=== PATIENT | female | born 1945 | race Caucasian/White ===

== ENCOUNTER → 2016-12-23 | Outpatient (CLI) | payer OTHER ==
[~2016-12-23] MED LIST: ATOR-54 PO; CEPH-571 PO; PRED10TA PO; VALA1TAB PO; WARF5TAB90 PO; WARF7.5T PO
[2016-12-23 12:52] LABS: BASO % 0.6 %; BASO ABS # 0.05 K/uL (0-0.2); COMPLETE YES; EOS % 1.2 %; HEMATOCRIT 42.6 % (37-47); IG% 0.7 %; LYMPH % 29.3 %; LYMPH ABS # 2.44 K/uL (1.2-3.4); MEAN CELL VOLUME 90.6 fL (80-100); MEAN CORPUSCULAR HEMOGLOBIN 30.6 pg (25-34); MEAN CORPUSCULAR HGB CONC 33.8 g/dl (32-36); MEAN PLATELET VOLUME 9.3 fL (7.4-10.4); MONO % 7.8 %; NEUT % 60.4 %; PLATELET COUNT 235 K/uL (130-400); WHITE BLOOD COUNT 8.34 K/uL (4.8-10.8)
[2016-12-23 13:05] LABS: ALT/SGPT 42 U/L (12-78); BLOOD UREA NITROGEN 10 mg/dl (7-18); BUN/CREATININE RATIO 15.5 (10-20); CALCIUM 8.9 mg/dl (8.5-10.1); CARBON DIOXIDE 27 mmol/L (21-32); CHLORIDE 106 mmol/L (98-107); CHOLESTEROL 234 mg/dl (0-200); CREATININE 0.64 mg/dl (0.60-1.20); GLUCOSE 100 mg/dl (70-99); SODIUM 141 mmol/L (136-145); TRIGLYCERIDES 214 mg/dl (0-150); VERY LOW DENSITY LIPOPROT CALC 43 mg/dl
[2016-12-23 13:10] LABS: ALB/GLOB RATIO 0.9 (0.9-2); ALKALINE PHOSPHATASE 114 U/L (45-117); AST/SGOT 25 U/L (15-37); CHOLESTEROL/HDL RATIO 3.3; HDL CHOLESTEROL 71 mg/dl; LDL CHOLESTEROL CALCULATED 120 mg/dl
== END | disposition home or self-care (01) ==
LOC: C.LABPVFM 13:00
PROVIDERS: ATTEND Family Medicine
DX: D86.9 Sarcoidosis, unspecified (principal); E78.00 Pure hypercholesterolemia, unspecified; M81.0 Age-related osteoporosis without current pathological fracture

== ENCOUNTER 2017-01-05 10:51 | Emergency (ER) | payer OTHER ==
[~2017-01-05] VITALS: Ht 152.4 cm; Wt 78.1 kg
[2017-01-05 10:55] VITALS: TEMP 36.9; Ht 152.4 cm; Wt 78.1 kg
[2017-01-05 11:19] VITALS: O2SAT 96
[2017-01-05] MEDS ORDERED: ALBUT/IPRATROP 3MG/0.5MG NEB 3 ML VIAL INH STA (11:36)
[2017-01-05] MEDS ORDERED: LEVAQUIN 750MG / 150ML D5W IV STA (11:36)
[2017-01-05] MEDS ORDERED: METHYLPREDNISOLONE 125 MG VIAL ONE (11:43)
[2017-01-05] MEDS ORDERED: METHYLPREDNISOLONE IV 125 MG in SYRINGE 0 ML IV ONE (11:45)
[2017-01-05 11:57] LABS: BASO % 0.5 %; BASO ABS # 0.04 K/uL (0-0.2); COMPLETE YES; EOS % 0.1 %; HEMATOCRIT 41.8 % (37-47); IG% 0.6 %; LYMPH % 11.3 %; LYMPH ABS # 0.87 K/uL (1.2-3.4); MEAN CELL VOLUME 88.4 fL (80-100); MEAN CORPUSCULAR HEMOGLOBIN 30.4 pg (25-34); MEAN CORPUSCULAR HGB CONC 34.4 g/dl (32-36); MEAN PLATELET VOLUME 8.7 fL (7.4-10.4); MONO % 2.1 %; NEUT % 85.4 %; PLATELET COUNT 208 K/uL (130-400); RED BLOOD COUNT 4.73 M/uL (4.2-5.4); WHITE BLOOD COUNT 7.71 K/uL (4.8-10.8)
[2017-01-05 12:05] LABS: BLOOD UREA NITROGEN 11 mg/dl (7-18); BUN/CREATININE RATIO 14.5 (10-20); CALCIUM 9.1 mg/dl (8.5-10.1); CARBON DIOXIDE 26 mmol/L (21-32); CHLORIDE 100 mmol/L (98-107); CREATININE 0.77 mg/dl (0.60-1.20); GLUCOSE 212 mg/dl (70-99); POTASSIUM 3.9 mmol/L (3.5-5.1); SODIUM 135 mmol/L (136-145)
[2017-01-05 12:21] LABS: PARTIAL THROMBOPLASTIN RATIO 1.9; PROTHROMBIN TIME (PATIENT) 41.1 SECONDS (9.0-12.0)
[2017-01-05 12:51] LABS: INR 3.6 (0.9-1.1)
--- NOTE | 2017-01-05 15:44 | EMERGENCY ROOM VISIT NOTE ---
History Report prepared by Deedee: Molly Cary Under the Supervision of: Dr. Kris Torres D.O. First contact with patient: 11:27 Chief Complaint: RESPIRATORY PROBLEMS Stated Complaint: ACUTE BRONCHITIS, COUGH, SOB Nursing Triage Summary: Short of breath, cough for approx one week, seen in [facility] office, oxygen sats 88-89%, told to come to the ER. See orange call-in note. History of Present Illness The patient is a 71 year old female who presents to the Emergency Room with complaints of a persistent cough for the past five days. The patient states that her cough has been productive and notes that she has been bringing up white sputum. The patient notes a history of Sarcoidosis, but denies any history of congestive heart failure. She denies wearing oxygen at home, but states that she sleeps with a c-pap machine. The patient denies using nebulizers at home. She states that for the last 48 hours she has been on an antibiotic and steroids. She states that she has a history of a TIA at the age of 36. The patient states that she has a history of PE after her hysterectomy. She states that she is on Warfarin for her previous PE and TIA. The patient notes a history of Factor V. She associates shortness of breath with her symptoms today. The patient states that she had seen her PCP a few days ago, noting that she got a pneumonia shot. Source of History: patient Onset: five days Quality: other (global) Timing: other (persistent) Modifying Factors (Worsening): other (cough) Associated Symptoms: + SOB Review of Systems See HPI for pertinent positives & negatives. A total of 10 systems reviewed and were otherwise negative. Past Medical & Surgical Medical Problems: (1) Factor V Leiden mutation (2) H/O: hysterectomy (3) History of sarcoidosis (4) Pulmonary embolism (5) TIA (transient ischemic attack) Family History Diabetes mellitus Social History Smoking Status: Never Smoker Alcohol Use: none Drug Use: none Marital Status: Housing Status: lives with family Current/Historical Medications Scheduled Atorvastatin (Lipitor), 20 MG PO DAILY Cephalexin (Keflex), 500 MG PO QID Prednisone Tab (Prednisone), 10 MG PO DAILY Warfarin Sodium (Coumadin), 5 MG PO DAILY Allergies Coded Allergies: Chocolate (Verified Allergy, Unknown, 12/18/09) Physical Exam Vital Signs Date Time Temp Pulse Resp B/P Pulse Ox O2 Delivery O2 Flow Rate FiO2 01/05/17 13:57 86 20 154/78 96 Nasal Cannula 2.0 01/05/17 12:46 86 18 167/84 01/05/17 11:23 89 01/05/17 11:19 92 Room Air 01/05/17 11:19 96 Nasal Cannula 2.0 01/05/17 10:58 92 Room Air 01/05/17 10:55 36.9 82 24 171/87 92 Room Air Physical Exam CONSTITUTIONAL/VITAL SIGNS: Reviewed / noted above. GENERAL: Non-toxic in appearance. INTEGUMENTARY: Warm, dry, and [place]. HEAD: Normocephalic. EYES: without scleral icterus or trauma. ENT/OROPHARYNX: clear and moist. LYMPHADENOPATHY/NECK: Is supple without lymphadenopathy or meningismus. RESPIRATORY: Bilateral expiratory wheezing, diminished breath sounds. Mild increased work of breathing. CARDIOVASCULAR: Regular rate and rhythm. GI/ABDOMEN: Soft and nontender. No organomegaly or pulsatile mass. No rebound or guarding. Normal bowel sounds. EXTREMITIES: Warm and well perfused. BACK: No CVA tenderness. NEUROLOGICAL: Intact without focal deficits. PSYCHIATRIC: normal affect. MUSCULOSKELETAL: Normally developed with good muscle tone. Medical Decision & Procedures ER Provider Diagnostic Interpretation: X ray results and stated below per my interpretation and radiology interpretation. CHEST 2 VIEWS ROUTINE CLINICAL HISTORY: SOB dyspnea COMPARISON STUDY: 10/28/2015 FINDINGS: Diffuse mid and upper lobe fibrotic change. Chronic pleural reactive change left lung base. No evidence for an acute or superimposed process. IMPRESSION: Diffuse pulmonary fibrotic change unaltered from the prior study. No acute process. Electronically signed by: Cy Desai M.D. 01/05/2017 9:44 AM Dictated Date/Time: 01/05/2017 9:43 AM The status of this report is Signed. Draft = Not yet reviewed or approved by Radiologist. Signed = Reviewed and approved by Radiologist. Laboratory Results 01/05/17 11:20 Red Blood Count 4.73, Mean Corpuscular Volume 88.4, Mean Corpuscular Hemoglobin 30.4, Mean Corpuscular Hemoglobin Concent 34.4, Mean Platelet Volume 8.7, Neutrophils (%) (Auto) 85.4, Lymphocytes (%) (Auto) 11.3, Monocytes (%) (Auto) 2.1, Eosinophils (%) (Auto) 0.1, Basophils (%) (Auto) 0.5, Neutrophils # (Auto) 6.58, Lymphocytes # (Auto) 0.87, Monocytes # (Auto) 0.16, Eosinophils # (Auto) 0.01, Basophils # (Auto) 0.04 01/05/17 11:20 Test 01/05/17 11:20 01/05/17 11:50 White Blood Count 7.71 K/uL (4.8-10.8) Red Blood Count 4.73 M/uL (4.2-5.4) Hemoglobin 14.4 g/dL (12.0-16.0) Hematocrit 41.8 % (37-47) Mean Corpuscular Volume 88.4 fL (80-100) Mean Corpuscular Hemoglobin 30.4 pg (25-34) Mean Corpuscular Hemoglobin Concent 34.4 g/dl (32-36) Platelet Count 208 K/uL (130-400) Mean Platelet Volume 8.7 fL (7.4-10.4) Neutrophils (%) (Auto) 85.4 % Lymphocytes (%) (Auto) 11.3 % Monocytes (%) (Auto) 2.1 % Eosinophils (%) (Auto) 0.1 % Basophils (%) (Auto) 0.5 % Neutrophils # (Auto) 6.58 K/uL (1.4-6.5) Lymphocytes # (Auto) 0.87 K/uL (1.2-3.4) Monocytes # (Auto) 0.16 K/uL (0.11-0.59) Eosinophils # (Auto) 0.01 K/uL (0-0.5) Basophils # (Auto) 0.04 K/uL (0-0.2) RDW Standard Deviation 45.5 fL (36.4-46.3) RDW Coefficient of Variation 13.9 % (11.5-14.5) Immature Granulocyte % (Auto) 0.6 % Immature Granulocyte # (Auto) 0.05 K/uL (0.00-0.02) Prothrombin Time 41.1 SECONDS (9.0-12.0) Prothromb Time International Ratio 3.6 (0.9-1.1) Activated Partial Thromboplast Time 50.4 SECONDS (21.0-31.0) Partial Thromboplastin Ratio 1.9 Anion Gap 9.0 mmol/L (3-11) Est Creatinine Clear Calc Drug Dose 60.1 ml/min Estimated GFR () 88.8 Estimated GFR (Non- 76.6 BUN/Creatinine Ratio 14.5 (10-20) Calcium Level 9.1 mg/dl (8.5-10.1) Troponin I < 0.015 ng/ml (0-0.045) Influenza Type A Antigen Neg for Influ A (NEG) Influenza Type B Antigen Neg for Influ B (NEG) Laboratory results as stated above per my review. Medications Administered Medications (Trade) Dose Ordered Sig/Tejal Route Start Time Stop Time Status Last Admin Dose Admin Albuterol/ Ipratropium (Duoneb) 3 ml NOW STAT INH 01/05/17 11:36 01/05/17 11:39 DC 01/05/17 11:50 3 ML Levofloxacin (Levaquin / D5W) 750 mg NOW STAT IV 01/05/17 11:36 01/05/17 11:39 DC 01/05/17 12:10 750 MG Methylprednisolone Sodium Succinate (Solu-Medrol IV) 125 mg STK-MED ONCE .ROUTE 01/05/17 11:43 01/05/17 11:46 DC 01/05/17 11:50 125 MG ECG Indication: SOB/dyspnea Rate (beats per minute): 91 Rhythm: normal sinus Findings: no acute ischemic change, no ectopy ED Course 1133: Previous medical records were reviewed. The patient was evaluated in room C8. A complete history and physical examination was performed. 1136: Ordered Levofloxacin 750 mg IV, DuoNeb 3 ml INH. 1143: Ordered Solu-Medrol IV 125 mg .route. 1145: Ordered Methylprednisolone Sodium Succinate 125 mg/Syringe 2 ml @ 1.5 mls/ min IV. 1539: I reevaluated the patient and she is resting comfortably. I discussed the exam findings with her and I discussed the treatment plan. She verbalized complete understanding and agreement. She is ready to go home. Medical Decision The differential was considered includes acute myocardial infarction, acute coronary syndrome, myocarditis, pericarditis, pericardial effusions /tamponad, esophageal perforation, pulmonary embolism, pneumonia, pneumothorax, cardiomyopathy, congestive heart, anemia , COPD/asthma exacerbation. This is a 71-year-old female who presents to the ED with a chief complaint of shortness of breath and cough for the past 5 days. She reports a small amount of white phlegm. She's been on antibiotics for the past 48 hours and prednisone as well. She will be on that for 5 days. The patient does have a history of PE and is on Coumadin. Her vital signs are stable. Her exam reveals expiratory wheezing throughout. Chest x-ray reveals diffuse chronic fibrotic changes but nothing acute. EKG shows a normal sinus rhythm. INR 3.6. CBC is normal. PRP is unremarkable. Glucose was 222 white related to steroids. Troponin is negative. Flu swab was negative. The patient was told results of the tests. She was treated with DuoNeb treatment here and IV Solu- Medrol as well as IV Levaquin. The patient was told results the test. She is stable for discharge. Impression Primary Impression: Bronchitis Scribe Attestation The scribe's documentation has been prepared under my direction and personally reviewed by me in its entirety. I confirm that the note above accurately reflects all work, treatment, procedures, and medical decision making performed by me. Departure Information Dispostion Home / Self-Care Referrals Remi Reagan M.D. (PCP) Patient Instructions Bronchitis Acute, My [facility] Additional Instructions Follow-up with your doctor for further care and evaluation in 1-2 days. Return to the emergency department for worsening or new symptoms or any concerns. You have been examined and treated today on an emergency basis only. This is not a substitute for, or an effort to provide, complete comprehensive medical care. It is impossible to recognize and treat all injuries or illnesses in a single emergency department visit. It is therefore important that you follow up closely with your doctor. Call as soon as possible for an appointment. Continue your current home therapy.
[2017-01-05 16:02] VITALS: BP 154/78; PULSE 96; O2SAT 91
== END 2017-01-05 16:09 | disposition home or self-care (01) ==
LOC: C.EDB 10:54 → C.EDC 16:09
DX: J40 Bronchitis, not specified as acute or chronic (principal); Z86.73 Personal history of transient ischemic attack (TIA), and cerebral infarction without residual deficits; Z90.710 Acquired absence of both cervix and uterus; Z86.711 Personal history of pulmonary embolism; Z79.01 Long term (current) use of anticoagulants; D68.51 Activated protein C resistance; Z83.3 Family history of diabetes mellitus; Z79.899 Other long term (current) drug therapy; J84.10 Pulmonary fibrosis, unspecified

== ENCOUNTER → 2017-01-05 | Outpatient (CLI) | payer OTHER ==
--- NOTE | 2017-01-05 09:46 | DIAGNOSTIC IMAGING REPORT ---
CHEST 2 VIEWS ROUTINE CLINICAL HISTORY: SOB dyspnea COMPARISON STUDY: 10/28/2015 FINDINGS: Diffuse mid and upper lobe fibrotic change. Chronic pleural reactive change left lung base. No evidence for an acute or superimposed process. IMPRESSION: Diffuse pulmonary fibrotic change unaltered from the prior study. No acute process. Electronically signed by: Cy Desai M.D. 01/05/2017 9:44 AM Dictated Date/Time: 01/05/2017 9:43 AM
== END | disposition home or self-care (01) ==
LOC: C.RADPV 09:31
PROVIDERS: ATTEND Nurse Practitioner
DX: R06.02 Shortness of breath (principal); J84.10 Pulmonary fibrosis, unspecified

== ENCOUNTER → 2017-02-16 | Outpatient (CLI) | payer OTHER ==
[~2017-02-16] MED LIST changes: -VALA1TAB PO; -WARF7.5T PO
[2017-02-16 18:52] LABS: LYME DISEASE AB IGG NEG (NEG); LYME DISEASE AB IGM NEG (NEG)
== END | disposition home or self-care (01) ==
LOC: C.LABPVFM 11:55
PROVIDERS: ATTEND Family Medicine
DX: T14.8 Other injury of unspecified body region (principal); W57.XXXA Bitten or stung by nonvenomous insect and other nonvenomous arthropods, initial encounter

== ENCOUNTER → 2017-04-17 | Outpatient (CLI) | payer OTHER ==
[2017-04-17 12:18] LABS: BASO % 1.3 %; BASO ABS # 0.08 K/uL (0-0.2); COMPLETE YES; EOS % 1.9 %; HEMATOCRIT 42.9 % (37-47); IG% 0.5 %; LYMPH % 35.5 %; LYMPH ABS # 2.25 K/uL (1.2-3.4); MEAN CELL VOLUME 92.3 fL (80-100); MEAN CORPUSCULAR HEMOGLOBIN 30.8 pg (25-34); MEAN CORPUSCULAR HGB CONC 33.3 g/dl (32-36); MEAN PLATELET VOLUME 9.4 fL (7.4-10.4); MONO % 8.7 %; NEUT % 52.1 %; PLATELET COUNT 225 K/uL (130-400); RED BLOOD COUNT 4.65 M/uL (4.2-5.4); WHITE BLOOD COUNT 6.33 K/uL (4.8-10.8)
[2017-04-17 12:37] LABS: ALT/SGPT 26 U/L (12-78); AST/SGOT 16 U/L (15-37); BLOOD UREA NITROGEN 9 mg/dl (7-18); CALCIUM 8.7 mg/dl (8.5-10.1); CARBON DIOXIDE 26 mmol/L (21-32); CHLORIDE 108 mmol/L (98-107); CREATININE 0.62 mg/dl (0.60-1.20); GLUCOSE 98 mg/dl (70-99); POTASSIUM 4.2 mmol/L (3.5-5.1); SODIUM 143 mmol/L (136-145)
[2017-04-17 12:40] LABS: ALB/GLOB RATIO 0.9 (0.9-2); ALKALINE PHOSPHATASE 124 U/L (45-117); CHOLESTEROL 194 mg/dl (0-200); CHOLESTEROL/HDL RATIO 3.1; HDL CHOLESTEROL 63 mg/dl; LDL CHOLESTEROL CALCULATED 87 mg/dl; TRIGLYCERIDES 218 mg/dl (0-150); VERY LOW DENSITY LIPOPROT CALC 44 mg/dl
== END | disposition home or self-care (01) ==
LOC: C.LABPVFM 14:05
PROVIDERS: ATTEND Family Medicine
DX: D86.9 Sarcoidosis, unspecified (principal); E78.00 Pure hypercholesterolemia, unspecified; I26.99 Other pulmonary embolism without acute cor pulmonale

== ENCOUNTER → 2017-05-02 | Outpatient (CLI) | payer OTHER ==
[2017-05-02 15:13] LABS: LYME DISEASE AB IGG NEG (NEG)
[2017-05-02 15:18] LABS: LYME DISEASE AB IGM NEG (NEG)
== END | disposition home or self-care (01) ==
LOC: C.LABPVFM 11:50
PROVIDERS: ATTEND Family Medicine
DX: T14.8 Other injury of unspecified body region (principal); W57.XXXA Bitten or stung by nonvenomous insect and other nonvenomous arthropods, initial encounter

== ENCOUNTER → 2017-09-26 | Outpatient (CLI) | payer OTHER ==
[2017-09-26 12:33] LABS: BASO % 1.1 %; BASO ABS # 0.07 K/uL (0-0.2); COMPLETE YES; EOS % 3.3 %; HEMATOCRIT 43.9 % (37-47); IG% 0.6 %; LYMPH % 31.5 %; LYMPH ABS # 2.03 K/uL (1.2-3.4); MEAN CELL VOLUME 91.6 fL (80-100); MEAN CORPUSCULAR HEMOGLOBIN 30.5 pg (25-34); MEAN CORPUSCULAR HGB CONC 33.3 g/dl (32-36); MEAN PLATELET VOLUME 9.6 fL (7.4-10.4); MONO % 8.1 %; NEUT % 55.4 %; PLATELET COUNT 231 K/uL (130-400); RED BLOOD COUNT 4.79 M/uL (4.2-5.4); WHITE BLOOD COUNT 6.45 K/uL (4.8-10.8)
[2017-09-26 13:03] LABS: ALT/SGPT 30 U/L (12-78); BLOOD UREA NITROGEN 9 mg/dl (7-18); BUN/CREATININE RATIO 12.7 (10-20); CALCIUM 9.2 mg/dl (8.5-10.1); CARBON DIOXIDE 27 mmol/L (21-32); CHLORIDE 105 mmol/L (98-107); CHOLESTEROL 188 mg/dl (0-200); CREATININE 0.69 mg/dl (0.60-1.20); GLUCOSE 106 mg/dl (70-99); POTASSIUM 4.1 mmol/L (3.5-5.1); SODIUM 142 mmol/L (136-145)
[2017-09-26 13:06] LABS: ALB/GLOB RATIO 0.9 (0.9-2); ALKALINE PHOSPHATASE 132 U/L (45-117); AST/SGOT 20 U/L (15-37); CHOLESTEROL/HDL RATIO 3.2; HDL CHOLESTEROL 59 mg/dl; LDL CHOLESTEROL CALCULATED 79 mg/dl; TRIGLYCERIDES 252 mg/dl (0-150); VERY LOW DENSITY LIPOPROT CALC 50 mg/dl
== END | disposition home or self-care (01) ==
LOC: C.LABPVFM 13:11
PROVIDERS: ATTEND Family Medicine
DX: D86.9 Sarcoidosis, unspecified (principal); E78.00 Pure hypercholesterolemia, unspecified; Z79.01 Long term (current) use of anticoagulants; R03.0 Elevated blood-pressure reading, without diagnosis of hypertension

== ENCOUNTER → 2017-10-17 | Outpatient (CLI) | payer OTHER | END | disposition home or self-care (01) | LOC: C.LABPVFM 12:29 | PROVIDERS: ATTEND Family Medicine | DX: D86.9 Sarcoidosis, unspecified (principal) ==

== ENCOUNTER → 2017-12-01 | Outpatient (CLI) | payer OTHER | END | disposition home or self-care (01) | LOC: C.LABPVFM 16:29 | PROVIDERS: ATTEND Nurse Practitioner | DX: D86.9 Sarcoidosis, unspecified (principal) ==

== ENCOUNTER → 2018-02-02 | Outpatient (CLI) | payer OTHER ==
[2018-02-02 13:12] LABS: BLOOD UREA NITROGEN 11 mg/dl (7-18); CARBON DIOXIDE 25 mmol/L (21-32); CREATININE 0.71 mg/dl (0.60-1.20); GLUCOSE 326 mg/dl (70-99); POTASSIUM 3.9 mmol/L (3.5-5.1); SODIUM 134 mmol/L (136-145)
[2018-02-03 07:38] LABS: HEMOGLOBIN A1C 12.5 % (4.5-5.6)
== END | disposition home or self-care (01) ==
LOC: C.LABPVFM 14:07
PROVIDERS: ATTEND Nurse Practitioner
DX: R73.9 Hyperglycemia, unspecified (principal); D68.51 Activated protein C resistance; E78.00 Pure hypercholesterolemia, unspecified

== ENCOUNTER → 2018-03-14 | Outpatient (CLI) | payer OTHER ==
[2018-03-14 13:35] LABS: ALBUMIN 3.7 gm/dl (3.4-5.0); ALT/SGPT 34 U/L (12-78); AST/SGOT 19 U/L (15-37); BLOOD UREA NITROGEN 14 mg/dl (7-18); CALCIUM 9.1 mg/dl (8.5-10.1); CARBON DIOXIDE 27 mmol/L (21-32); CREATININE 0.63 mg/dl (0.60-1.20); GLUCOSE 126 mg/dl (70-99); POTASSIUM 4.1 mmol/L (3.5-5.1); SODIUM 138 mmol/L (136-145)
[2018-03-14 13:38] LABS: ALKALINE PHOSPHATASE 98 U/L (45-117); TOTAL PROTEIN 6.9 gm/dl (6.4-8.2)
[2018-03-14 13:40] LABS: HEMOGLOBIN A1C 10.4 % (4.5-5.6)
== END | disposition home or self-care (01) ==
LOC: C.LABPVFM 08:16
PROVIDERS: ATTEND Family Medicine
DX: E11.9 Type 2 diabetes mellitus without complications (principal)

== ENCOUNTER 2018-11-25 13:31 | Observation (INO) ==
[2018-11-25 14:19] LABS: Basophils # (auto) 0.05 K/uL (0-0.2); Basophils % (auto) 0.6 %; Eosinophils % (auto) 1.3 %; Hematocrit (blood only) 44.3 % (37-47); Hemoglobin 15.2 g/dL (12.0-16.0); Immature Granulocytes # (auto) 0.02 K/uL (0.00-0.02); Immature Granulocytes % (auto) 0.3 %; Lymphocytes # (auto) 1.61 K/uL (1.2-3.4); Lymphocytes % (auto) 20.5 %; Mean Corpuscular Hgb Conc 34.3 g/dL (32-36); Mean Corpuscular Volume 92.7 fL (80-100); Mean Platelet Volume 8.9 fL (7.4-10.4); Monocytes # (auto) 0.74 K/uL (0.11-0.59); Monocytes % (auto) 9.4 %; Neutrophils # (auto) 5.35 K/uL (1.4-6.5); Neutrophils % (auto) 67.9 %; Platelet Count 212 K/uL (130-400); RDW Coefficient of Variation 12.8 % (11.5-14.5); RDW Standard Deviation 43.5 fL (36.4-46.3); Red Blood Count 4.78 M/uL (4.2-5.4); White Blood Count 7.87 K/uL (4.8-10.8)
[2018-11-25 14:33] LABS: INR 2.3 (0.9-1.1); Partial Thromboplastin Ratio 1.4; Partial Thromboplastin Time 35.4 Seconds (21.0-31.0); Prothrombin Time 22.2 Seconds (9.0-12.0)
[2018-11-25 14:37] LABS: Alanine Aminotransferase 24 U/L (12-78); Albumin Level 3.6 gm/dl (3.4-5.0); Aspartate Aminotransferase 16 U/L (15-37); BUN Creatinine Ratio 14.1 (10-20); Blood Urea Nitrogen 12 mg/dl (7-18); Calcium 8.9 mg/dl (8.5-10.1); Carbon Dioxide 26 mmol/L (21-32); Chloride 101 mmol/L (98-107); Creatinine Clr Calc Pharmacy 47.6 ml/min; Est GFR (African American) 78.8; Glucose 86 mg/dl (70-99); Magnesium 1.9 mg/dl (1.8-2.4); Potassium 3.7 mmol/L (3.5-5.1); Sodium 138 mmol/L (136-145)
[2018-11-25 14:37] LABS: Appearance Urine Clear (Clear); Bacteria Urine Automated Negative (Negative); Bilirubin Urine Negative (Negative); Color Urine Dark Yellow; Epithelial Cell Urine Auto 20-30 /lpf (0-5); Glucose Urine UA Negative (Negative); Ketones Urine Trace (Negative); Leukocyte Esterase Urine 2+ (Negative); Nitrite Urine Negative (Negative); Protein Urine Negative (Negative); Specific Gravity Urine 1.021 (1.000-1.030); Urobilinogen Urine Negative (Negative); pH Urine 5.5 (4.5-7.5)
[2018-11-25 14:42] LABS: Albumin Globulin Ratio 1.1 (0.9-2); Alkaline Phosphatase 76 U/L (45-117); Bilirubin,Total 1.4 mg/dl (0.2-1); Globulin 3.4 gm/dl (2.5-4.0); Troponin I < 0.015 ng/ml (0-0.045)
[2018-11-25] MEDS ORDERED: IOVERSOL 100ml IV PRN (15:13)
--- NOTE | 2018-11-25 15:24 | CT Scan Report ---
HEAD CT NONCONTRAST CT DOSE: HISTORY: Stroke evaluation TECHNIQUE: Multiaxial CT images of the head were performed without the use of intravenous contrast. A utomated exposure control was utilized for this study. A dose lowering technique was utilized adheri ng to the principles of ALARA. Comparison: None. Findings: The paranasal sinuses and mastoid air cells are clear. The calvarium and skull base are int act. The ventricles and sulci are within normal limits. There is no mass, hematoma, midline shift, or acute infarct. Impression: No acute intracranial abnormality. Electronically signed by: Werner Umaña M.D. 11/25/2018 3:22 PM
--- NOTE | 2018-11-25 15:29 | CT Scan Report ---
HEAD & NECK CTA HISTORY: expressive aphasia, resolved TECHNIQUE: Multiaxial CT images of the head were performed following the intravenous administration o f contrast to evaluate the major cerebral vessels. Multiaxial CT images of the neck were also perform ed following the intravenous administration of contrast to evaluate the major cervical vessels. Maxim um intensity projection images were also obtained. A dose lowering technique was utilized adhering to the principles of ALARA. COMPARISON: None. FINDINGS: There is no mass, hematoma, midline shift, or acute infarct. Visualized intracranial internal carotid arteries, distal vertebral arteries, and basilar artery are widely patent. There is no significant s tenosis, occlusion, or aneurysm seen within the bilateral ACAs, MCAs, or gas producer. Hypoplastic distal rig ht vertebral artery. The aortic arch and proximal great vessels are widely patent. There is no significant stenosis, occ lusion, or dissection identified within the bilateral common carotid, internal carotid, or vertebral arteries. Bilateral irregular airspace opacities within the visualized lungs persist. This favors sca rring. No pneumothorax. There is a 2.6 cm substernal thyroid nodule. Slightly hypoplastic right verte bral artery. IMPRESSION: 1. No significant stenosis, occlusion, or aneurysm within the [place]. 2. No significant stenosis, occlusion, or dissection identified within the carotid or vertebral arter ies. 3. A 2.6 cm substernal thyroid nodule. Electronically signed by: Werner Umaña M.D. 11/25/2018 3:28 PM
--- NOTE | 2018-11-25 15:29 | CT Scan Report ---
HEAD & NECK CTA HISTORY: expressive aphasia, resolved TECHNIQUE: Multiaxial CT images of the head were performed following the intravenous administration o f contrast to evaluate the major cerebral vessels. Multiaxial CT images of the neck were also perform ed following the intravenous administration of contrast to evaluate the major cervical vessels. Maxim um intensity projection images were also obtained. A dose lowering technique was utilized adhering to the principles of ALARA. COMPARISON: None. FINDINGS: There is no mass, hematoma, midline shift, or acute infarct. Visualized intracranial internal carotid arteries, distal vertebral arteries, and basilar artery are widely patent. There is no significant s tenosis, occlusion, or aneurysm seen within the bilateral ACAs, MCAs, or box printer. Hypoplastic distal rig ht vertebral artery. The aortic arch and proximal great vessels are widely patent. There is no significant stenosis, occ lusion, or dissection identified within the bilateral common carotid, internal carotid, or vertebral arteries. Bilateral irregular airspace opacities within the visualized lungs persist. This favors sca rring. No pneumothorax. There is a 2.6 cm substernal thyroid nodule. Slightly hypoplastic right verte bral artery. IMPRESSION: 1. No significant stenosis, occlusion, or aneurysm within the [place]. 2. No significant stenosis, occlusion, or dissection identified within the carotid or vertebral arter ies. 3. A 2.6 cm substernal thyroid nodule. Electronically signed by: Werner Umaña M.D. 11/25/2018 3:28 PM
[2018-11-25] MEDS ORDERED: ASPIRIN 81 MG CHEW PO STA (16:10)
--- NOTE | 2018-11-25 16:23 | History & Physical Report ---
Date of Service November 25, 2018 Assessment & Plan (1) History of TIA (transient ischemic attack): Patient 50-minute transient episode of word searching or word finding issues. Initial imaging study in the ER is unremarkable will order an MRI of her brain, Doppler. And an echocardiogram due to her new found heart murmur. She is given an aspirin continued on her home medications at this point time (2) Diabetes: Because of the dye use for her CT angiogram her metformin will be held insulin sliding scale will be used with a carbohydrate friendly diet (3) Factor V Leiden mutation: Patient is therapeutic with her INR Coumadin will be continued (4) Adrenal suppression: Patient is on chronic prednisone use for history of sarcoidosis she is not exhibiting any signs and symptoms of adrenal insufficiency we will continue to monitor her for clinical signs (5) DVT prophylaxis: DVT prevention is Coumadin History of Present Illness Primary Care Provider: RASHI Stanford Patient is a 73-year-old relatively healthy female with a history of factor V Leiden and sarcoidosis which is been in remission who had a 15-minute episode of inability to speak word searching at home. She is in the presence of her family when she was sort of leaning to the side with a positive look on her face and can communicate with them for about 15 minutes. The patient typically only takes metformin for her diabetes and her diabetes is of recent onset after she had influenza. Her blood sugar this morning was in the 90s and it currently was 86 on presentation. Complete resolution of her symptoms here in the ER she had a negative head CT CTA of head and neck which was unremarkable the exception of a thyroid nodule commented on, her EKG shows sinus rhythm with right bundle branch block To be brought in for observation as she had an ABC D2 score suggestive that she should be observed Allergies Allergy/AdvReac Type Severity Reaction Status Date / Time chocolate flavor Allergy Unknown Verified 11/25/18 14:49 Home Medications Home Medications Medication Instructions Recorded Confirmed Type ascorbic acid (vitamin C) 500 mg PO HS 11/25/18 11/25/18 History atorvastatin [Lipitor] 20 mg PO HS 11/25/18 11/25/18 History calcium carbonate [Calcium 500] 500 mg PO HS 11/25/18 11/25/18 History cholecalciferol (vitamin D3) 1,000 units PO HS 11/25/18 11/25/18 History [Vitamin D3] latanoprost [Xalatan] 1 drp OPB HS 11/25/18 11/25/18 History metformin [Glucophage] 1,000 mg PO BID 11/25/18 11/25/18 History prednisone 10 mg PO HS 11/25/18 11/25/18 History vitamin B complex 1 tab PO HS 11/25/18 11/25/18 History vitamin E 400 unit PO HS 11/25/18 11/25/18 History warfarin [Coumadin] 5 mg PO HS 11/25/18 11/25/18 History zinc 50 mg PO 3XWK 11/25/18 11/25/18 History Past Med/Surg History Medical History History of sarcoidosis (Chronic) Factor V Leiden mutation (Chronic) Diabetes (Chronic) History of TIA (transient ischemic attack) (Resolved) HTN (hypertension) Family History Mother Diabetes Stroke Social History Feels Safe at Home: Yes Smoking Status: Never smoker Review of Systems ROS: well nourished well developed. Patient an episode of word searching lasting approximately 15 minutes the remainder of the review of systems are unremarkable No double vision blurry vision No problems with speech or swallowing No palpitations, chest pain or pressure No Wheezing or breathing issues No abdominal pain nausea vomiting diarrhea changes in appetite or weight No burning urine urine frequency or changes in color No focal joint pain or muscle pain No skin rashes or oral lesions No unusual bruising or bleeding No focused back pain or numbness or loss of strength No changes in memory or confusion Physical Exam 2 Vital Signs (Past 24 Hours): Last Vital Signs Temp 36.9 C 11/25/18 13:33 Pulse 80 11/25/18 16:15 Resp 18 11/25/18 16:15 BP 151/82 H 11/25/18 16:15 Pulse Ox 95 11/25/18 16:15 The patient appeared well nourished and normally developed. Vital signs as documented. Head exam is unremarkable. No scleral icterus or corneal arcus noted Neck is without jugular venous distension, thyromegaly, or lymphademopathy Lungs are clear to auscultation and percussion. Cardiac exam reveals Rhythm is regular. First and second heart sounds normal. She did have a heart murmur which she was not sure that she had been told before Abdominal exam reveals normal bowel sounds, no masses, no organomegaly Extremities are nonedematous and both pedal pulses are normal. Neurologic exam is A&Ox3, no focal deficits, strength is equal bilateral Skin is warm Dry without bruises or lesions Results & Data Diagnostic Findings cta head and neck IMPRESSION: 1. No significant stenosis, occlusion, or aneurysm within the [place]. 2. No significant stenosis, occlusion, or dissection identified within the carotid or vertebral arteries. 3. A 2.6 cm substernal thyroid nodule.
--- NOTE | 2018-11-25 16:48 | Emergency Department Note ---
Entered by Bari Ocampo acting as a scribe for Salomón Mccallum MD History of Present Illness General Chief complaint: Confusion Stated complaint: CONFUSED DOESNT SEEM RIGHT Time Seen by Provider: 11/25/18 13:44 Source: patient and family History of Present Illness Onset (ago): hour(s) 1 Location: mouth (speech) Pain Consistency: + now resolved Quality: + other (speech difficulties for 15 minutes) Associated symptoms: no chest pain, no loss of appetite, no nausea/vomiting and no shortness of breath The patient is a 73 year old white female with a history of diabetes, TIA, PE and Factor V Leiden who presents to the Emergency Room with complaints of currently resolved speech difficulties occurring one hour ago. Family reports that for a period of 15 minutes, the patients words were scrambled and coming out backwards, noting difficulty with pronunciation. The patient states that she was aware she was not speaking properly and knew what she wanted to say. She states that she temporarily had a headache but nothing that youd take a pill for. She denies chest pain, shortness of breath, fall, head trauma , visual or hearing changes, loss of appetite, nausea, or vomiting. She denies a history of similar symptoms, migraines, or seizures. She does not she had a TIA in her 40s and regularly takes Coumadin, and her last INR was 1.8. She states that she does not drink alcohol or use tobacco. She reports that she regularly takes metformin for diabetes. The patient is not a tPA candidate as she takes Coumadin and is currently asymptomatic. Home Medications Home Medications Medication Instructions Recorded Confirmed Type ascorbic acid (vitamin C) 500 mg PO HS 11/25/18 11/25/18 History atorvastatin [Lipitor] 20 mg PO 11/25/18 11/25/18 History calcium carbonate [Calcium 500] 500 mg PO 11/25/18 11/25/18 History cholecalciferol (vitamin D3) 1,000 units PO 11/25/18 11/25/18 History [Vitamin D3] latanoprost [Xalatan] 1 drp OPB 11/25/18 11/25/18 History metformin [Glucophage] 1,000 mg PO BID 11/25/18 11/25/18 History prednisone 10 mg PO 11/25/18 11/25/18 History vitamin B complex 1 tab PO HS 11/25/18 11/25/18 History vitamin E 400 unit PO HS 11/25/18 11/25/18 History warfarin [Coumadin] 5 mg PO HS 11/25/18 11/25/18 History zinc 50 mg PO 3XWK 11/25/18 11/25/18 History Allergies Allergy/AdvReac Type Severity Reaction Status Date / Time chocolate flavor Allergy Unknown Verified 11/25/18 14:49 Past Med/Surg History Medical History History of sarcoidosis (Chronic) Factor V Leiden mutation (Chronic) Diabetes (Chronic) History of TIA (transient ischemic attack) (Resolved) HTN (hypertension) Family History Mother Diabetes Stroke Social History Feels Safe at Home: Yes Smoking Status: Never smoker Review of Systems See HPI for pertinent positives & negatives. and A total of 10 systems reviewed and were otherwise negative Physical Exam Vital Signs Vital Signs - 24 hr 11/25/18 13:33 11/25/18 14:27 11/25/18 16:15 Temperature 36.9 C Temperature Source Oral Sepsis Recent Fever Within 48 Hours No Sepsis New/Unexplained Change in Mental Status No Sepsis Action Taken by Nursing No Action Required Pulse Rate 81 Pulse Rate [Right Finger] 75 80 Respiratory Rate 18 18 18 Respiratory Effort / Characteristics Non-Labored Spontaneous Respiratory Depth Normal Normal Respiratory Pattern Regular Blood Pressure 165/78 H Blood Pressure [Right Arm] 150/80 H 151/82 H Blood Pressure Mean 107 Blood Pressure Mean [Right Arm] 103 105 Pulse Oximetry 99 98 95 Oxygen Delivery Method Room Air Room Air Room Air GENERAL: Well appearing, well nourished, NAD, non-toxic. EYE EXAM: Normal conjunctiva. PERRL, no anisocoria and EOM's grossly intact w/o pain. OROPHARYNX: No exudate, posterior pharynx is clear, no tonsillar/uvular deviation or swelling. NECK: Supple, no nuchal rigidity, no adenopathy, non-tender. No signs of meningismus. LUNGS: Clear to auscultation bilaterally. Normal chest wall mechanics. HEART: NSR, systolic ejection murmur. ABDOMEN: Abdomen soft, non-tender, normo-active bowel sounds, no masses, no rebound or guarding. BACK: No CVA TTP. SKIN: No rashes and no bruising. UPPER EXTREMITIES: Upper extremities are grossly normal. LOWER EXTREMITIES: No pitting edema. No calf pain NEURO EXAM: Cranial nerves II-XII grossly intact, normal speech, 5/5 strength in b/l upper and lower extremities, moves all 4 extremities without issue on command Course 1350: Past medical records reviewed. The patient was evaluated in room B10, and a complete history and physical examination were performed. 1410: I updated the patient and family on current results. 1606: I consulted Dr. Lainez [facility]. He will reevaluate the patient for hospitalization. Consultations Consultation #1: I consulted Dr. Lainez [facility] Hospitalist. He will reevaluate the patient for hospitalization. Time: 16:06 Administered Medications Ioversol (Optiray 320 100ml) 93 ml IV ONCE PRN PRN Reason: Interaction Checking Stop: 11/29/18 15:12 Last Admin: 11/25/18 15:14 Dose: 93 ml Discontinued Medications Aspirin (Aspirin Chew) 81 mg PO NOW STA Stop: 11/25/18 16:11 Last Admin: 11/25/18 16:14 Dose: 81 mg Medical Decision Making Medical Records Attestation: I reviewed the patient's medical records. Home Medications Current Medication List: was personally reviewed by me Laboratory Data Attestation: I reviewed the patient's lab results. Result diagrams: 11/25/18 14:10 11/25/18 14:10 Lab Results 11/25/18 11/25/18 11/25/18 Range/Units 14:10 14:10 14:10 WBC 7.87 (4.8-10.8) K/uL RBC 4.78 (4.2-5.4) M/uL Hgb 15.2 (12.0-16.0) g/dL Hct 44.3 (37-47) % MCV 92.7 (80-100) fL MCH 31.8 (25-34) pg MCHC 34.3 (32-36) g/dL RDW Std Deviation 43.5 (36.4-46.3) fL RDW Coeff of [place] 12.8 (11.5-14.5) % Plt Count 212 (130-400) K/uL MPV 8.9 (7.4-10.4) fL Immature Gran % (Auto) 0.3 % Neut % (Auto) 67.9 % Lymph % (Auto) 20.5 % [place] % (Auto) 9.4 % Eos % (Auto) 1.3 % Baso % (Auto) 0.6 % Immature Gran # (Auto) 0.02 (0.00-0.02) K/uL Neut # (Auto) 5.35 (1.4-6.5) K/uL Lymph # (Auto) 1.61 (1.2-3.4) K/uL [place] # (Auto) 0.74 H (0.11-0.59) K/uL Eos # (Auto) 0.10 (0-0.5) K/uL Baso # (Auto) 0.05 (0-0.2) K/uL PT 22.2 H (9.0-12.0) Seconds INR 2.3 H (0.9-1.1) APTT 35.4 H (21.0-31.0) Seconds PTT Ratio 1.4 Sodium 138 (136-145) mmol/L Potassium 3.7 (3.5-5.1) mmol/L Chloride 101 (98-107) mmol/L Carbon Dioxide 26 (21-32) mmol/L Anion Gap 11.0 (3-11) BUN 12 (7-18) mg/dl Creatinine 0.84 (0.6-1.2) mg/dl Est Cr Clr Drug Dosing 47.6 ml/min Est GFR ( Amer) 78.8 Est GFR (Non-Af Amer) 68.0 BUN/Creatinine Ratio 14.1 (10-20) Glucose 86 (70-99) mg/dl POC Glucose (70-99) Calcium 8.9 (8.5-10.1) mg/dl Magnesium 1.9 (1.8-2.4) mg/dl Total Bilirubin 1.4 H (0.2-1) mg/dl AST 16 (15-37) U/L ALT 24 (12-78) U/L Alkaline Phosphatase 76 (45-117) U/L Troponin I < 0.015 (0-0.045) ng/ml Total Protein 7.0 (6.4-8.2) gm/dl Albumin 3.6 (3.4-5.0) gm/dl Globulin 3.4 (2.5-4.0) gm/dl Albumin/Globulin Ratio 1.1 (0.9-2) Urine Color Urine Appearance (Clear) Urine pH (4.5-7.5) Ur Specific Roland (1.000-1.030) Urine Protein (Negative) Urine Glucose (UA) (Negative) Urine Ketones (Negative) Urine Blood (Negative) Urine Nitrite (Negative) Urine Bilirubin (Negative) Urine Urobilinogen (Negative) Ur Leukocyte Esterase (Negative) Urine WBC (Auto) (0-5) /hpf Urine RBC (Auto) (0-4) /hpf U Hyaline Cast (Auto) (0-5) /lpf U Epithel Cells (Auto) (0-5) /lpf Urine Bacteria (Auto) (Negative) 11/25/18 11/25/18 Range/Units 14:25 14:27 WBC (4.8-10.8) K/uL RBC (4.2-5.4) M/uL Hgb (12.0-16.0) g/dL Hct (37-47) % MCV (80-100) fL MCH (25-34) pg MCHC (32-36) g/dL RDW Std Deviation (36.4-46.3) fL RDW Coeff of Manjula (11.5-14.5) % Plt Count (130-400) K/uL MPV (7.4-10.4) fL Immature Gran % (Auto) % Neut % (Auto) % Lymph % (Auto) % [place] % (Auto) % Eos % (Auto) % Baso % (Auto) % Immature Gran # (Auto) (0.00-0.02) K/uL Neut # (Auto) (1.4-6.5) K/uL Lymph # (Auto) (1.2-3.4) K/uL [place] # (Auto) (0.11-0.59) K/uL Eos # (Auto) (0-0.5) K/uL Baso # (Auto) (0-0.2) K/uL PT (9.0-12.0) Seconds INR (0.9-1.1) APTT (21.0-31.0) Seconds PTT Ratio Sodium (136-145) mmol/L Potassium (3.5-5.1) mmol/L Chloride (98-107) mmol/L Carbon Dioxide (21-32) mmol/L Anion Gap (3-11) BUN (7-18) mg/dl Creatinine (0.6-1.2) mg/dl Est Cr Clr Drug Dosing ml/min Est GFR ( Amer) Est GFR (Non-Af Amer) BUN/Creatinine Ratio (10-20) Glucose (70-99) mg/dl POC Glucose 91 (70-99) Calcium (8.5-10.1) mg/dl Magnesium (1.8-2.4) mg/dl Total Bilirubin (0.2-1) mg/dl AST (15-37) U/L ALT (12-78) U/L Alkaline Phosphatase (45-117) U/L Troponin I (0-0.045) ng/ml Total Protein (6.4-8.2) gm/dl Albumin (3.4-5.0) gm/dl Globulin (2.5-4.0) gm/dl Albumin/Globulin Ratio (0.9-2) Urine Color Dark Yellow Urine Appearance Clear (Clear) Urine pH 5.5 (4.5-7.5) Ur Specific Roland 1.021 (1.000-1.030) Urine Protein Negative (Negative) Urine Glucose (UA) Negative (Negative) Urine Ketones Trace H (Negative) Urine Blood Negative (Negative) Urine Nitrite Negative (Negative) Urine Bilirubin Negative (Negative) Urine Urobilinogen Negative (Negative) Ur Leukocyte Esterase 2+ H (Negative) Urine WBC (Auto) 10-30 H (0-5) /hpf Urine RBC (Auto) 5-10 H (0-4) /hpf U Hyaline Cast (Auto) 1-5 (0-5) /lpf U Epithel Cells (Auto) 20-30 H (0-5) /lpf Urine Bacteria (Auto) Negative (Negative) Imaging Data Radiologist's Impression: Radiology results as stated below per my review and the radiologist's interpretation: HEAD CT NONCONTRAST CT DOSE: HISTORY: Stroke evaluation TECHNIQUE: Multiaxial CT images of the head were performed without the use of intravenous contrast. Automated exposure control was utilized for this study. A dose lowering technique was utilized adhering to the principles of ALARA. Comparison: None. Findings: The paranasal sinuses and mastoid air cells are clear. The calvarium and skull base are intact. The ventricles and sulci are within normal limits. There is no mass, hematoma, midline shift, or acute infarct. Impression: No acute intracranial abnormality. Electronically signed by: Werner Umaña M.D. 11/25/2018 3:22 PM HEAD & NECK CTA HISTORY: expressive aphasia, resolved TECHNIQUE: Multiaxial CT images of the head were performed following the intravenous administration of contrast to evaluate the major cerebral vessels. Multiaxial CT images of the neck were also performed following the intravenous administration of contrast to evaluate the major cervical vessels. Maximum intensity projection images were also obtained. A dose lowering technique was utilized adhering to the principles of ALARA. COMPARISON: None. FINDINGS: There is no mass, hematoma, midline shift, or acute infarct. Visualized intracranial internal carotid arteries, distal vertebral arteries, and basilar artery are widely patent. There is no significant stenosis, occlusion, or aneurysm seen within the bilateral ACAs, MCAs, or wafer slicer. Hypoplastic distal right vertebral artery. The aortic arch and proximal great vessels are widely patent. There is no significant stenosis, occlusion, or dissection identified within the bilateral common carotid, internal carotid, or vertebral arteries. Bilateral irregular airspace opacities within the visualized lungs persist. This favors scarring. No pneumothorax. There is a 2.6 cm substernal thyroid nodule. Slightly hypoplastic right vertebral artery. IMPRESSION: 1. No significant stenosis, occlusion, or aneurysm within the [place]. 2. No significant stenosis, occlusion, or dissection identified within the carotid or vertebral arteries. 3. A 2.6 cm substernal thyroid nodule. Electronically signed by: Werner Umaña M.D. 11/25/2018 3:28 PM HEAD & NECK CTA HISTORY: expressive aphasia, resolved TECHNIQUE: Multiaxial CT images of the head were performed following the intravenous administration of contrast to evaluate the major cerebral vessels. Multiaxial CT images of the neck were also performed following the intravenous administration of contrast to evaluate the major cervical vessels. Maximum intensity projection images were also obtained. A dose lowering technique was utilized adhering to the principles of ALARA. COMPARISON: None. FINDINGS: There is no mass, hematoma, midline shift, or acute infarct. Visualized intracranial internal carotid arteries, distal vertebral arteries, and basilar artery are widely patent. There is no significant stenosis, occlusion, or aneurysm seen within the bilateral ACAs, MCAs, or wafer slicer. Hypoplastic distal right vertebral artery. The aortic arch and proximal great vessels are widely patent. There is no significant stenosis, occlusion, or dissection identified within the bilateral common carotid, internal carotid, or vertebral arteries. Bilateral irregular airspace opacities within the visualized lungs persist. This favors scarring. No pneumothorax. There is a 2.6 cm substernal thyroid nodule. Slightly hypoplastic right vertebral artery. IMPRESSION: 1. No significant stenosis, occlusion, or aneurysm within the [place]. 2. No significant stenosis, occlusion, or dissection identified within the carotid or vertebral arteries. 3. A 2.6 cm substernal thyroid nodule. Electronically signed by: Werner Umaña M.D. 11/25/2018 3:28 PM ECG Data Attestation: I personally reviewed and interpreted this ECG as follows: Indication: other (speech difficulties) Rate (beats per minute): 72 Rhythm: normal sinus Findings: + other (normal intervals, normal axis) and + T-wave inversion (lead III) Comparison ECG Date: from (01/05/17) Change: the following changes noted (T-wave inversion is new, otherwise unchanged) Blood Pressure Blood Pressure Findings: Elevated blood pressure Blood Pressure Disposition: further management by hospitalist [facility] Narrative Prior records/ancillary studies reviewed. Triage nursing notes reviewed. The patient is a 73 year old white female with a history of diabetes, TIA, PE and Factor V Leiden who presents to the Emergency Room with complaints of currently resolved speech difficulties occurring one hour ago. Differential diagnosis: Etiologies such as metabolic, infection, hypo/hyperglycemia, electrolyte abnormalities, cardiac sources, intracerebral event, toxicologic, neurologic, as well as others were entertained. Patient was seen and evaluated the bedside. The patient did have some issues with an expressive type aphasia approximate 1 hour prior to arrival. Symptoms have resolved. Patient has a nonfocal neurologic exam and no sensory deficits and good finger to nose. Patient did a blood work completed and EKG along with CT of the head and CTAs of the head neck. Patient's blood work is unremarkable. Patient CT of the head is negative. CT of the head and neck does not show any evidence of aneurysm, stenosis, or dissection. The patient's INR is 2.3. It is therapeutic. Patient's urinalysis does not appear to be infected. Patient's ABCD 2 score for TIA is 5. This puts her at moderate risk. I did discuss case with hospitalist. She was given a baby aspirin and admitted to the medicine service. Impression & Plan TIA (transient ischemic attack), Expressive aphasia Discharge Plan Visit Data Chief Complaint: Confusion Stated Complaint: CONFUSED DOESNT SEEM RIGHT ED Provider: Salomón Mccallum Discharge Problem: TIA (transient ischemic attack), Expressive aphasia Patient Disposition: Being Evaluated by Hospitalist Forms Stand Alone Forms: My [facility] Prescriptions Prescriptions: No Action latanoprost [Xalatan] 0.005 % drops 1 drp OPB HS RF: 0 prednisone 10 mg tablet 10 mg PO HS RF: 0 atorvastatin [Lipitor] 20 mg tablet 20 mg PO HS RF: 0 calcium carbonate [Calcium 500] 500 mg calcium (1,250 mg) Tablet 500 mg PO HS RF: 0 ascorbic acid (vitamin C) 500 mg Tablet 500 mg PO HS RF: 0 metformin [Glucophage] 1,000 mg tablet 1,000 mg PO BID RF: 0 warfarin [Coumadin] 5 mg tablet 5 mg PO HS RF: 0 vitamin B complex Tablet 1 tab PO HS RF: 0 zinc 50 mg Tablet 50 mg PO 3XWK RF: 0 vitamin E 400 unit Capsule 400 unit PO HS RF: 0 cholecalciferol (vitamin D3) [Vitamin D3] 1,000 unit Capsule 1,000 units PO HS RF: 0 Referrals Referrals: Jessenia Dennis CRNP [Primary Care Provider] - The scribe's documentation has been prepared under my direction and personally reviewed by me in its entirety. I confirm that the note above accurately reflects all work, treatment, procedures, and medical decision making performed by me.
[2018-11-25] MEDS ORDERED: ACETAMINOPHEN 325 MG TAB PO PRN (17:26)
[2018-11-25] MEDS ORDERED: PHARMACIST DISCHARGE MED REC CONSULT PRN (17:26)
[2018-11-25] MEDS ORDERED: NON-FORMULARY MEDICATION (Zinc [Zinc] 50 MG) PO SCH (17:26)
[2018-11-25] MEDS ORDERED: DEXTROSE 50% 50 ML SYRINGE IV PRN (17:26)
[2018-11-25] MEDS ORDERED: CARBOHYDRATES FOR HYPOGLYCEMIA PO PRN (17:26)
[2018-11-25] MEDS ORDERED: GLUCAGON FOR INJ 1 MG VIAL SQ PRN (17:26)
[2018-11-25] MEDS ORDERED: GLUCOSE 10 TABS/TUBE PO PRN (17:26)
[2018-11-25] MEDS ORDERED: ONDANSETRON INJ 2 MG/ML 2 ML VIAL IV PRN (17:26)
[2018-11-25] MEDS ORDERED: GLUCOSE 40% GEL 15 GM TUBE PO PRN (17:26)
[2018-11-25] MEDS: INSULIN ASPART 100 UNITS/ML 3 ML PEN SC SCH ×2 (17:54→20:28)
[2018-11-25] MEDS ORDERED: METFORMIN HCL 500 MG TAB PO SCH ×2 (21:00)
[2018-11-25] MEDS ORDERED: CALCIUM CARBONATE 1250MG TAB PO SCH (21:00)
[2018-11-25] MEDS ORDERED: WARFARIN SOD 5 MG TAB PO SCH (21:00)
[2018-11-25] MEDS ORDERED: VITAMIN B COMPLEX TAB PO SCH (21:00)
[2018-11-25] MEDS ORDERED: LATANOPROST 0.005% OP SOLN 2.5 ML BTL OPB SCH (21:00)
[2018-11-25] MEDS ORDERED: CHOLECALCIFEROL 1,000 UNITS TAB PO SCH (21:00)
[2018-11-25] MEDS ORDERED: ASCORBIC ACID 500 MG TAB PO SCH (21:00)
[2018-11-25] MEDS ORDERED: predniSONE 10 MG TABLET PO SCH (21:00)
[2018-11-25] MEDS ORDERED: TOCOPHERYL, DL-ALPHA 400 UNITS CAP PO SCH (21:00)
[2018-11-26 05:45] LABS: Basophils # (auto) 0.06 K/uL (0-0.2); Basophils % (auto) 0.8 %; Eosinophils # (auto) 0.03 K/uL (0-0.5); Eosinophils % (auto) 0.4 %; Hematocrit (blood only) 43.7 % (37-47); Hemoglobin 15.2 g/dL (12.0-16.0); Immature Granulocytes # (auto) 0.03 K/uL (0.00-0.02); Immature Granulocytes % (auto) 0.4 %; Lymphocytes # (auto) 1.91 K/uL (1.2-3.4); Lymphocytes % (auto) 25.3 %; Mean Corpuscular Hgb Conc 34.8 g/dL (32-36); Mean Corpuscular Volume 92.4 fL (80-100); Monocytes # (auto) 0.36 K/uL (0.11-0.59); Monocytes % (auto) 4.8 %; Neutrophils # (auto) 5.17 K/uL (1.4-6.5); Neutrophils % (auto) 68.3 %; Platelet Count 216 K/uL (130-400); RDW Coefficient of Variation 12.8 % (11.5-14.5); RDW Standard Deviation 43.3 fL (36.4-46.3); Red Blood Count 4.73 M/uL (4.2-5.4); White Blood Count 7.56 K/uL (4.8-10.8)
[2018-11-26 05:56] LABS: Prothrombin Time 19.7 Seconds (9.0-12.0)
[2018-11-26 06:15] LABS: BUN Creatinine Ratio 20.3 (10-20); Calcium 8.6 mg/dl (8.5-10.1); Creatinine Clr Calc Pharmacy 78.5 ml/min; Est GFR (Non-African American) 94.1; Potassium 4.1 mmol/L (3.5-5.1)
--- NOTE | 2018-11-26 06:36 | Ultrasound Report ---
ULTRASOUND OF THE CAROTID ARTERIES CLINICAL HISTORY: transient confusion EXPRESSIVE APHASIA. COMPARISON STUDY: None. TECHNIQUE: Real-time, grayscale, and color Doppler sonography of the carotid arteries was performed. Imaging reviewed in the transverse and longitudinal planes. NASCET criteria was utilized for stenosis calcification. FINDINGS: There is minimal atherosclerotic plaque present . The peak systolic velocity within the right internal carotid artery is 55 cm/sec. The systolic velocity ratio of right internal to common carotid artery is 0.9. The peak systolic velocity within the left internal carotid artery is 67 cm/sec. The systolic velocity ratio left internal to common carotid artery is 1.0. Antegrade flow is seen in the vertebral arteries. The external carotid arteries are patent. Blood pressure in the right arm measured 136 mm/Hg. Blood pressure in the left arm measured 129 mm/H g. IMPRESSION: No evidence of hemodynamically significant carotid stenosis. Electronically signed by: Ayush Bain M.D. 11/26/2018 6:35 AM
[2018-11-26 06:58] LABS: Estimated Average Glucose 128 mg/dl
[2018-11-26] MEDS: INSULIN ASPART 100 UNITS/ML 3 ML PEN SC SCH ×2 (07:42→12:06)
--- NOTE | 2018-11-26 07:48 | Magnetic Resonance Report ---
MR brain wo con CLINICAL HISTORY: 73 years-old Female presenting with transient confusion, unable to speak for 5 or 1 0 minutes. TECHNIQUE: Multisequence, multiplanar MR imaging of the brain was performed without the use of intrav enous contrast. IV contrast: None. COMPARISON: Noncontrast CT head from 11/25/2018. FINDINGS: Localizer images: Unremarkable. 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 Ventricl es and sulci otherwise normal in size. Few foci of T2/FLAIR hyperintensity in the periventricular and subcortical white matter likely age-related change. Brain parenchyma otherwise normal in appearance with preserved encinas-white differentiation. Postcontrast imaging was not performed. No mass effect or midline shift. No restricted diffusion to suggest acute ischemia. No hemorrhage. No extra-axial fluid collection. T2 skull base flow voids preserved. Bone marrow signal intensity within the calvarium within normal l imits. IMPRESSION: 1. No acute intracranial abnormality. Electronically signed by: Remi Goldberg M.D. 11/26/2018 7:47 AM
[2018-11-26] MEDS ORDERED: ASPIRIN 81 MG ECTAB PO SCH (09:00)
[2018-11-26] MEDS ORDERED: ATORVASTATIN 40 MG TAB PO SCH (09:00)
--- NOTE | 2018-11-26 10:53 | Neurology Consultation ---
Date of Consultation November 26, 2018 Assessment & Plan (1) TIA (transient ischemic attack): This is a 73-year-old female who presents with a 5-10-minute episode of expressive aphasia with no other focal neurological deficits. Differential diagnosis includes TIA versus focal seizure. Stroke risk factors include diabetes, dyslipidemia, obstructive sleep apnea not on CPAP, hypertension, and factor V Leiden. No residual neurological deficits. Recommendations: At this time we will treat the patient is though she was a possible TIA. I am suspicious that this could have been a focal seizure, but only time will tell if this turns out to be the case, as typically focal seizures will recur and be stereotypical. I ordered an EEG for this morning to evaluate for possible seizure etiology. EEG was normal with the exception of some mild intermittent left frontotemporal slowing (which unfortunately is nonspecific and can be seen both in focal seizures and ischemic events, but is more concerning for focal seizure). Follow-up echocardiogram results to rule out cardioembolic sources for TIA or stroke Highly recommended to the patient that she follows up with outpatient sleep study evaluation to see if she still has obstructive sleep apnea after weight loss as her primary care has recommended previously. Discussed that if she still has obstructive sleep apnea and is not treated, this is a minor cardiac and stroke risk factor. Continue anticoagulation for factor V Leiden. Discussed with patient and family that I did not feel strongly about adding on a baby aspirin, since I am not completely sure this was a TIA and could increase her bleeding risk. If desired, at most, I would recommend aspirin 81 mg 3 times a week. Cautioned about increased bleeding and bruising. Went over stroke risk factors with the patient and family, and her other vascular risk factors appear to be under good control at this time. Discussed that if she has any new strokelike symptoms such as weakness on one side of the body, numbness on one side of the body, inability to walk or see, these would all be reasons to call 911 for stroke evaluation. If she has stereotypical events of speech loss that resolve within 15 minutes with no other neurological symptoms, could reasonably call the neurology clinic and at that time we may consider starting antiepileptic medications. Stroke risk factor modifications and recommendations: Blood pressure recommendations for the first month post hospital discharge 150/ 90-130/80, and after that blood pressure recommendations 130/80-110/70 Total cholesterol goal 100- 200 and LDL goal less than 70 (at goal) Hemoglobin A1c goal less than 7 (at goal) Encourage cardiovascular exercise at least 3 times a week for 30 minutes. Follow-up in neurology clinic in 1 month for hospital follow-up. If there is any questions or concerns, feel free to call/page me. History of Present Illness Reason for Consultation: Consultation for strokelike episode Attending Physician: Nalini Sharma History of Present Illness This is a 73-year-old female who presents with strokelike episode. History is taken from patient, daughter, and . Reportedly had 5-10 minutes of what is described as expressive aphasia. Reports that she can get her words out. Reports that she knew what she wanted to say but could not say it. Denies any confusion. Daughter confirms that she did not really seem to be confused other than not being able to get her words out. Afterwards did not seem to have any significant confusion. Denies any focal numbness or weakness. No loss of vision. No abnormal headaches. No trouble swallowing. No facial symptoms or facial droop. Has never had anything like this previously. Nothing concerning for seizures in the past. Patient does report an episode when she was in her 30s of losing vision. Describes it as a pack man orb of light in her vision. She did have a history of migraine headaches at that time and likely had a migraine aura. Otherwise no history of strokelike symptoms. Does report having PE after surgery. Also has factor V Leiden and is on chronic anticoagulation with Coumadin. Reports that her INR is typically fairly stable and only occasionally goes to 1.8 or 1.9. Total cholesterol 157, LDL 67, HDL 68, triglycerides 111, hemoglobin A1c 6.1 CTA of the head and neck was unremarkable MRI of her brain appears normal. There is no signs of recent or past ischemic damage. Past medical history: Diabetes, dyslipidemia, factor V Leiden on Coumadin, history of PE, sarcoidosis, hypertension, obstructive sleep apnea currently not wearing CPAP due to 40 pound weight loss, Family history: Mother with diabetes and stroke. Cancer and CAD within the family Social history: Normally independent her activities of daily living. No tobacco use. Allergies Allergy/AdvReac Type Severity Reaction Status Date / Time chocolate flavor Allergy Unknown Verified 11/25/18 14:49 Home Medications Home Medications Medication Instructions Recorded Confirmed Type ascorbic acid (vitamin C) 500 mg PO HS 11/25/18 11/25/18 History atorvastatin [Lipitor] 20 mg PO HS 11/25/18 11/25/18 History calcium carbonate [Calcium 500] 500 mg PO HS 11/25/18 11/25/18 History cholecalciferol (vitamin D3) 1,000 units PO HS 11/25/18 11/25/18 History [Vitamin D3] latanoprost [Xalatan] 1 drp OPB HS 11/25/18 11/25/18 History metformin [Glucophage] 1,000 mg PO BID 11/25/18 11/25/18 History prednisone 10 mg PO HS 11/25/18 11/25/18 History vitamin B complex 1 tab PO HS 11/25/18 11/25/18 History vitamin E 400 unit PO HS 11/25/18 11/25/18 History warfarin [Coumadin] 5 mg PO HS 11/25/18 11/25/18 History zinc 50 mg PO 3XWK 11/25/18 11/25/18 History Patient History Medical History History of sarcoidosis (Chronic) Factor V Leiden mutation (Chronic) Diabetes (Chronic) History of TIA (transient ischemic attack) (Resolved) HTN (hypertension) Family History Mother Diabetes Stroke Social History Current Living Situation: Family Other Information That Helps Us Care for You: No Feels Safe at Home: Yes Smoking Status: Never smoker Hx Alcohol Use: No Hx Substance Use: No Beliefs That Will Affect Care: None Preferred Language: Romanian Communication Ability: Effective [employer] Supervisor Required: No Review of Systems Complete review of systems otherwise negative except for the above-noted in HPI Physical Exam 2 Vital Signs (Past 24 Hours): Last Vital Signs Temp 36.9 C 11/26/18 06:34 Pulse 70 11/26/18 08:00 Resp 18 11/26/18 06:34 BP 141/78 H 11/26/18 06:34 Pulse Ox 97 11/26/18 06:34 Physical Exam: Gen.: Patient is alert and oriented in no acute distress lying in bed Heart: Regular rate and rhythm Extremities: No gross deformities or rashes noted Neurological examination: Mental status: Patient is alert and oriented to person place and time. Able to give his own history. Attention concentration normal for the situation. Remote and recent memory intact Speech is fluent without any dysarthria or aphasia noted Cranial nerves: Visual feilds intact. Funduscopic examination was difficult to visualize. Pupils equally round and reactive to light. Extraocular muscles intact without nystagmus. No facial asymmetry noted. Facial sensation intact. Tongue midline. Good palatal elevation. Good shoulder shrug bilaterally. Hearing grossly intact voice. Strength: 5/5 both proximal and distal in all extremities .Tone is normal. Sensation: Grossly intact to light touch in all extremities Deep tendon reflexes: +1 in bilateral biceps and patellar. Toes are equivocal to plantar stimulation bilaterally Coordination: Patient has good finger to nose without dysmetria. Station within the bed is normal.
--- NOTE | 2018-11-26 10:59 | Procedure Note ---
EEG Procedure Note Date of Service November 26, 2018 Start / End Times Start Time: 9:05 AM End Time: 9:25 AM Referring Physician Daphne Teixeira History This is a 73-year-old female who presents with 5-10 minutes of expressive aphasia. EEG for further evaluation of possible seizure etiology. Home Medication List Home Medications Medication Instructions Recorded Confirmed Type ascorbic acid (vitamin C) 500 mg PO 11/25/18 11/25/18 History atorvastatin [Lipitor] 20 mg PO 11/25/18 11/25/18 History calcium carbonate [Calcium 500] 500 mg PO 11/25/18 11/25/18 History cholecalciferol (vitamin D3) 1,000 units PO HS 11/25/18 11/25/18 History [Vitamin D3] latanoprost [Xalatan] 1 drp OPB 11/25/18 11/25/18 History metformin [Glucophage] 1,000 mg PO BID 11/25/18 11/25/18 History prednisone 10 mg PO 11/25/18 11/25/18 History vitamin B complex 1 tab PO 11/25/18 11/25/18 History vitamin E 400 unit PO 11/25/18 11/25/18 History warfarin [Coumadin] 5 mg PO HS 11/25/18 11/25/18 History zinc 50 mg PO 3XWK 11/25/18 11/25/18 History Inpatient Medication List Ascorbic Acid (Vitamin C) 500 mg PO [facility] Stop: 12/25/18 20:59 Last Admin: 11/25/18 20:27 Dose: Not Given Aspirin (Ecotrin Ectab) 81 mg PO [facility] Stop: 12/26/18 08:59 Last Admin: 11/26/18 07:43 Dose: 81 mg Atorvastatin [facility]) [facility] Stop: 12/26/18 08:59 Last Admin: 11/25/18 20:54 Dose: 40 mg Calcium Carbonate (Os-Tristen 500) 1,250 mg PO [facility] Stop: 12/25/18 20:59 Last Admin: 11/25/18 20:26 Dose: Not Given Insulin Aspart (Novolog Flexpen) 0 units SC [facility] Stop: 12/25/18 17:25 Last Admin: 11/26/18 07:42 Dose: Not Given Admin: 11/25/18 20:28 Dose: Not Given Admin: 11/25/18 17:54 Dose: Not Given Ioversol (Optiray 320 100ml) 93 ml IV ONCE PRN PRN Reason: Interaction Checking Stop: 11/29/18 15:12 Last Admin: 11/25/18 15:14 Dose: 93 ml Latanoprost (Xalatan Oph) 1 drops OPB HS [facility] Stop: 12/25/18 20:59 Last Admin: 11/25/18 20:38 Dose: 1 drops Prednisone (Prednisone) 10 mg PO HS [facility] Stop: 12/25/18 20:59 Last Admin: 11/25/18 20:39 Dose: 10 mg Vitamin B Complex (Vitamin B Complex) 1 tab PO HS [facility] Stop: 12/25/18 20:59 Last Admin: 11/25/18 20:27 Dose: Not Given Vitamin D (Vitamin D3) 1,000 units PO HS [facility] Stop: 12/25/18 20:59 Last Admin: 11/25/18 20:27 Dose: Not Given Vitamin E (Vitamin E) 400 units PO HS [facility] Stop: 12/25/18 20:59 Last Admin: 11/25/18 20:27 Dose: Not Given Warfarin Sodium (Coumadin) 5 mg PO HS [facility]UL Stop: 12/25/18 20:59 Last Admin: 11/25/18 20:39 Dose: 5 mg Discontinued Medications Aspirin (Aspirin Chew) 81 mg PO NOW STA Stop: 11/25/18 16:11 Last Admin: 11/25/18 16:14 Dose: 81 mg Description This is a 21 electrode EEG with a single channel dedicated to limited EKG. The electrodes were placed in accordance with the International 10-20 system. At the start of the recording the patient was in an awake state. Background was well organized and composed of symmetric mixed alpha and beta frequencies. There was a symmetric well-formed moderate amplitude 9-10 Hz posterior dominant rhythm that was reactive to eye opening and closure. Hyperventilation was not done. Intermittent photic stimulation at various frequencies produced no abnormalities. There was no state changes or sleep transients There was intermittent mild focal theta slowing over the left frontotemporal area. Interpretation This is an abnormal routine EEG secondary to intermittent mild focal slowing over the left frontotemporal area. There was no electrographic seizures or epileptiform discharges. Clinical Correlation This EEG indicates functional or structural cerebral dysfunction in the left frontotemporal area. Intermittent focal slowing is nonspecific, but is more likely to be seen with focal seizures, as opposed to ischemia or structural lesions.
--- NOTE | 2018-11-26 13:21 | Discharge Summary ---
Date of Service November 26, 2018 Admission HPI Per Admitting Provider Patient is a 73-year-old relatively healthy female with a history of factor V Leiden and sarcoidosis which is been in remission who had a 15-minute episode of inability to speak word searching at home. She is in the presence of her family when she was sort of leaning to the side with a puzzled look on her face and can communicate with them for about 15 minutes. The patient typically only takes metformin for her diabetes and her diabetes is of recent onset after she had influenza. Her blood sugar this morning was in the 90s and it currently was 86 on presentation. Complete resolution of her symptoms here in the ER she had a negative head CT CTA of head and neck which was unremarkable the exception of a thyroid nodule commented on, her EKG shows sinus rhythm with right bundle branch block To be brought in for observation as she had an ABC D2 score suggestive that she should be observed Principal Diagnosis Transient confusion, possible TIA Discharge Exam Constitutional WD/WN, vitals as above + well hydrated, average body habitus, healthy appearing and cooperative Eyes PERRL, conjunctivae normal, anicteric sclerae ENMT external ear and nose normal, oropharynx normal Neck trachea midline, no thyromegaly normal visual inspection Respiratory normal respiratory effort, lungs clear to auscultation Cardiovascular Rate/Rhythm: regular rate and regular rhythm Heart Sounds: + murmur (holosystolic) Vessels: dorsalis pedis pulses present Extremities: no pedal edema Gastrointestinal (Abdomen) normal bowel sounds, soft, nontender, no hepatosplenomegaly Musculoskeletal no cyanosis or clubbing, extremities motor strength 5/5 Skin no rashes, warm and dry Neurologic PERRL, EOMI, accommodation nl, no face palsy, no dysarthria CN's II-XI intact bilaterally; no focal motor deficits Cranial Nerves: sense of smell intact Psychiatric A+Ox3, euthymic affect Thought Process: clear/coherent thought process Discharge Data Allergies Allergy/AdvReac Type Severity Reaction Status Date / Time chocolate flavor Allergy Unknown Verified 11/25/18 14:49 Consultations 11/25/18 16:10 ED Decision to Admit Stat 11/25/18 17:26 Consult Case Management - Discharge Planning Routine Consult Neurology Routine Ordered Studies 11/25/18 13:57 CT angio head w con Stat CT angio neck with con Stat HEAD & NECK CTA HISTORY: expressive aphasia, resolved TECHNIQUE: Multiaxial CT images of the head were performed following the intravenous administration of contrast to evaluate the major cerebral vessels. Multiaxial CT images of the neck were also performed following the intravenous administration of contrast to evaluate the major cervical vessels. Maximum intensity projection images were also obtained. A dose lowering technique was utilized adhering to the principles of ALARA. COMPARISON: None. FINDINGS: There is no mass, hematoma, midline shift, or acute infarct. Visualized intracranial internal carotid arteries, distal vertebral arteries, and basilar artery are widely patent. There is no significant stenosis, occlusion, or aneurysm seen within the bilateral ACAs, MCAs, or spooler rubber strand. Hypoplastic distal right vertebral artery. The aortic arch and proximal great vessels are widely patent. There is no significant stenosis, occlusion, or dissection identified within the bilateral common carotid, internal carotid, or vertebral arteries. Bilateral irregular airspace opacities within the visualized lungs persist. This favors scarring. No pneumothorax. There is a 2.6 cm substernal thyroid nodule. Slightly hypoplastic right vertebral artery. IMPRESSION: 1. No significant stenosis, occlusion, or aneurysm within the [place] of [place]. 2. No significant stenosis, occlusion, or dissection identified within the carotid or vertebral arteries. 3. A 2.6 [address] sub[address]ernal thyroid nodule. CT head/brain wo con Stat HEAD CT NONCONTRAST CT DOSE: HISTORY: Stroke evaluation TECHNIQUE: Multiaxial CT images of the head were performed without the use of intravenous contrast. Automated exposure control was utilized for this study. A dose lowering technique was utilized adhering to the principles of ALARA. Comparison: None. Findings: The paranasal sinuses and mastoid air cells are clear. The calvarium and skull base are intact. The ventricles and sulci are within normal limits. There is no mass, hematoma, midline shift, or acute infarct. Impression: No acute intracranial abnormality. 11/25/18 17:26 MR brain wo con Routine MR brain wo con CLINICAL HISTORY: 73 years-old Female presenting with transient confusion, unable to speak for 5 or 10 minutes. TECHNIQUE: Multisequence, multiplanar MR imaging of the brain was performed without the use of intravenous contrast. IV contrast: None. COMPARISON: Noncontrast CT head from 11/25/2018. FINDINGS: Localizer images: Unremarkable. 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 Ventricles and sulci otherwise normal in size. Few foci of T2/ FLAIR hyperintensity in the periventricular and subcortical white matter likely age-related change. Brain parenchyma otherwise normal in appearance with preserved encinas-white differentiation. Postcontrast imaging was not performed. No mass effect or midline shift. No restricted diffusion to suggest acute ischemia. No hemorrhage. No extra-axial fluid collection. T2 skull base flow voids preserved. Bone marrow signal intensity within the calvarium within normal limits. IMPRESSION: 1. No acute intracranial abnormality. US carotid doppler BI Routine ULTRASOUND OF THE CAROTID ARTERIES CLINICAL HISTORY: transient confusion EXPRESSIVE APHASIA. COMPARISON STUDY: None. TECHNIQUE: Real-time, grayscale, and color Doppler sonography of the carotid arteries was performed. Imaging reviewed in the transverse and longitudinal planes. NASCET criteria was utilized for stenosis calcification. FINDINGS: There is minimal atherosclerotic plaque present . The peak systolic velocity within the right internal carotid artery is 55 cm/ sec. The systolic velocity ratio of right internal to common carotid artery is 0.9. The peak systolic velocity within the left internal carotid artery is 67 cm/sec. The systolic velocity ratio left internal to common carotid artery is 1.0. Antegrade flow is seen in the vertebral arteries. The external carotid arteries are patent. Blood pressure in the right arm measured 136 mm/Hg. Blood pressure in the left arm measured 129 mm/Hg. IMPRESSION: No evidence of hemodynamically significant carotid stenosis. Hospital Course (1) TIA (transient ischemic attack): 73-year-old female presented with a 15-minute episode of expressive aphasia with no other focal neurological deficits. Differential diagnosis includes TIA versus focal seizure. Stroke risk factors include diabetes, dyslipidemia, obstructive sleep apnea not on CPAP, hypertension, and factor V Leiden. No residual neurological deficits. (1) Episode of word finding - Possible TIA/seizure Patient 50-minute transient episode of word searching or word finding issues. All imaging is unremarkable. Echo unremarkable EF 60-65%, mild , Grade I Diastolic Dysfunction. Neurology consulted: some suspicious for possible focal seizure, but only time will tell if this turns out to be the case, as typically focal seizures will recur and be stereotypical. EEG normal with exception of some mild intermittent left frontotemporal slowing (which is nonspecific and can be seen both in focal seizures and ischemic events, but is more concerning for focal seizure). If she has stereotypical events of speech loss that resolve within 15 minutes with no other neurological symptoms, could reasonably call the neurology clinic and at that time we may consider starting antiepileptic medications. Recommended the patient f/u with OP sleep study evaluation to see if she still has CHALO after weight loss as PCP has recommended previously. Discussed that if she still has obstructive sleep apnea and is not treated, this is a minor cardiac and stroke risk factor. Recommendations: Stroke risk factor modifications and recommendations: Blood pressure recommendations for the first month post hospital discharge 150/ 90-130/80, and after that blood pressure recommendations 130/80-110/70 Total cholesterol goal 100- 200 and LDL goal less than 70 (at goal) Hemoglobin A1c goal less than 7 (at goal) Encourage cardiovascular exercise at least 3 times a week for 30 minutes. Added aspirin 81mgs to take 3 times a wk. Follow-up in neurology clinic in 1 month for hospital follow-up. Follow up with PCP within 1 week (2) Diabetes: Continue home meds (3) Factor V Leiden mutation: Patient is therapeutic with her INR Coumadin will be continued. Discussed that team did not feel strongly about adding baby aspirin, since we are not completely sure this was a TIA and could increase her bleeding risk. If desired, at most, would recommend aspirin 81 mg 3 times a week. Cautioned about increased bleeding and bruising. (4) Adrenal suppression: Patient is on chronic prednisone use for history of sarcoidosis she is not exhibiting any signs and symptoms of adrenal insufficiency. Total Time Total Time Spent Total Time Spent (In Minutes): >30 Discharge Plan Discharge Items Patient Disposition: Home - Self-Care Reason For Visit: TRANSIENT CONFUSION POSSIBLE TIA Discharge Diagnosis: Possible TIA Discharge Goals: Improve disease control Activity: Resume your previous activity Non-emergency contact: Primary Care Provider Call non-emergency contact if: you have any medication questions Follow-up/Referrals: Jessenia Dennis CRNP [Primary Care Provider] - 11/30/18 10:30 am (Please, follow up at [facility] with Jessenia MARKHAM on MondayNovember 30 at 10:30 am. *If you need to change this appointment, call the office at [phone]. ) Daphne Teixeira DO [Physician] - 12/26/18 11:20 am (Please, follow up at [facility] Neurology Office with Dr. Daphne Teixeira on MondayDecember 26 at 11:40 am (arrive 11:20 am). *This office is located at [facility] in [place]. If you need to change this appointment, call the office at [phone].) Diet: Carb Consistent or DM2 and Heart Healthy Addtl Provider Instructions: On discharge, we recommend the following: - Take aspirin 3 days per week (Mon, Wed, Fri) - Take increased dose of atorvastatin to 40mg daily - Follow up with family physician in a week >> Follow up on echo report >> Strong recommendations for referral for outpatient sleep study to determine if obstructive sleep apnea is ongoing given weight loss and to determine need for CPAP - Follow up with neurology in 1 month - Please call her office to arrange appointment Seek medical care urgently ([phone]) if any new stroke-like symptoms appear, such as weakness on one side of the body, numbness on one side of the body, inability to walk or see, for stroke evaluation. For stereotypical events of speech loss that resolve within 15 minutes with no other new/concerning symptoms, call the neurology clinic. Continue all other medications as before. Prescriptions: New atorvastatin 40 mg Tablet 40 mg PO QAM Qty: 30 RF: 0 aspirin [Ecotrin Low Strength] 81 mg Tablet,Delayed Release (Dr/Ec) 81 mg PO DIRECTED Qty: 1 RF: 0 Continue latanoprost [Xalatan] 0.005 % drops 1 drp OPB HS RF: 0 prednisone 10 mg tablet 10 mg PO HS RF: 0 calcium carbonate [Calcium 500] 500 mg calcium (1,250 mg) Tablet 500 mg PO HS RF: 0 ascorbic acid (vitamin C) 500 mg Tablet 500 mg PO HS RF: 0 metformin [Glucophage] 1,000 mg tablet 1,000 mg PO BID RF: 0 warfarin [Coumadin] 5 mg tablet 5 mg PO HS RF: 0 vitamin B complex Tablet 1 tab PO HS RF: 0 zinc 50 mg Tablet 50 mg PO 3XWK RF: 0 vitamin E 400 unit Capsule 400 unit PO HS RF: 0 cholecalciferol (vitamin D3) [Vitamin D3] 1,000 unit Capsule 1,000 units PO HS RF: 0 Discontinued atorvastatin [Lipitor] 20 mg tablet 20 mg PO HS RF: 0 Stand-Alone Forms: Medications to Prevent Stroke, [facility] Discharge Orders: Discharge Order (Routine); Ordered 11/26/18 Ordered By: Beverly Rivera Admission Data Admit Date/Time: 11/25/18 16:18 Attending Provider: Nalini Sharma Admit Provider: Yrn Lainez Primary Care Provider: Jessenia Dennis Other Providers: Yrn Lainez ; Adarsh Howell III Service: Telemetry Other Interventions: Discharge Summary Assessment (RN) Last Done: 11/26/18 12:42 Pending Studies at Discharge: Yes Studies:: Echo DC Date/Time DO NOT enter until pt leaves facility: 11/26/18 13:40 Supervising Physician Co-Signing Physician Notes Resident Physician Supervision Note: I independently interviewed and examined the patient and verified the padilla history and physical, reviewed labs and image studies, discussed the case with the resident Dr. Campos and agree with the findings and care plan. Time spent in discharge 40min Resident Activity Tracking Resident Involvement: Resident Care Provided Care Provided: Adult Hospital Medicine
[2018-11-26] MEDS ORDERED: STROKE PATIENT DISCHARGE STA (13:29)
--- NOTE | 2018-11-26 13:48 | Pharmacy Report ---
Pharmacist Stroke Counseling - Date of Service November 26, 2018 - Scope: Pharmacy has been consulted to provide medication discharge counseling for this patient admitted with transient ischemic attack as per the Pharmacist Discharge Counseling for Stroke Patients Protocol. - Medications on Discharge: Home Medications Medication Instructions Recorded Confirmed ascorbic acid (vitamin C) 500 mg PO HS 11/25/18 11/25/18 calcium carbonate [Calcium 500] 500 mg PO HS 11/25/18 11/25/18 cholecalciferol (vitamin D3) 1,000 units PO HS 11/25/18 11/25/18 [Vitamin D3] latanoprost [Xalatan] 1 drp OPB HS 11/25/18 11/25/18 metformin [Glucophage] 1,000 mg PO BID 11/25/18 11/25/18 prednisone 10 mg PO HS 11/25/18 11/25/18 vitamin B complex 1 tab PO HS 11/25/18 11/25/18 vitamin E 400 unit PO HS 11/25/18 11/25/18 warfarin [Coumadin] 5 mg PO HS 11/25/18 11/25/18 zinc 50 mg PO 3XWK 11/25/18 11/25/18 New Rx's Medication Instructions Recorded aspirin [Ecotrin Low Strength] 81 mg PO DIRECTED #1 tab 11/26/18 atorvastatin 40 mg PO QAM #30 tab 11/26/18 - Action: The above medications, specifically ones for stroke treatment/prophylaxis, have been reviewed in detail with the patient and/or patient sales representative malt liquors(s) prior to discharge. This includes indication, common adverse reactions, drug interactions, and medication administration. Medication counseling has been employed using the teach-back method to ensure understanding. - Outcome: The patient and/or patient sales representative malt liquors(s) have demonstrated understanding of the medications. Please note, they are aware that the pharmacist will call them within 72 hours post-discharge to confirm that the appropriate medications are being taken and answer any further medication related questions the patient might have at that time. Contact information Individual to be contacted: Katherine Navarro Relationship to patient (if applicable): N/A Phone number: [phone] Thank you for allowing pharmacy to be involved in the care of this patient. Please call [phone] or [phone] with any additional questions - Discharge Information: Pharmacists Notes:: Patient with dose increase for atorvastatin, already knowledgeable about the medication, side effects, ect. Patient placed on aspirin three times a week. This is in addition to ongoing warfarin therapy.
--- NOTE | 2018-11-29 14:56 | Pharmacy Report ---
Pharmacist Post D/C Phone Note - Phone Note: Date of phone call: November 29, 2018. Individual with whom pharmacist spoke to: GARRY BLEVINS The following questions were reviewed during the phone call with responses listed below each: Can you tell me the medications that you are currently taking as well as when and how you take each medication? -See Table Below - Patient able to tell me her new medications. Refused to review her older medications. States she knows what she is doing and does not need help. When have you missed any doses of your medications? - denies any missed doses at this time What side effects are you having from your medications, specifically, the new medications you were started on? -states she is feeling well and does not report any symptoms What questions do you have about your medications? - Asked about what time of day she should be taking her atorvastatin - told her that she can take it either in the morning or at night time. What problems are you having obtaining your medications? - none When is your next appointment with your primary care doctor? - tomorrow - told her to bring a list of her updated medication list. She told me she is not going to because her doctor will know the changes. Stressed to her that a lot of computer systems do not talk with one another and that it is best to bring list with her. Additional comments: - Patient a little confused as to why I was bothering her. Some resistance to answering questions regarding medications. Told me that she knew what she was doing and did not need me to review her medications with her. Also states that she is not going for her neurologist visit because she is feeling better. Advised her against doing this and reinforced the need to keep her appt. She will be following up with her PCP tomorrow. No other questions from the patient. As per the Pharmacist Discharge Counseling for Stroke Patients Protocol, this phone call has been completed within 72 hours of discharge. Thank you for allowing us to be involved in the care of this patient. - Home Medications: Home Medications Medication Instructions Recorded Confirmed ascorbic acid (vitamin C) 500 mg PO HS 11/25/18 11/25/18 calcium carbonate [Calcium 500] 500 mg PO HS 11/25/18 11/25/18 cholecalciferol (vitamin D3) 1,000 units PO HS 11/25/18 11/25/18 [Vitamin D3] latanoprost [Xalatan] 1 drp OPB HS 11/25/18 11/25/18 metformin [Glucophage] 1,000 mg PO BID 11/25/18 11/25/18 prednisone 10 mg PO HS 11/25/18 11/25/18 vitamin B complex 1 tab PO HS 11/25/18 11/25/18 vitamin E 400 unit PO HS 11/25/18 11/25/18 warfarin [Coumadin] 5 mg PO HS 11/25/18 11/25/18 zinc 50 mg PO 3XWK 11/25/18 11/25/18 New Rx's Medication Instructions Recorded aspirin [Ecotrin Low Strength] 81 mg PO DIRECTED #1 tab 11/26/18 atorvastatin 40 mg PO QAM #30 tab 11/26/18
--- NOTE | 2018-12-14 13:40 | Coding Query ---
CODING CLARIFICATION: To promote full compliance with coding requirements relating to patient care, physician participation is requested in all cases of wine fermenter uncertainty. Please assist us with providing a diagnosis/symptom for the test(s) below: Please provide clarification below regarding the presence of the TIA during this admission: Please remember that we are unable to code a diagnosis of rule out, probable, possible, questionable, or suspected. (x ) TIA was present during this admission ( ) TIA was ruled out during this admission ( ) Other, please clarify: Thank you for your assistance, Pari Castillo - Test Engineer NEIL
== END 2018-11-26 13:40 | disposition home or self-care (01) ==
LOC: 2E 13:31 → ED 13:31 → SUATTDRO 16:18 → 2E 16:58

== ENCOUNTER 2021-12-06 01:48 | Observation (INO) ==
[2021-12-06 03:08] LABS: Hematocrit (blood only) 20.2 % (37-47); Hemoglobin 6.5 g/dL (12.0-16.0); Mean Corpuscular Hemoglobin 27.8 pg (25-34); Mean Corpuscular Hgb Conc 32.2 g/dL (32-36); Mean Corpuscular Volume 86.3 fL (80-100); Mean Platelet Volume 8.8 fL (7.4-10.4); Platelet Count 198 K/uL (130-400); RDW Coefficient of Variation 15.2 % (11.5-14.5); RDW Standard Deviation 47.1 fL (36.4-46.3); Red Blood Count 2.34 M/uL (4.2-5.4); White Blood Count 10.12 K/uL (4.8-10.8)
[2021-12-06] MEDS ORDERED: SODIUM CHLORIDE 0.9% 250 ML IV PRN (03:09)
[2021-12-06 03:17] LABS: Troponin I 0.03 ng/ml (0-0.04)
[2021-12-06 03:22] LABS: Alanine Aminotransferase 18 U/L (7-52); Albumin Level 3.6 gm/dl (3.4-5.0); Alkaline Phosphatase 38 U/L (34-104); Anion Gap 8 (3-11); Aspartate Aminotransferase 23 U/L (13-39); Bilirubin,Total 0.8 mg/dl (0.2-1.0); Blood Urea Nitrogen 26 mg/dl (6-23); Calcium 8.3 mg/dl (8.5-10.1); Carbon Dioxide 23 mmol/L (21-32); Chloride 100 mmol/L (98-107); Est GFR (African American) 107.4 ml/min; Est GFR (Non-African American) 92.7 ml/min; Globulin 1.8 gm/dl (2.5-4.0); Glucose 88 mg/dl (70-99(Fasting)); Potassium 4.2 mmol/L (3.5-5.1); Sodium 131 mmol/L (136-145); Total Protein 5.4 gm/dl (6.0-8.3)
[2021-12-06 03:23] LABS: Partial Thromboplastin Ratio 1.7; Prothrombin Time 61.3 Seconds (9.0-12.0)
[2021-12-06 03:24] LABS: Eosinophils # (auto) 0.04 K/uL (0-0.5); Eosinophils % (auto) 0.4 %; Immature Granulocytes # (auto) 0.05 K/uL (0.00-0.02); Immature Granulocytes % (auto) 0.5 %; Lymphocytes # (auto) 1.31 K/uL (1.2-3.4); Lymphocytes % (auto) 12.9 %; Monocytes # (auto) 0.84 K/uL (0.11-0.59); Monocytes % (auto) 8.3 %; Neutrophils # (auto) 7.78 K/uL (1.4-6.5); Neutrophils % (auto) 76.9 %; Polychromasia 1+
--- NOTE | 2021-12-06 03:41 | Emergency Department Note ---
Impression & Plan GI (gastrointestinal bleed), Anemia, Supratherapeutic INR Admit to the [facility] ED Provider Note NAME: GARRY BLEVINS AGE: 76 SEX: F ARRIVES VIA: Walk-In INFORMANT: Patient ED PROVIDER(S): Rosario Petit DO CHIEF COMPLAINT: Weakness PLAN: Disposition: Admit to the [facility] Condition: Good MEDICAL DECISION MAKING: This is a 76-year-old female patient who presents to the emergency department with increasing weakness over the past 3 days. The patient had a diarrheal bowel movement tonight that she noticed was black and tarry. Patient is noted to have significant anemia with a hemoglobin of 6.8 and an elevated INR at 7.1. The patient describes feeling extremely short of breath with any type of exertion. Triage Nursing notes reviewed and agree with them. Additional history obtained from family members at the bedside Prior medical records reviewed Vital Signs: reviewed and unremarkable Differential diagnosis: Anemia, CHF, electrolyte abnormality ER treatment provided: Packed red blood cell transfusion Diagnostics interpreted by me: ECG: Normal sinus rhythm at a rate of 89 with an incomplete right bundle branch block. There is no ST segment elevation or signs of ischemia. There is no ectopy. Cardiac Monitoring: Sinus rhythm at 85 Laboratory studies: See below Imaging studies: As per my interpretation Portable chest x-ray: Stable reticulonodular opacities in the upper lung fernandez HPI: 76/F arrives for evaluation of generalized weakness and black stools. The patient describes increasing weakness over the past 3 days. She noticed that her blood pressure has been going up and down as has her blood sugars. Tonight, the patient had a diarrheal bowel movement that she describes as black and tarry. She describes feeling drained and having increasing shortness of breath while walking. Patient thought that her electrolytes may be abnormal so she has been drinking Gatorade and water. ROS: See above HPI for pertinent positives & negatives. A total of 10 systems reviewed and were otherwise negative. PAST MEDICAL HISTORY:Factor V Leiden deficiency; PE; diabetes PAST SURGICAL HISTORY:See Below FAMILY HISTORY:See Below SOCIAL HISTORY:Patient lives with her family. HOME MEDICATIONS:See list ALLERGIES:See list VITALS:See Below PHYSICAL EXAMINATION: HEENT: Head - normocephalic and atraumatic Pupils are equal, round, and reactive to light. Extraocular eye muscles are intact, and sclera are anicteric. Nose - moist nasal mucosa without discharge. Mouth - moist buccal mucosa. Oropharynx is nonerythematous and there is no tonsillar exudate or edema noted. Neck: Supple; no JVD or cervical lymphadenopathy. There is no thyromegaly. Heart: Regular rate and rhythm. There is a normal S1 and S2 with no murmurs, clicks, or gallops appreciated. Lungs: Clear to auscultation bilaterally with no wheezes, rales, or rhonchi. Abdomen: Soft, completely nontender, nondistended, with good bowel sounds. There are no palpable pulsatile masses or hepatosplenomegaly. There is no guarding, rigidity, or rebound noted. Extremities: No evidence of cyanosis, clubbing, or edema. There are easily palpable peripheral pulses. Skin: Extremely pale warm and dry with good turgor and no rashes. ED COURSE: Times/Reassessments: 0200: The patient was evaluated in room C8. A complete history and physical was performed. An order was placed for continuous cardiac monitoring. Patient is in a normal sinus rhythm at a rate of 85. A twelve-lead EKG was obtained. An IV lock was initiated and labs were drawn as above. The patient brought a stool specimen from home. This was Hemoccult tested and was positive. It was black and tarry in color. She was typed and crossed for red blood cells. The patient's hemoglobin was found to be 6.8. She will be transfused with 2 units of blood. The patient was consented for the blood transfusion. The patient's INR was elevated at 7.1. The patient remained hemodynamically stable. I discussed the case with the [facility] hospitalist. I have personally spent greater than 50 minutes of critical care time in the direct management of this patient. This includes bedside care, interpretation of diagnostic studies, and testing, discussion with consultants, patient, and family members, and other required patient management activities. This 50 minutes is in excess of all separately billable procedures. 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 Diabetes Factor V Leiden mutation History of TIA (transient ischemic attack) HTN (hypertension) Pulmonary embolism TIA (transient ischemic attack) Surgical History H/O: hysterectomy Family History (Updated 12/06/21 @ 05:59 by Solitario Pelayo MD) Mother Diabetes Stroke Father Myocardial infarction Stroke Denies family history of Ovarian cancer Prostate cancer Breast cancer Colorectal cancer Hypertension Social History Smoking Status: Never smoker Second Hand Exposure: No; Hx Alcohol Use: No Hx Substance Use: No Preferred Language: Belarusian Communication Ability: Effective Visual Impairment: No Limitations Manager Deli Required: No Beliefs That Will Affect Care: None Current Living Situation: Family Feels Safe at Home: Yes caffeine: Yes Dental Care, Regularly: No Physical Activity Frequency: Daily Seatbelt Use: always Sunscreen Use: Yes Assistive Devices: Denture - Upper and Glasses Allergies Allergies Allergy/AdvReac Type Severity Reaction Status Date / Time chocolate flavor Allergy Unknown Headache Verified 12/06/21 03:01 Home Meds Home Medications Medication Instructions Recorded Confirmed albuterol sulfate 90 mcg/actuation See Rx Instructions INHALATION 05/30/19 12/06/21 aerosol inhaler .COMPLEX PRN gm blood sugar diagnostic (OneTouch #10 ea 05/30/19 05/18/21 Verio test strips) oxygen-air delivery systems #1 05/30/19 05/18/21 ascorbic acid (vitamin C) 1,000 mg 1 g PO DAILY 12/06/21 12/06/21 tablet (Vitamin C) aspirin 81 mg tablet,delayed 81 mg PO DAILY 12/06/21 12/06/21 release (Ecotrin Low Strength) cholecalciferol (vitamin D3) 25 0 mcg PO DAILY 12/06/21 12/06/21 mcg (1,000 unit) capsule (Vitamin D3) latanoprost 0.005 % eye drops 1 drp OPB HS 12/06/21 12/06/21 prednisone 10 mg tablet 15 mg PO DAILY 12/06/21 12/06/21 vitamin B complex 1 tab PO DAILY 12/06/21 12/06/21 vitamin E 400 unit tablet 0 mg PO DAILY 12/06/21 12/06/21 zinc 10 mg tablet 0 mg PO DAILY 12/06/21 12/06/21 Previous Rx's Medication Instructions Recorded atorvastatin 40 mg tablet 40 mg PO DAILY #90 tab 03/15/21 metformin 1,000 mg tablet 1,000 mg PO BID #180 tab 03/15/21 (Glucophage) warfarin 5 mg tablet See Rx Instructions .ROUTE 11/29/21 .COMPLEX #135 tablet Results & Data (ED) Vital Signs Vital Signs - 24 hr 12/06/21 01:54 12/06/21 02:17 12/06/21 02:51 Temperature 36.6 C Temperature Source Temporal Artery Scan Pulse Rate 99 H Pulse Rate [Apical] Respiratory Rate 18 Respiratory Effort / Characteristics Non-Labored Respiratory Depth Normal Blood Pressure 112/44 L Blood Pressure [Left Arm] Blood Pressure Mean 66 Blood Pressure Mean [Left Arm] Blood Pressure Position Pulse Oximetry 100 99 98 Oxygen Delivery Method Room Air Room Air Room Air Sepsis Recent Fever Within 48 Hours No Sepsis New/Unexplained Change in Mental Status No Sepsis Action Taken by Nursing No Action Required 12/06/21 03:00 12/06/21 03:30 12/06/21 04:00 Temperature Temperature Source Pulse Rate 94 H 85 Pulse Rate [Apical] 90 Respiratory Rate 22 18 18 Respiratory Effort / Characteristics Non-Labored Spontaneous Respiratory Depth Blood Pressure 110/59 L Blood Pressure [Left Arm] 108/55 L Blood Pressure Mean 76 Blood Pressure Mean [Left Arm] 72 Blood Pressure Position Pulse Oximetry 100 99 Oxygen Delivery Method Room Air Room Air Sepsis Recent Fever Within 48 Hours Sepsis New/Unexplained Change in Mental Status Sepsis Action Taken by Nursing 12/06/21 05:10 12/06/21 05:12 12/06/21 05:28 Temperature 37.1 C 36.8 C Temperature Source Oral Oral Pulse Rate 99 H 92 H Pulse Rate [Apical] Respiratory Rate 16 18 Respiratory Effort / Characteristics Respiratory Depth Blood Pressure 113/64 107/59 L Blood Pressure [Left Arm] Blood Pressure Mean 80 75 Blood Pressure Mean [Left Arm] Blood Pressure Position Sitting Pulse Oximetry 99 97 Oxygen Delivery Method Sepsis Recent Fever Within 48 Hours Sepsis New/Unexplained Change in Mental Status Sepsis Action Taken by Nursing 12/06/21 05:43 12/06/21 06:13 Temperature 36.7 C 36.8 C Temperature Source Oral Oral Pulse Rate 102 H 88 Pulse Rate [Apical] Respiratory Rate 20 22 Respiratory Effort / Characteristics Respiratory Depth Blood Pressure 128/72 113/65 Blood Pressure [Left Arm] Blood Pressure Mean 90 81 Blood Pressure Mean [Left Arm] Blood Pressure Position Semi-fowlers Pulse Oximetry 99 99 Oxygen Delivery Method Sepsis Recent Fever Within 48 Hours Sepsis New/Unexplained Change in Mental Status Sepsis Action Taken by Nursing Laboratory Data Result diagrams: 12/06/21 02:48 12/06/21 02:48 Lab Results 12/06/21 12/06/21 12/06/21 Range/Units 02:48 02:48 02:48 WBC 10.12 (4.8-10.8) K/uL RBC 2.34 L (4.2-5.4) M/uL Hgb 6.5 L* (12.0-16.0) g/dL Hct 20.2 L* (37-47) % MCV 86.3 (80-100) fL MCH 27.8 (25-34) pg MCHC 32.2 (32-36) g/dL RDW Std Deviation 47.1 H (36.4-46.3) fL RDW Coeff of Manjula 15.2 H (11.5-14.5) % Plt Count 198 (130-400) K/uL MPV 8.8 (7.4-10.4) fL Immature Gran % (Auto) 0.5 % Neut % (Auto) 76.9 % Lymph % (Auto) 12.9 % Harrison % (Auto) 8.3 % Eos % (Auto) 0.4 % Baso % (Auto) 1.0 % Neut # (Auto) 7.78 H (1.4-6.5) K/uL Lymph # (Auto) 1.31 (1.2-3.4) K/uL Harrison # (Auto) 0.84 H (0.11-0.59) K/uL Eos # (Auto) 0.04 (0-0.5) K/uL Baso # (Auto) 0.10 (0-0.2) K/uL Immature Gran # (Auto) 0.05 H (0.00-0.02) K/uL Polychromasia 1+ PT 61.3 H (9.0-12.0) Seconds INR 7.1 H* (0.9-1.1) APTT 45.8 H* (21.0-31.0) Seconds PTT Ratio 1.7 Sodium 131 L (136-145) mmol/L Potassium 4.2 (3.5-5.1) mmol/L Chloride 100 (98-107) mmol/L Carbon Dioxide 23 (21-32) mmol/L Anion Gap 8 (3-11) BUN 26 H (6-23) mg/dl Creatinine 0.50 L (0.6-1.2) mg/dl Est Cr Clr Drug Dosing Not Reportable Est GFR ( Amer) 107.4 ml/min Est GFR (Non-Af Amer) 92.7 ml/min BUN/Creatinine Ratio 52.0 H (10-20) Glucose 88 (70-99(Fasting)) mg/dl Calcium 8.3 L (8.5-10.1) mg/dl Total Bilirubin 0.8 (0.2-1.0) mg/dl AST 23 (13-39) U/L ALT 18 (7-52) U/L Alkaline Phosphatase 38 (34-104) U/L Troponin I 0.03 (0-0.04) ng/ml Total Protein 5.4 L (6.0-8.3) gm/dl Albumin 3.6 (3.4-5.0) gm/dl Globulin 1.8 L (2.5-4.0) gm/dl Albumin/Globulin Ratio 2.0 (0.9-2) POC Stool Occult Blood (Negative) SARS-CoV-2, RNA, NAAT (NEGATIVE) Blood Type Blood Type Recheck Antibody Screen Crossmatch 12/06/21 12/06/21 12/06/21 Range/Units 03:00 03:16 03:20 WBC (4.8-10.8) K/uL RBC (4.2-5.4) M/uL Hgb (12.0-16.0) g/dL Hct (37-47) % MCV (80-100) fL MCH (25-34) pg MCHC (32-36) g/dL RDW Std Deviation (36.4-46.3) fL RDW Coeff of Manjula (11.5-14.5) % Plt Count (130-400) K/uL MPV (7.4-10.4) fL Immature Gran % (Auto) % Neut % (Auto) % Lymph % (Auto) % Harrison % (Auto) % Eos % (Auto) % Baso % (Auto) % Neut # (Auto) (1.4-6.5) K/uL Lymph # (Auto) (1.2-3.4) K/uL Harrison # (Auto) (0.11-0.59) K/uL Eos # (Auto) (0-0.5) K/uL Baso # (Auto) (0-0.2) K/uL Immature Gran # (Auto) (0.00-0.02) K/uL Polychromasia PT (9.0-12.0) Seconds INR (0.9-1.1) APTT (21.0-31.0) Seconds PTT Ratio Sodium (136-145) mmol/L Potassium (3.5-5.1) mmol/L Chloride (98-107) mmol/L Carbon Dioxide (21-32) mmol/L Anion Gap (3-11) BUN (6-23) mg/dl Creatinine (0.6-1.2) mg/dl Est Cr Clr Drug Dosing Est GFR ( Amer) ml/min Est GFR (Non-Af Amer) ml/min BUN/Creatinine Ratio (10-20) Glucose (70-99(Fasting)) mg/dl Calcium (8.5-10.1) mg/dl Total Bilirubin (0.2-1.0) mg/dl AST (13-39) U/L ALT (7-52) U/L Alkaline Phosphatase (34-104) U/L Troponin I (0-0.04) ng/ml Total Protein (6.0-8.3) gm/dl Albumin (3.4-5.0) gm/dl Globulin (2.5-4.0) gm/dl Albumin/Globulin Ratio (0.9-2) POC Stool Occult Blood Positive A (Negative) SARS-CoV-2, RNA, NAAT NEGATIVE (NEGATIVE) Blood Type O Positive Blood Type Recheck Antibody Screen NEGATIVE Crossmatch See Detail 12/06/21 Range/Units 04:16 WBC (4.8-10.8) K/uL RBC (4.2-5.4) M/uL Hgb (12.0-16.0) g/dL Hct (37-47) % MCV (80-100) fL MCH (25-34) pg MCHC (32-36) g/dL RDW Std Deviation (36.4-46.3) fL RDW Coeff of Manjula (11.5-14.5) % Plt Count (130-400) K/uL MPV (7.4-10.4) fL Immature Gran % (Auto) % Neut % (Auto) % Lymph % (Auto) % Harrison % (Auto) % Eos % (Auto) % Baso % (Auto) % Neut # (Auto) (1.4-6.5) K/uL Lymph # (Auto) (1.2-3.4) K/uL Harrison # (Auto) (0.11-0.59) K/uL Eos # (Auto) (0-0.5) K/uL Baso # (Auto) (0-0.2) K/uL Immature Gran # (Auto) (0.00-0.02) K/uL Polychromasia PT (9.0-12.0) Seconds INR (0.9-1.1) APTT (21.0-31.0) Seconds PTT Ratio Sodium (136-145) mmol/L Potassium (3.5-5.1) mmol/L Chloride (98-107) mmol/L Carbon Dioxide (21-32) mmol/L Anion Gap (3-11) BUN (6-23) mg/dl Creatinine (0.6-1.2) mg/dl Est Cr Clr Drug Dosing Est GFR ( Amer) ml/min Est GFR (Non-Af Amer) ml/min BUN/Creatinine Ratio (10-20) Glucose (70-99(Fasting)) mg/dl Calcium (8.5-10.1) mg/dl Total Bilirubin (0.2-1.0) mg/dl AST (13-39) U/L ALT (7-52) U/L Alkaline Phosphatase (34-104) U/L Troponin I (0-0.04) ng/ml Total Protein (6.0-8.3) gm/dl Albumin (3.4-5.0) gm/dl Globulin (2.5-4.0) gm/dl Albumin/Globulin Ratio (0.9-2) POC Stool Occult Blood (Negative) SARS-CoV-2, RNA, NAAT (NEGATIVE) Blood Type Blood Type Recheck O Positive Antibody Screen Crossmatch Imaging Data Radiologist's Impression: Chest X-Ray 12/06/21 02:28 XR chest 1V portable HISTORY: 76 years-old Female sob acute shortness of breath with weakness COMPARISON: Chest radiographs 09/20/2018 TECHNIQUE: Portable AP view of the chest FINDINGS: The cardiomediastinal and hilar silhouettes are unchanged. Chronic reticular interstitial coarsening, most pronounced in the mid to upper lung zones is redemonstrated. No pneumothorax or large pleural effusion or overt pulmonary edema. Chronic blunting of the costophrenic angles. No lobar airspace consolidation. Degenerative changes of the shoulders and spine. IMPRESSION: 1. No acute process. 2. Chronic reticular interstitial opacities of the mid to upper lung zones suggestive of fibrosis. ACT 112: Negative or not required by law. The above report was generated using voice recognition software. It may contain grammatical, syntax or spelling errors. Electronically signed by: Loco Valiente M.D. 12/06/2021 6:45 AM Discharge Plan Visit Data Chief Complaint: Weakness Stated Complaint: WEAKNESS, HIGH PB, BLACK STOOL ED Provider: Rosario Petit Discharge Problem: GI (gastrointestinal bleed), Anemia, Supratherapeutic INR Forms Stand Alone Forms: [facility] Prescriptions Prescriptions: No Action atorvastatin 40 mg tablet 40 mg PO DAILY Qty: 90 RF: 3 metformin [Glucophage] 1,000 mg tablet 1,000 mg PO BID Qty: 180 RF: 3 warfarin 5 mg tablet See Rx Instructions mg .ROUTE .COMPLEX Qty: 135 RF: 3 albuterol sulfate 90 mcg/actuation HFA aerosol inhaler See Rx Instructions inhalation .COMPLEX PRN (Reason: Shortness Of Breath Or Wheezing) RF: 0 (DME) OneTouch Verio test strips strip See Dose Instructions .ROUTE .MEDSUPPLY Qty: 10 RF: 0 (DME) oxygen-air delivery systems device See Dose Instructions .ROUTE .MEDSUPPLY Qty: 1 RF: 0 latanoprost 0.005 % drops 1 drp OPB HS RF: 0 ascorbic acid (vitamin C) [Vitamin C] 1,000 mg Tablet 1 g PO DAILY RF: 0 vitamin E 400 unit Tablet 0 mg PO DAILY RF: 0 vitamin B complex Tablet 1 tab PO DAILY RF: 0 zinc 10 mg Tablet 0 mg PO DAILY RF: 0 cholecalciferol (vitamin D3) [Vitamin D3] 25 mcg (1,000 unit) Capsule 0 mcg PO DAILY RF: 0 prednisone 10 mg tablet 15 mg PO DAILY RF: 0 aspirin [Ecotrin Low Strength] 81 mg tablet,delayed release (DR/EC) 81 mg PO DAILY RF: 0 Referrals Referrals: Jessenia Dennis CRNP [Primary Care Provider] - Discharge Problem: GI (gastrointestinal bleed) Qualifiers: GI bleed type/associated pathology: unspecified gastrointestinal hemorrhage type Qualified Code(s): K92.2 - Gastrointestinal hemorrhage, unspecified Anemia Qualifiers: Anemia type: unspecified type Qualified Code(s): D64.9 - Anemia, unspecified
[2021-12-06 03:53] LABS: INR 7.1 (0.9-1.1); Partial Thromboplastin Time 45.8 Seconds (21.0-31.0)
--- NOTE | 2021-12-06 04:50 | History & Physical Report ---
Date of Service December 06, 2021 Assessment & Plan (1) Acute blood loss anemia: Plan: 76 y/o F w/ PMHx of DM2, sarcoidosis, CHALO, HLD, adrenal suppression, factor V Leiden, TIA, chronic warfarin use who presents w/ fatigue/weakness 2/2 possible UGIB and presenting w/ Hb of 6.5 in setting of supratherapeutic INR of 7.1 and melenic guaic pos stool. S/p 2u pRBC in the ED. No hx of either upper endoscopy or colonoscopy. Consult GI NPO Transfusing 2u prbc. Vit K; defer to day team. Recheck H/H at 1PM. Regarding fluid resuscitation: 11/26/18 echo: EF 60-65%. No RWMA. Mild concentric LVH. Mild to mod aortic stenosis. Mild MR. (2) Anticoagulant long-term use: Plan: Supratherapeutic INR 7.1. Hold home warfarin. Patient believes she is heterozygote factor V Leiden. Asymmetric R ankle swelling noted. If worsening and if hypoxia, consider venous doppler. (3) DM (diabetes mellitus), type 2: Plan: A1c 5.5 on 11/03/20. Will recheck w/ PM labs. Check BSG ACHS. Will add SSI if indicated. Hold home metformin. (4) Sarcoidosis: Plan: Uses rescue inhaler seldomly for sarcoidosis. (5) Obstructive sleep apnea: Plan: Cpap qhs. (6) Hypercholesterolemia: Plan: Continue home regimen. (7) Adrenal suppression: Plan: Chronic 15mg PO prednisone use for sarcoidosis. If hypotensive, consider checking random cortisol. (8) Hyponatremia: Plan: 131 on admission. Asymptomatic. NSS@90mL/hr. Recheck metabolic panel. Plan: FEN/GI: NPO. Maintenance IV fluids NSS 90/hr. anticoag: held. full code dispo: med tele History of Present Illness Chief Complaint: weakness and fatigue Primary Care Provider: RASHI Stanford 76 y/o F w/ PMHx of DM2, sarcoidosis, CHALO, HLD, adrenal suppression, factor V Leiden, TIA, chronic warfarin use who presents w/ weakness. Hb was 6.5 in the ED. INR 7.1. S/p 2u pRBC in the ED/ x 2 week of fatigue and mild lightheadedness, worsening. Also on baby ASA. Yesterday evening noted black tarry stool. Denies any prior hx of bleeds. Has never had endoscopy. INR goal 2- 3 per patient's PCP. Currently still feeling fatigued. 1st bag of prbcs still getting transfused. Had covid booster 2 weeks ago. ED course: Transfusing 2u prbc. Allergies Allergy/AdvReac Type Severity Reaction Status Date / Time chocolate flavor Allergy Unknown Headache Verified 12/07/21 11:52 Home Medications Medication Instructions Recorded Confirmed Type albuterol sulfate 90 mcg/actuation See Rx Instructions INHALATION 05/30/19 12/06/21 History aerosol inhaler .COMPLEX PRN gm blood sugar diagnostic (OneTouch #10 ea 05/30/19 05/18/21 History Verio test strips) oxygen-air delivery systems #1 05/30/19 05/18/21 History atorvastatin 40 mg tablet 40 mg PO DAILY #90 tab 03/15/21 12/06/21 Rx metformin 1,000 mg tablet 1,000 mg PO BID #180 tab 03/15/21 12/06/21 Rx (Glucophage) ascorbic acid (vitamin C) 1,000 mg 1 g PO DAILY 12/06/21 12/06/21 History tablet (Vitamin C) aspirin 81 mg tablet,delayed 81 mg PO DAILY 12/06/21 12/06/21 History release (Ecotrin Low Strength) cholecalciferol (vitamin D3) 25 0 mcg PO DAILY 12/06/21 12/06/21 History mcg (1,000 unit) capsule (Vitamin D3) latanoprost 0.005 % eye drops 1 drp OPB HS 12/06/21 12/06/21 History prednisone 10 mg tablet 15 mg PO DAILY 12/06/21 12/06/21 History vitamin B complex 1 tab PO DAILY 12/06/21 12/06/21 History vitamin E 400 unit tablet 0 mg PO DAILY 12/06/21 12/06/21 History zinc 10 mg tablet 0 mg PO DAILY 12/06/21 12/06/21 History pantoprazole 40 mg tablet,delayed 40 mg PO BID 30 Days #60 tab 12/08/21 Rx release pantoprazole 40 mg tablet,delayed 40 mg PO BID 30 Days #60 tab 12/08/21 Rx release warfarin 5 mg tablet See Rx Instructions .ROUTE 12/08/21 12/06/21 Rx .COMPLEX #30 tab Past Med/Surg History Medical History 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 Diabetes Factor V Leiden mutation History of TIA (transient ischemic attack) HTN (hypertension) Pulmonary embolism TIA (transient ischemic attack) Surgical History H/O: hysterectomy Family History Mother Diabetes Stroke Father Myocardial infarction Stroke Denies family history of Ovarian cancer Prostate cancer Breast cancer Colorectal cancer Hypertension Social History Smoking Status: Never smoker Second Hand Exposure: No; Hx Alcohol Use: No Hx Substance Use: No Preferred Language: Palauan Communication Ability: Effective Visual Impairment: No Limitations Sports Activities Foul Judge Required: No Beliefs That Will Affect Care: None Current Living Situation: Spouse Feels Safe at Home: Yes caffeine: Yes Dental Care, Regularly: No Physical Activity Frequency: Daily Seatbelt Use: always Sunscreen Use: Yes Assistive Devices: Glasses Review of Systems Review of Systems: All systems reviewed & are unremarkable except as noted in HPI & below Constitutional: Denies fever, chills, weight change Eyes: Denies blurry vision, vision changes ENT: Denies sore throat, sinus pain Cardiovascular: Denies chest pain, palpitations Respiratory: Denies shortness of breath, cough Gastrointestinal: Denies abdominal pain, nausea, vomiting, constipation, diarrhea. See HPI, + melena Genitourinary: Denies urinary symptoms including dysuria Musculoskeletal: Denies weakness, muscle aches/pain, joint aches/pain Neurological: Denies headache, numbness, tingling, focal weakness Physical Exam Physical Exam: General: A&Ox4. NAD. Cooperative. HEENT: Atraumatic, normocephalic. EOMI. PERRL. Mildly pale mucous membranes of mouth and eyes. Pulm: Mostly CTAB. -wheezes, -rales, -rhonchi. No crackles at bases. Faint transient crackles at upper fernandez that were not audible on repeat exam; likely 2/2 sarcoidosis. No respiratory distress. Cardiac: TRR. Loud blowing 4/6 systolic murmur at pulmonic area, not new per patient. Radial pulses intact and symmetrical. DP pulses 2+ bilat. Minimal trace BLE. R ankle has notable swelling at medial mealleolus, unable to see the bone because of the swelling. Normal cap refill. Abdominal: Nontender, nondistended, soft. No increased erythema of either lower extremity. Neuro: CN II-XII intact. Strength and sensation of extrem intact. Results & Data Results & Data ([facility]) Vital Signs (Past 12 Hours) Vital Signs vitals reviewed. HR up to 90s. BP stable. 99 on room air. Temp Pulse Pulse Resp BP BP Pulse Ox 12/06/21 04:00 90 18 108/55 L 12/06/21 03:30 85 18 110/59 L 99 12/06/21 03:00 94 H 22 100 12/06/21 02:51 98 12/06/21 02:17 99 12/06/21 01:54 36.6 C 99 H 18 112/44 L 100 Laboratory Results wbc 10.12, borderline. Hb 6.5L. PT 61.3H. INR 7.1H. aptt 45.8H. Na 131, chronicity unknown. Cr 0.50. BUN/Cr 52.0. BUN 26H. a1c 5.5 in 10/2020, need repeat. Pos fecal occult stool. covid neg. A1c 8.3 12/06/21 02:48 12/06/21 02:48 Cardiac Enzymes 12/06/21 Range/Units 02:48 AST 23 (13-39) U/L Troponin I 0.03 (0-0.04) ng/ml Coagulation 12/06/21 Range/Units 02:48 PT 61.3 H (9.0-12.0) Seconds APTT 45.8 H* (21.0-31.0) Seconds CBC 12/06/21 Range/Units 02:48 WBC 10.12 (4.8-10.8) K/uL RBC 2.34 L (4.2-5.4) M/uL Hgb 6.5 L* (12.0-16.0) g/dL Hct 20.2 L* (37-47) % Plt Count 198 (130-400) K/uL Neut # (Auto) 7.78 H (1.4-6.5) K/uL Lymph # (Auto) 1.31 (1.2-3.4) K/uL [place] # (Auto) 0.84 H (0.11-0.59) K/uL Eos # (Auto) 0.04 (0-0.5) K/uL Baso # (Auto) 0.10 (0-0.2) K/uL Comprehensive Metabolic Panel 12/06/21 Range/Units 02:48 Sodium 131 L (136-145) mmol/L Potassium 4.2 (3.5-5.1) mmol/L Chloride 100 (98-107) mmol/L Carbon Dioxide 23 (21-32) mmol/L BUN 26 H (6-23) mg/dl Creatinine 0.50 L (0.6-1.2) mg/dl Glucose 88 (70-99(Fasting)) mg/dl Calcium 8.3 L (8.5-10.1) mg/dl AST 23 (13-39) U/L ALT 18 (7-52) U/L Alkaline Phosphatase 38 (34-104) U/L Total Protein 5.4 L (6.0-8.3) gm/dl Albumin 3.6 (3.4-5.0) gm/dl Intake and Output 12/05/21 12/05/21 12/06/21 14:59 22:59 06:59 Other: Weight 50 kg Weight Measurement Method Built in [facility] Patient Weight 12/06/21 06:59 Weight 50 kg Diagnostic Findings cxr per my read: bilateral reticulonodular and interstitial opacities unchanged from 09/20/18 cxr. ECG Additional Comments: ecg per my read: NSR 89. incomplete RBBB not new. Normal intervals. Normal axis. No acute ST-T changes. Compared 11/25/18 ecg. Code Status & VTE Plan Code Status full VTE Prophylaxis Plan VTE Prophylaxis will be ordered: Yes Supervising Physician Co-Signing Physician Notes Attending addendum: I have physically seen this patient, have supervised the medical residents activities, and agree with the H&P unless as otherwise noted. Assessment and Plan: Acute blood loss anemia- Hemoglobin 6.5 upon admission To receive 2 units PRBCs written from by the ED H&H every 6 hours Protonix IV Consult gastroenterology NPO except essential medications Hold warfarin due to supratherapeutic INR of 7.1 Supratherapeutic INR- 7.1 upon admission Give vitamin K and recheck laboratories in 6 hours Remaining orders and notations as noted Resident Activity Tracking Resident Involvement: Resident Care Provided Care Provided: Adult Hospital Medicine
--- NOTE | 2021-12-06 06:46 | XRay Report ---
XR chest 1V portable HISTORY: 76 years-old Female sob acute shortness of breath with weakness COMPARISON: Chest radiographs 09/20/2018 TECHNIQUE: Portable AP view of the chest FINDINGS: The cardiomediastinal and hilar silhouettes are unchanged. Chronic reticular interstitial coarsening, most pronounced in the mid to upper lung zones is redemonstrated. No pneumothorax or large pleural e ffusion or overt pulmonary edema. Chronic blunting of the costophrenic angles. No lobar airspace cons olidation. Degenerative changes of the shoulders and spine. IMPRESSION: 1. No acute process. 2. Chronic reticular interstitial opacities of the mid to upper lung zones suggestive of fibrosis. ACT 112: Negative or not required by law. The above report was generated using voice recognition software. It may contain grammatical, syntax o r spelling errors. Electronically signed by: Loco Valiente M.D. 12/06/2021 6:45 AM
[2021-12-06] MEDS ORDERED: PHYTONADIONE 2.5 MG in SODIUM CHLORIDE 0.9% 50 ML IV ONE (07:39)
[2021-12-06] MEDS: SODIUM CHLORIDE 0.9% 1000ML 1,000 ML IV SCH ×2 (07:45→18:29)
[2021-12-06] MEDS ORDERED: ALUMINUM/MAGNESIUM SUSP 30 ML UDC PO PRN (09:37)
[2021-12-06] MEDS ORDERED: ACETAMINOPHEN 325 MG TAB PO PRN (09:37)
[2021-12-06] MEDS ORDERED: LEVALBUTEROL 0.31MG/3 ML VIAL NEB PRN (09:37)
[2021-12-06] MEDS ORDERED: ONDANSETRON INJ 2 MG/ML 2 ML VIAL IV PRN (09:37)
[2021-12-06] MEDS ORDERED: POLYETHYLENE (MIRALAX) 17 GM PACK PO PRN (09:37)
--- NOTE | 2021-12-06 10:03 | Electrocardiogram Report ---
Test Reason : Blood Pressure : / mmHG Vent. Rate : 089 BPM Atrial Rate : 089 BPM P-R Int : 120 ms QRS Dur : 092 ms QT Int : 376 ms P-R-T Axes : 061 057 017 degrees QTc Int : 457 ms Poor data quality, interpretation may be adversely affected Normal sinus rhythm Possible Left atrial enlargement Incomplete right bundle branch block Borderline ECG When compared with ECG of 25-NOV-2018 14:20, No significant change was found Confirmed by Jamaal Lal ([id number]) on 12/06/2021 10:03:10 AM Referred By: REFERRED SELF Confirmed By:Miguel Lal
--- NOTE | 2021-12-06 11:25 | Gastrointestinal Consultation ---
Date of Consultation December 06, 2021 Assessment & Plan (1) Supratherapeutic INR: (2) Anemia: (3) GI (gastrointestinal bleed): -Keep NPO after midnight for EGD on 12/07/21 once INR has been reversed and H/H is improved. -IV Protonix 40 mg BID. -Continue to monitor H/H. Supervising Physician Co-Signing Physician Notes Agree with YAMINI King as above Abd: Soft, NT, ND, +BS No bloody BM's today NPO after midnight Plan for EGD in AM History of Present Illness Reason for Consultation: UGI bleed Attending Physician: Rose Yap DO History of Present Illness Patient is a 76 yo female with PMH of Factor V Leiden on Coumadin, DM2, Sarcoidosis, CHALO, osteoporosis, HLD, and adrenal suppression who presented to [facility] for weakness. She notes that she had a black, tarry stool on 12/04/21. She takes Coumadin due to her history of Factor V Leiden mutation. She denies a history of GI abnormalities. Upon evaluation in the ED, it appears her H/H was 6.5/20.2. INR was 7.1. She was given 2 units of PRBCs in the ED and Vitamin K 2.5 mg. She denies epigastric pain, heartburn, nausea, or vomiting. She denies Ibuprofen/Motrin/Advil/other OTC NSAIDs. She denies a history of GERD. She does not take a PPI at home. She reports she had a colonoscopy many years ago, but cannot remember when. She denies ever having an EGD in the past. Allergies Allergy/AdvReac Type Severity Reaction Status Date / Time chocolate flavor Allergy Unknown Headache Verified 12/06/21 03:01 Home Medications Medication Instructions Recorded Confirmed Type albuterol sulfate 90 mcg/actuation See Rx Instructions INHALATION 05/30/19 12/06/21 History aerosol inhaler .COMPLEX PRN gm blood sugar diagnostic (OneTouch #10 ea 05/30/19 05/18/21 History Verio test strips) oxygen-air delivery systems #1 05/30/19 05/18/21 History atorvastatin 40 mg tablet 40 mg PO DAILY #90 tab 03/15/21 12/06/21 Rx metformin 1,000 mg tablet 1,000 mg PO BID #180 tab 03/15/21 12/06/21 Rx (Glucophage) warfarin 5 mg tablet See Rx Instructions .ROUTE 11/29/21 12/06/21 Rx .COMPLEX #135 tablet ascorbic acid (vitamin C) 1,000 mg 1 g PO DAILY 12/06/21 12/06/21 History tablet (Vitamin C) aspirin 81 mg tablet,delayed 81 mg PO DAILY 12/06/21 12/06/21 History release (Ecotrin Low Strength) cholecalciferol (vitamin D3) 25 0 mcg PO DAILY 12/06/21 12/06/21 History mcg (1,000 unit) capsule (Vitamin D3) latanoprost 0.005 % eye drops 1 drp OPB HS 12/06/21 12/06/21 History prednisone 10 mg tablet 15 mg PO DAILY 12/06/21 12/06/21 History vitamin B complex 1 tab PO DAILY 12/06/21 12/06/21 History vitamin E 400 unit tablet 0 mg PO DAILY 12/06/21 12/06/21 History zinc 10 mg tablet 0 mg PO DAILY 12/06/21 12/06/21 History Patient History Medical History 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 Diabetes Factor V Leiden mutation History of TIA (transient ischemic attack) HTN (hypertension) Pulmonary embolism TIA (transient ischemic attack) Surgical History H/O: hysterectomy Family History (Updated 12/06/21 @ 05:59 by Solitario Pelayo MD) Mother Diabetes Stroke Father Myocardial infarction Stroke Denies family history of Ovarian cancer Prostate cancer Breast cancer Colorectal cancer Hypertension Social History Smoking Status: Never smoker Second Hand Exposure: No; Hx Alcohol Use: No Hx Substance Use: No Preferred Language: Hebrew Communication Ability: Effective Visual Impairment: No Limitations Chief Juvenile Probation Officer Required: No Beliefs That Will Affect Care: None Current Living Situation: Spouse Feels Safe at Home: Yes Safety Concerns: Feels Safe At This Time caffeine: Yes Dental Care, Regularly: No Physical Activity Frequency: Daily Seatbelt Use: always Sunscreen Use: Yes Assistive Devices: Glasses Review of Systems Constitutional: + fatigue; no fever and no chills Respiratory: no cough and no dyspnea Cardiovascular: no chest pain Gastrointestinal: + melena; no bloating, no heartburn and no dysphagia Musculoskeletal: no problem reported Psychiatric: no problem reported Hematologic / Lymphatic: no easy bleeding Physical Exam Constitutional: well developed Neck: normal visual inspection Respiratory: normal respiratory effort Cardiovascular: Rate/Rhythm: regular rate Gastrointestinal (Abdomen): normal bowel sounds, soft, nontender, no hepatosplenomegaly Musculoskeletal: Head/Neck/Chest: normocephalic Psychiatric: Orientation: alert and oriented x 3 Results & Data ([facility]) Vital Signs (Past 12 Hours) Vital Signs Temp Pulse Pulse Resp BP BP Pulse Ox 12/06/21 10:00 37 C 88 17 121/72 98 12/06/21 09:37 37.1 C 85 18 111/67 98 12/06/21 09:30 37 C 85 18 111/67 98 12/06/21 09:15 36.9 C 91 H 21 113/62 98 12/06/21 09:02 37.1 C 92 H 20 113/65 98 12/06/21 07:18 37.1 C 86 19 111/61 98 12/06/21 07:13 37.1 C 86 19 111/61 98 12/06/21 07:00 86 16 104/69 99 12/06/21 06:30 86 16 109/61 98 12/06/21 06:13 36.8 C 88 22 113/65 99 12/06/21 05:43 36.7 C 102 H 20 128/72 99 12/06/21 05:28 36.8 C 92 H 18 107/59 L 97 12/06/21 05:12 37.1 C 12/06/21 05:10 99 H 16 113/64 99 12/06/21 04:00 90 18 108/55 L 12/06/21 03:30 85 18 110/59 L 99 12/06/21 03:00 94 H 22 100 12/06/21 02:51 98 12/06/21 02:17 99 12/06/21 01:54 36.6 C 99 H 18 112/44 L 100 Pulse Ox 12/06/21 10:00 12/06/21 09:37 98 12/06/21 09:30 12/06/21 09:15 12/06/21 09:02 12/06/21 07:18 12/06/21 07:13 12/06/21 07:00 12/06/21 06:30 12/06/21 06:13 12/06/21 05:43 12/06/21 05:28 12/06/21 05:12 12/06/21 05:10 12/06/21 04:00 12/06/21 03:30 12/06/21 03:00 12/06/21 02:51 12/06/21 02:17 12/06/21 01:54 PG Care Time/CCT Total # of Minutes Spent Total Time Spent with Patient: Total time spent is greater than 50% in coordination of care (as documented) at patient's floor/unit and/or counseling patient: Coding Level of Care Code 35658 Initial Inpt Care Lvl 3 Diagnoses Supratherapeutic INR R79.1 Anemia D64.9 Anemia type: unspecified type GI (gastrointestinal bleed) K92.2 GI bleed type/associated pathology: unspecified gastrointestinal hemorrhage type (1) GI (gastrointestinal bleed) GI bleed type/associated pathology: unspecified gastrointestinal hemorrhage type Qualified Code(s): K92.2 - Gastrointestinal hemorrhage, unspecified (2) Anemia Anemia type: unspecified type Qualified Code(s): D64.9 - Anemia, unspecified
[2021-12-06] MEDS: ATORVASTATIN 40 MG TAB PO SCH (12:52)
[2021-12-06] MEDS: predniSONE 5 MG TAB PO SCH (12:52)
[2021-12-06] MEDS: PANTOprazole 40 MG in SYRINGE 0 ML IV SCH ×2 (12:52→21:05)
[2021-12-06 13:22] LABS: Basophils # (auto) 0.05 K/uL (0-0.2); Basophils % (auto) 0.8 %; Eosinophils # (auto) 0.06 K/uL (0-0.5); Hematocrit (blood only) 25.6 % (37-47); Hemoglobin 8.5 g/dL (12.0-16.0); Immature Granulocytes # (auto) 0.05 K/uL (0.00-0.02); Immature Granulocytes % (auto) 0.8 %; Lymphocytes # (auto) 1.29 K/uL (1.2-3.4); Lymphocytes % (auto) 20.8 %; Mean Corpuscular Hemoglobin 28.9 pg (25-34); Mean Corpuscular Hgb Conc 33.2 g/dL (32-36); Mean Corpuscular Volume 87.1 fL (80-100); Mean Platelet Volume 9.5 fL (7.4-10.4); Monocytes # (auto) 0.66 K/uL (0.11-0.59); Monocytes % (auto) 10.6 %; Neutrophils # (auto) 4.09 K/uL (1.4-6.5); Platelet Count 186 K/uL (130-400); RDW Coefficient of Variation 15.6 % (11.5-14.5); RDW Standard Deviation 48.6 fL (36.4-46.3); Red Blood Count 2.94 M/uL (4.2-5.4)
[2021-12-06 13:34] LABS: INR 2.1 (0.9-1.1); Partial Thromboplastin Ratio 1.3; Partial Thromboplastin Time 35.2 Seconds (21.0-31.0); Prothrombin Time 19.7 Seconds (9.0-12.0)
[2021-12-06 13:57] LABS: Est GFR (African American) 114.7 ml/min; Potassium 3.8 mmol/L (3.5-5.1)
[2021-12-06 13:58] LABS: Albumin Globulin Ratio 2.1 (0.9-2); Albumin Level 3.4 gm/dl (3.4-5.0); BUN Creatinine Ratio 48.8 (10-20); Bilirubin,Total 1.5 mg/dl (0.2-1.0); Calcium 7.8 mg/dl (8.5-10.1); Creatinine Clr Calc Pharmacy 81.2 ml/min; Globulin 1.6 gm/dl (2.5-4.0); Magnesium 1.8 mg/dl (1.7-2.4)
[2021-12-06] MEDS: LATANOPROST 0.005% OP SOLN 2.5 ML BTL OPB SCH (21:55)
[2021-12-07 06:51] LABS: Basophils # (auto) 0.08 K/uL (0-0.2); Eosinophils # (auto) 0.11 K/uL (0-0.5); Eosinophils % (auto) 1.4 %; Hematocrit (blood only) 27.9 % (37-47); Hemoglobin 9.2 g/dL (12.0-16.0); Immature Granulocytes # (auto) 0.04 K/uL (0.00-0.02); Immature Granulocytes % (auto) 0.5 %; Lymphocytes # (auto) 2.23 K/uL (1.2-3.4); Lymphocytes % (auto) 28.2 %; Mean Corpuscular Hemoglobin 29.1 pg (25-34); Mean Corpuscular Volume 88.3 fL (80-100); Monocytes # (auto) 0.56 K/uL (0.11-0.59); Monocytes % (auto) 7.1 %; Neutrophils # (auto) 4.89 K/uL (1.4-6.5); Neutrophils % (auto) 61.8 %; Platelet Count 219 K/uL (130-400); RDW Coefficient of Variation 16.2 % (11.5-14.5); RDW Standard Deviation 50.7 fL (36.4-46.3); Red Blood Count 3.16 M/uL (4.2-5.4); White Blood Count 7.91 K/uL (4.8-10.8)
[2021-12-07 07:02] LABS: INR 1.1 (0.9-1.1); Prothrombin Time 11.3 Seconds (9.0-12.0)
--- NOTE | 2021-12-07 07:24 | Hospitalist Progress Note ---
Date of Service December 07, 2021 Assessment & Plan (1) Acute blood loss anemia: Plan: 76 y/o F w/ PMHx of DM2, sarcoidosis, CHALO, HLD, adrenal suppression, factor V Leiden, TIA, chronic warfarin use who presents w/ fatigue/weakness 2/2 possible UGIB and presenting w/ Hb of 6.5 in setting of supratherapeutic INR of 7.1 and melenic guaic pos stool. Anemia -Hemoglobin of 6.5 on admission; patient received 2 units of packed red blood cells, increasing hemoglobin to 9.2 as of this morning -Patient held for close monitoring following endoscopy done earlier today -Trend CBC in the morning GI bleed -Patient reported melena on admission; GI consulted, recommended endoscopy -Patient underwent endoscopy today: Revealed evidence of gastritis (esophagus, duodenum mucosa clear) * PPI twice daily x6 weeks * Follow-up outpatient with GI or PCP to discuss continuing PPI long-term, given patient's use of prednisone (for sarcoidosis) and aspirin (for heterozygous factor V Leiden mutation) to known irritants of gastric mucosa Supratherapeutic INR -INR 7.1 on admission; now 1.1 following administration of one-time dose vitamin K * Resume warfarin following endoscopy * Trend a.m. INR prior to discharge * Recommend warfarin dose adjustment in discharge summary letter to the patient's PCP Type 2 diabetes -Holding patient's home Metformin; patient's blood sugars have been well controlled * SSI without basal insulin, given patient's well-controlled sugars Dispo: MedSurg telemetry, then likely home tomorrow Code: Full code FEN/GI: Advance diet to regular (low fiber) DVT Prophylaxis: Currently holding home warfarin (2) Anticoagulant long-term use: (3) DM (diabetes mellitus), type 2: (4) Sarcoidosis: (5) Obstructive sleep apnea: (6) Hypercholesterolemia: (7) Adrenal suppression: (8) Hyponatremia: Admission and Anticipated Discharge Date Admission Date: December 06, 2021 Supervising Physician Co-Signing Physician Notes Patient seen and examined with PGY-1 Dr. Peoples. Agree with history, exam findings, assessment and plan of care as outlined. In brief, Ms. Navarro is a 76 year old female with history of DM, sarcoidosis on chronic steroids, Factor V Leiden (AC with coumadin) admitted with supratherapeutic INR and GI bleed. Feeling well today. No complaints. No dark stool or abdominal pain. VS and nursing notes reviewed. Pale appearing. Regular rhythm. Lungs are clear to auscultation in all lung fernandez. Abdomen with good bowel sounds. Soft, non-tender. Rectal exam deferred. Labs and imaging reviewed. 1. Acute blood loss anemia secondary to supratherapeutic INR and GI bleed. s/p 2 units PRBCs and hgb up to 9.2 today 2. GI bleed. Likely upper GI given hx of melena. No further bleeding today. PPI BID x 6 weeks. EGD with evidence of gastritis. No evidence of active or recent bleed in the upper GI tract. Consider long-term PPI or H2 rojelio given the long-term prednisone and ASA. 3. Supratherapeutic INR. S/p Vitamin K IV. INR 7.12.1. Holding coumadin and ASA. Restart coumadin with caution. Other chronic issues are stable, home medications continued. Dispo: Likely discharge home tomorrow if continues to do well and tolerating diet. Subjective No acute events overnight. Patient is resting in bed comfortably. She has no subjective complaints. Reports improvement in her fatigue. She would like to know when her endoscopy scheduled for. Otherwise, she has been doing labs walking the halls. Review of Systems Review of Systems: All systems reviewed & are unremarkable except as noted in HPI & below Physical Exam Constitutional: WD/WN, vitals as above Respiratory: normal respiratory effort, lungs clear to auscultation Cardiovascular: RRR, no murmur, no edema Gastrointestinal (Abdomen): normal bowel sounds, soft, nontender, no hepatosplenomegaly Results & Data Results & Data ([facility]) Vital Signs (Past 12 Hours) Vital Signs Temp Pulse Pulse Resp BP Pulse Ox 12/07/21 04:04 36.6 C 75 14 115/68 99 12/06/21 23:39 81 12/06/21 22:40 36.5 C 77 18 104/58 L 96 12/06/21 19:52 37.1 C 85 20 110/69 97 Resident Activity Tracking Resident Involvement: Resident Care Provided Care Provided: Adult Hospital Medicine
[2021-12-07 07:46] LABS: Calcium 8.2 mg/dl (8.5-10.1); Creatinine Clr Calc Pharmacy 70.9 ml/min; Est GFR (African American) 109.7 ml/min; Est GFR (Non-African American) 94.6 ml/min; Potassium 3.6 mmol/L (3.5-5.1)
--- NOTE | 2021-12-07 08:19 | Anesthesiology Consultation ---
Date of Service December 07, 2021 Assessment & Plan (1) Encounter for pre-operative examination: Chart Review Chart Review: Acceptable Risk for Surgery and Patient NOT seen in Pre Admission Testing Consults Requested none History Surgery Operation Date: 12/07/21 16:00 Proposed Procedures p Esophagogastroduodenoscopy Dr Vamshi Akbar Case, DO Height/Weight Height: 5 ft Weight: 53.8 kg Allergies Allergy/AdvReac Type Severity Reaction Status Date / Time chocolate flavor Allergy Unknown Headache Verified 12/06/21 03:01 Medications Home Medications Medication Instructions Recorded Confirmed Last Taken albuterol sulfate 90 mcg/actuation See Rx Instructions INHALATION 05/30/19 12/06/21 Unknown aerosol inhaler .COMPLEX PRN gm blood sugar diagnostic (OneTouch #10 ea 05/30/19 05/18/21 Unknown Verio test strips) oxygen-air delivery systems #1 05/30/19 05/18/21 Unknown atorvastatin 40 mg tablet 40 mg PO DAILY #90 tab 03/15/21 12/06/21 Unknown metformin 1,000 mg tablet 1,000 mg PO BID #180 tab 03/15/21 12/06/21 Unknown (Glucophage) warfarin 5 mg tablet See Rx Instructions .ROUTE 11/29/21 12/06/21 12/05/21 18:00 .COMPLEX #135 tablet ascorbic acid (vitamin C) 1,000 mg 1 g PO DAILY 12/06/21 12/06/21 Unknown tablet (Vitamin C) aspirin 81 mg tablet,delayed 81 mg PO DAILY 12/06/21 12/06/21 Unknown release (Ecotrin Low Strength) cholecalciferol (vitamin D3) 25 0 mcg PO DAILY 12/06/21 12/06/21 Unknown mcg (1,000 unit) capsule (Vitamin D3) latanoprost 0.005 % eye drops 1 drp OPB HS 12/06/21 12/06/21 Unknown prednisone 10 mg tablet 15 mg PO DAILY 12/06/21 12/06/21 Unknown vitamin B complex 1 tab PO DAILY 12/06/21 12/06/21 Unknown vitamin E 400 unit tablet 0 mg PO DAILY 12/06/21 12/06/21 Unknown zinc 10 mg tablet 0 mg PO DAILY 12/06/21 12/06/21 Unknown Active Medications Generic Name Dose Route Start Last Admin Trade Name Freq PRN Reason Stop Dose Admin Atorvastatin Calcium 40 mg 12/06/21 09:37 12/06/21 12:52 Atorvastatin 40 Mg Tab PO 01/05/22 09:36 40 mg DAILY PAUL Administration Pantoprazole Sodium 40 mg/ 10 mls @ 5 mls/min 12/06/21 11:45 12/06/21 21:05 Syringe IV 01/05/22 11:44 5 mls/min BID PAUL Administration Latanoprost 1 drops 12/06/21 21:00 12/06/21 21:55 Latanoprost 0.005% Op Soln 2.5 Ml Btl OPB 01/05/22 20:59 1 drops HS PAUL Administration Prednisone 15 mg 12/06/21 09:37 12/06/21 12:52 Prednisone 5 Mg Tab PO 01/05/22 09:36 15 mg DAILY PAUL Administration Past Medical History Medical History 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 Diabetes Factor V Leiden mutation History of TIA (transient ischemic attack) HTN (hypertension) Pulmonary embolism TIA (transient ischemic attack) Past Family History Family History Mother Diabetes Stroke Father Myocardial infarction Stroke Denies family history of Ovarian cancer Prostate cancer Breast cancer Colorectal cancer Hypertension Past Surgical History Surgical History H/O: hysterectomy Social History Smoking Status: Never smoker Hx Alcohol Use: No Hx Substance Use: No substance use type: does not use Physical Exam Vital Signs Last Vital Signs Temp 36.8 C 12/07/21 07:45 Pulse 76 12/07/21 07:45 Resp 16 12/07/21 07:45 BP 118/73 12/07/21 07:45 Pulse Ox 96 12/07/21 07:45 Testing Laboratory Results 12/07/21 06:38 12/07/21 06:38 PT 11.3 Seconds (9.0-12.0) 12/07/21 06:38 INR 1.1 (0.9-1.1) 12/07/21 06:38 APTT 35.2 Seconds (21.0-31.0) H 12/06/21 13:02 Blood Type O Positive 12/06/21 03:20 Antibody Screen NEGATIVE 12/06/21 03:20 12/06/21 20:45 POC Glucose 107 H
[2021-12-07] MEDS: PANTOprazole 40 MG in SYRINGE 0 ML IV SCH (09:19)
--- NOTE | 2021-12-07 10:44 | History & Physical Bridge Note ---
Date of Service December 07, 2021 History & Physical Bridge Note I have examined the patient, reviewed the History & Physical and in the interval since the performance of the History & Physical I have noted the following changes of clinical significance: no changes noted. Patient's INR is 1.1 after Vitamin K. H/H is 9.2/27.9. She denies further melena. She has had 4 oz of water this morning as she was under the impression her EGD was at 4 PM. She continues on Protonix 40 mg BID. Discussed strict NPO status at this point and proceed with EGD around 12:30 today. Supervising Physician Co-Signing Physician Notes Agree with YAMINI King as above Abd: Soft, NT, ND, +BS Continue current therapy and supportive care Proceed with EGD now
[2021-12-07] MEDS ORDERED: PROPOFOL IV EMULSION 10 MG/ML 20 ML VIAL IV ONE (12:29)
[2021-12-07] MEDS ORDERED: LIDOCAINE 2% 2 ML VIAL/AMP(20MG/ML) INFIL ONE (12:29)
--- NOTE | 2021-12-07 13:25 | GI REPORT ---
Addendum Number: 1 Addendum Date: 02/17/2022 3:51:16 PM No specimens were collected during this procedure, and therefore, no pathology is pending. Ryan Naomie Bonds 02/17/2022 3:51:48 PM This report has been signed electronically. Patient Name: Katherine Navarro Procedure Date: 12/07/2021 12:55 PM Date of : 1945 Admit Type: Inpatient Age: 76 Gender: Female Attending MD: Ryan Bonds DO Procedure: Upper GI endoscopy Providers: Ryan Bonds DO Referring MD: Referred Self Indications: Melena Medicines: Monitored Anesthesia Care Complications: No immediate complications. Estimated Blood Loss: Estimated blood loss: none. Procedure: Pre-Anesthesia Assessment: - Prior to the procedure, a History and Physical was performed, and patient medications and allergies were reviewed. The patient's tolerance of previous anesthesia was also reviewed. The risks and benefits of the procedure and the sedation options and risks were discussed with the patient. All questions were answered, and informed consent was obtained. Prior Anticoagulants: The patient has taken Coumadin (warfarin), last dose was 2 days prior to procedure. ASA Grade Assessment: III - A patient with severe systemic disease. After reviewing the risks and benefits, the patient was deemed in satisfactory condition to undergo the procedure. After obtaining informed consent, the endoscope was passed under direct vision. Throughout the procedure, the patient's blood pressure, pulse, and oxygen saturations were monitored continuously. The Endoscope was introduced through the mouth, and advanced to the second part of duodenum. The upper GI endoscopy was accomplished without difficulty. The patient tolerated the procedure well. Findings: The esophagus was normal. A small hiatal hernia was present. Localized mild inflammation characterized by erythema was found in the gastric antrum. Biopsies were taken with a cold forceps for histology. The examined duodenum was normal. Impression: - Normal esophagus. - Small hiatal hernia. - Gastritis. Biopsied. - Normal examined duodenum. - There was no evidence of active or recent bleeding throughout the upper GI tract. Recommendation: - Return patient to [facility] for [facility] care. - Advance diet as tolerated. - Continue present medications. Ryansuzanna Bonds DO 12/07/2021 1:25:03 PM This report has been signed electronically. Note Initiated On: 12/07/2021 12:55 PM Number of Addenda: 1 I attest to the content of the Intraoperative Record and orders documented therein, exceptions below {[id number]}
[2021-12-07] MEDS ORDERED: GLUCOSE 40% GEL 15 GM TUBE PO PRN (13:42)
[2021-12-07] MEDS ORDERED: CARBOHYDRATES FOR HYPOGLYCEMIA PO PRN (13:42)
[2021-12-07] MEDS ORDERED: GLUCAGON FOR INJ 1 MG VIAL SQ PRN (13:42)
[2021-12-07] MEDS ORDERED: DEXTROSE 50% 50 ML SYRINGE IV PRN (13:42)
[2021-12-07] MEDS ORDERED: GLUCOSE 10 TABS/TUBE PO PRN (13:42)
--- NOTE | 2021-12-07 13:56 | Anesthesiology Progress Note ---
Date of Service December 07, 2021 Anesthesia Post Procedure Vital Signs Vital Signs: Temp Pulse Pulse Pulse Resp BP BP 12/07/21 13:40 80 16 114/63 12/07/21 13:25 82 16 122/67 12/07/21 13:10 87 16 112/46 L 12/07/21 11:53 36.5 C 93 H 18 125/72 125/72 12/07/21 11:14 36.9 C 88 20 126/72 12/07/21 07:45 36.8 C 76 16 118/73 12/07/21 07:25 76 12/07/21 04:04 36.6 C 75 14 115/68 12/06/21 23:39 81 12/06/21 22:40 36.5 C 77 18 104/58 L 12/06/21 19:52 37.1 C 85 20 110/69 12/06/21 18:38 87 12/06/21 18:03 36.9 C 98 H 20 134/71 Pulse Ox 12/07/21 13:40 98 12/07/21 13:25 97 12/07/21 13:10 100 12/07/21 11:53 99 12/07/21 11:14 100 12/07/21 07:45 96 12/07/21 07:25 12/07/21 04:04 99 12/06/21 23:39 12/06/21 22:40 96 12/06/21 19:52 97 12/06/21 18:38 12/06/21 18:03 100 Transfer of Care Handoff Completed per policy Notes Mental Status: alert / awake / arousable and participated in evaluation Nausea / Vomiting: adequately controlled Pain: adequately controlled Airway Patency, RR, SpO2: stable & adequate BP & HR: stable & adequate Hydration State: stable & adequate Anesthetic Complications: no major complications apparent and Pt Satisfied with anesthetic care
[2021-12-07] MEDS: ATORVASTATIN 40 MG TAB PO SCH (14:11)
[2021-12-07] MEDS: predniSONE 5 MG TAB PO SCH (14:11)
[2021-12-07] MEDS: INSULIN ASPART PER UNIT SC SCH ×2 (17:50→19:12)
[2021-12-07] MEDS: PANTOprazole 40 MG TAB PO SCH (21:22)
[2021-12-07] MEDS: LATANOPROST 0.005% OP SOLN 2.5 ML BTL OPB SCH (21:22)
--- NOTE | 2021-12-08 07:31 | Discharge Summary ---
Date of Service December 08, 2021 Admission HPI Per Admitting Provider 76 y/o F w/ PMHx of DM2, sarcoidosis, CHALO, HLD, adrenal suppression, factor V Leiden, TIA, chronic warfarin use who presents w/ weakness. Hb was 6.5 in the ED. INR 7.1. S/p 2u pRBC in the ED/ x 2 week of fatigue and mild lightheadedness, worsening. Also on baby ASA. Yesterday evening noted black tarry stool. Denies any prior hx of bleeds. Has never had endoscopy. INR goal 2- 3 per patient's PCP. Currently still feeling fatigued. 1st bag of prbcs still getting transfused. Had covid booster 2 weeks ago. ED course: Transfusing 2u prbc. Admission Exam Per Admitting Provider General: A&Ox4. NAD. Cooperative. HEENT: Atraumatic, normocephalic. EOMI. PERRL. Mildly pale mucous membranes of mouth and eyes. Pulm: Mostly CTAB. -wheezes, -rales, -rhonchi. No crackles at bases. Faint transient crackles at upper fernandez that were not audible on repeat exam; likely 2/2 sarcoidosis. No respiratory distress. Cardiac: TRR. Loud blowing 4/6 systolic murmur at pulmonic area, not new per patient. Radial pulses intact and symmetrical. DP pulses 2+ bilat. Minimal trace BLE. R ankle has notable swelling at medial mealleolus, unable to see the bone because of the swelling. Normal cap refill. Abdominal: Nontender, nondistended, soft. No increased erythema of either lower extremity. Neuro: CN II-XII intact. Strength and sensation of extremities intact. Principal Diagnosis acute blood loss anemia, gastritis Discharge Exam Constitutional WD/WN, vitals as above Respiratory normal respiratory effort, lungs clear to auscultation Cardiovascular RRR, no murmur, no edema Gastrointestinal (Abdomen) normal bowel sounds, soft, nontender, no hepatosplenomegaly Skin no rashes, warm and dry Psychiatric A+Ox3, euthymic affect Discharge Data Allergies Allergy/AdvReac Type Severity Reaction Status Date / Time chocolate flavor Allergy Unknown Headache Verified 12/07/21 11:52 Consultations 12/06/21 04:51 ED Decision to Admit Stat 12/06/21 09:37 Consult Gastroenterology Routine Procedures Performed Operation Date: 12/07/21 16:00 Actual Procedures p Esophagogastroduodenoscopy - Ryan Akbar Case, DO Hospital Course (1) Acute blood loss anemia: 76 yo F PMHx DM2, sarcoidosis, CHALO, HLD, adrenal suppression, Factor V Leiden on chronic warfarin, TIA admitted for supratherapeutic INR, and acute blood loss anemia from suspected upper GI bleed. Acute blood loss anemia, supratherapeutic INR, gastritis: - Hemoglobin of 6.5 on admission; increased to ~9 with 2u PRBCs. - Hgb decreased to 8.0 today; no bloody BMs, melanotic stools, other sources of bleeding. - EGD this admission showed gastritis, biopsies pending. - Continue BID PPI x6 weeks, and consider further use of PPI or H2 rojelio thereafter given aspirin and prednisone daily use. - Recommend CBC on Monday to ensure no further drop in Hgb. Supratherapeutic INR: - INR 7.1 on admission; subtherapeutic following administration of one-time dose vitamin K IV. - Will resume warfarin on discharge, 5mg daily with INR next week. Sarcoidosis: - Continue home steroids. DM2: - Continue home medications. Dispo: home with self care (2) Anticoagulant long-term use: (3) DM (diabetes mellitus), type 2: (4) Sarcoidosis: (5) Obstructive sleep apnea: (6) Hypercholesterolemia: (7) Adrenal suppression: (8) Hyponatremia: Total Time Total Time Spent Total Time Spent (In Minutes): see attending attestation Discharge Plan Discharge Items Patient Disposition: Home - Self-Care Reason For Visit: FATIGUE,ANEMIA Discharge Diagnosis: gastritis, anemia from GI bleeding Activity: Per Instructions section Non-emergency contact: Primary Care Provider Call non-emergency contact if: your symptoms worsen Follow-up/Referrals: Jessenia Dennis CRNP [Primary Care Provider] - 12/14/21 10:30 am Zack Peoples MD [Resident] - Diet: Low Fiber Ambulatory Orders: Hemoglobin and Hematocrit (Routine) Timeframe: 2 Days Location: Determined by Patient Ordered By: Susan Levy Attending Provider Instructions: You were admitted to the hospital for weakness and feeling unwell, and found to have an elevated INR, and a low blood count. You were given a blood transfusion and your blood count improved. You were also given medication to decrease your INR, because elevated INR can precipitate bleeding. You had an endoscopy which showed active gastritis, but no active ulcers or obvious other sources of bleeding. Your blood counts stayed stable and you continued to feel better, and you were felt to be safe for discharge home with the following recommendations: 1) You were started on a medication called a proton pump inhibitor. This will decrease the amount of acid in your stomach to decrease the likelihood of you having a GI bleed in the future. The medication is called Protonix (pantoprazole). You will take it every 12 hours for the next 6 weeks, then decrease to once daily. This medication was sent to [facility]. 2) We have changed your warfarin dosing to 5 milligrams once daily. You can start this on day of discharge. You should have your INR level checked in 1 week to see if you are between 2-3, which is your therapeutic level. 3) You should talk to your doctor about considering starting a medication called an H2 rojelio, or Pepcid. This is another medication that can help decrease the acid in your stomach and prevent ulcers. We did not start this on discharge. 4) We want you to have your bloodwork checked on Monday to look at your blood count, to make sure it stays stable. If you have any further episodes of dark black tarry stools, bloody stools, please call your doctor to be urgently evaluated. Please also seek urgent evaluation if you have shortness of breath or chest pain. Pending Studies at Discharge: Yes (Biopsies from EGD) Stand-Alone Forms: [facility], Smoking Cessation Medications and DC Order Prescriptions: New pantoprazole 40 mg Tablet,Delayed Release (Dr/Ec) 40 mg PO BID 30 Days Qty: 60 RF: 0 pantoprazole 40 mg tablet,delayed release (DR/EC) 40 mg PO BID 30 Days Qty: 60 RF: 0 Continued atorvastatin 40 mg tablet 40 mg PO DAILY Qty: 90 RF: 3 metformin [Glucophage] 1,000 mg tablet 1,000 mg PO BID Qty: 180 RF: 3 albuterol sulfate 90 mcg/actuation HFA aerosol inhaler See Rx Instructions inhalation .COMPLEX PRN (Reason: Shortness Of Breath Or Wheezing) RF: 0 (DME) OneTouch Verio test strips strip See Dose Instructions .ROUTE .MEDSUPPLY Qty: 10 RF: 0 (DME) oxygen-air delivery systems device See Dose Instructions .ROUTE .MEDSUPPLY Qty: 1 RF: 0 latanoprost 0.005 % drops 1 drp OPB HS RF: 0 ascorbic acid (vitamin C) [Vitamin C] 1,000 mg Tablet 1 g PO DAILY RF: 0 vitamin E 400 unit Tablet 0 mg PO DAILY RF: 0 vitamin B complex Tablet 1 tab PO DAILY RF: 0 zinc 10 mg Tablet 0 mg PO DAILY RF: 0 cholecalciferol (vitamin D3) [Vitamin D3] 25 mcg (1,000 unit) Capsule 0 mcg PO DAILY RF: 0 prednisone 10 mg tablet 15 mg PO DAILY RF: 0 aspirin [Ecotrin Low Strength] 81 mg tablet,delayed release (DR/EC) 81 mg PO DAILY RF: 0 Changed warfarin 5 mg tablet See Rx Instructions mg .ROUTE .COMPLEX Qty: 30 RF: 3 Discharge Orders: Discharge Order (Routine); Ordered 12/08/21 Ordered By: Susan Sue Admission Data Admit Date/Time: 12/06/21 07:18 Attending Provider: Rose Yap Admit Provider: Solitario Pelayo Primary Care Provider: Jessenia Dennis Other Providers: Otis Avila ; Aniket Mayorga Other Interventions: Discharge Summary Assessment (RN) Last Done: 12/08/21 12:34 Supervising Physician Co-Signing Physician Notes Patient seen and examined with PGY-3 Dr. Sue. Agree with history, exam findings, assessment and plan of care as outlined. In brief, Ms. Navarro is a 76 year old female with history of DM, sarcoidosis on chronic steroids, Factor V Leiden (AC with coumadin) admitted with supratherapeutic INR and GI bleed. Feeling well today. No complaints. No dark stool or abdominal pain. VS and nursing notes reviewed. Pale appearing. Regular rhythm. Lungs are clear to auscultation in all lung fernandez. Abdomen with good bowel sounds. Soft, non-tender. Rectal exam deferred. Labs and imaging reviewed. 1. Acute blood loss anemia secondary to supratherapeutic INR and GI bleed. s/p 2 units PRBCs and hgb up to 8.0 today 2. GI bleed. Likely upper GI given hx of melena. No further bleeding today. PPI BID x 6 weeks. EGD with evidence of gastritis. No evidence of active or recent bleed in the upper GI tract. Consider long-term PPI or H2 rojelio given the long-term prednisone and ASA. Slight drop in hgb on the day of discharge, but no further bleeding. Repeat CBC on Monday. 3. Supratherapeutic INR. S/p Vitamin K IV. INR 7.12.1. Restarting couma din at 5mg. Will need repeat INR next week. Discussed possibility of home INR monitoring systems like the one through [employer]. She can discuss with her PCP to get that set up if she would like to do that. Other chronic issues are stable, home medications continued. Dispo: Discharge home today. I personally spent 25 minutes discharge planning for this patient. Resident Activity Tracking Resident Involvement: Resident Care Provided Care Provided: Adult Hospital Medicine
[2021-12-08 08:00] LABS: Basophils # (auto) 0.05 K/uL (0-0.2); Basophils % (auto) 0.6 %; Eosinophils # (auto) 0.11 K/uL (0-0.5); Eosinophils % (auto) 1.4 %; Hematocrit (blood only) 24.6 % (37-47); Immature Granulocytes # (auto) 0.04 K/uL (0.00-0.02); Immature Granulocytes % (auto) 0.5 %; Lymphocytes # (auto) 1.62 K/uL (1.2-3.4); Lymphocytes % (auto) 20.1 %; Mean Corpuscular Hgb Conc 32.5 g/dL (32-36); Mean Corpuscular Volume 89.1 fL (80-100); Mean Platelet Volume 9.2 fL (7.4-10.4); Monocytes # (auto) 0.77 K/uL (0.11-0.59); Monocytes % (auto) 9.6 %; Neutrophils # (auto) 5.45 K/uL (1.4-6.5); Neutrophils % (auto) 67.8 %; Platelet Count 191 K/uL (130-400); RDW Coefficient of Variation 16.8 % (11.5-14.5); RDW Standard Deviation 52.4 fL (36.4-46.3); Red Blood Count 2.76 M/uL (4.2-5.4); White Blood Count 8.04 K/uL (4.8-10.8)
[2021-12-08] MEDS: ATORVASTATIN 40 MG TAB PO SCH (09:00)
[2021-12-08] MEDS: PANTOprazole 40 MG TAB PO SCH (09:00)
[2021-12-08] MEDS: predniSONE 5 MG TAB PO SCH (09:00)
[2021-12-08] MEDS: INSULIN ASPART PER UNIT SC SCH ×2 (09:03→12:20)
--- NOTE | 2021-12-13 20:34 | Billing Data ---
Date of Service December 13, 2021 Coding Level of Care Code 07667 Initial Inpt Care Lvl 3
--- NOTE | 2022-02-16 10:59 | Coding Query ---
CODING CLARIFICATION The EGD performed on 12/07/21 states that biopsies were taken. There is no pathology report in EMR and one could not be located by the pathology lab. Please provide further clarification for accurate coding assignment below: ( ) Biopsies were performed during this EGD (X) Biopsies were not performed during this EGD: Will make addendum on report. ( ) Other, please clarify: Thank you for your assistance, Pari Castillo - Welder/Fitter [facility]
== END 2021-12-08 13:00 | disposition home or self-care (01) ==
LOC: ED 01:48 → EDINP 01:48 → SUATTDRO 07:18 → 2N 09:38

== ENCOUNTER 2022-04-11 15:28 | Inpatient (IN) ==
[2022-04-11] MEDS ORDERED: ASPIRIN CHEW 324 MG PO STA (15:51)
[2022-04-11] MEDS ORDERED: ALBUT/IPRATROP 3MG/0.5MG NEB 3 ML VIAL NEB STA (16:01)
[2022-04-11 16:15] LABS: Basophils # (auto) 0.05 K/uL (0-0.2); Basophils % (auto) 0.4 %; Eosinophils # (auto) 0.03 K/uL (0-0.5); Eosinophils % (auto) 0.3 %; Hemoglobin 11.3 g/dL (12.0-16.0); Immature Granulocytes # (auto) 0.04 K/uL (0.00-0.02); Immature Granulocytes % (auto) 0.3 %; Lymphocytes # (auto) 0.85 K/uL (1.2-3.4); Lymphocytes % (auto) 7.3 %; Mean Corpuscular Hemoglobin 26.5 pg (25-34); Mean Corpuscular Hgb Conc 31.4 g/dL (32-36); Mean Corpuscular Volume 84.5 fL (80-100); Mean Platelet Volume 9.6 fL (7.4-10.4); Monocytes # (auto) 0.94 K/uL (0.11-0.59); Neutrophils # (auto) 9.81 K/uL (1.4-6.5); Neutrophils % (auto) 83.7 %; Platelet Count 262 K/uL (130-400); RDW Coefficient of Variation 18.8 % (11.5-14.5); RDW Standard Deviation 58.7 fL (36.4-46.3); Red Blood Count 4.26 M/uL (4.2-5.4); White Blood Count 11.72 K/uL (4.8-10.8)
[2022-04-11 16:31] LABS: INR 2.3 (0.9-1.1); Partial Thromboplastin Ratio 1.5; Partial Thromboplastin Time 42.1 Seconds (21.0-31.0); Prothrombin Time 23.6 Seconds (9.0-12.0)
--- NOTE | 2022-04-11 16:32 | XRay Report ---
XR chest 1V portable CLINICAL HISTORY: Atypical chest pain TECHNIQUE: Single frontal radiograph of the chest was obtained. Comparison: Comparison is made to chest radiographs 03/25/2022 FINDINGS: No lines and tubes are seen. The cardiomediastinal silhouette is normal. Reticular interstitial opaci ties are seen. Interval improvement in bilateral pleural effusions. IMPRESSION: 1. Interval improvement in bilateral pleural effusions. 2. Improvement in previously noted peribronchial cuffing. Reticular interstitial opacities are again seen which may represent fibrotic changes. ACT 112: Negative or not required by law. Electronically signed by: Catrachito Beltran M.D. 04/11/2022 4:29 PM
[2022-04-11 16:40] LABS: Troponin I High Sensitivity 13.5 pg/ml (0-14)
[2022-04-11 16:43] LABS: BUN Creatinine Ratio 18.8 (10-20); Creatinine Clr Calc Pharmacy 74.8 ml/min; Est GFR (African American) 108.9 ml/min; Potassium 4.7 mmol/L (3.5-5.1)
[2022-04-11 17:13] LABS: Base Excess VBG 4.2 mEq/L; HCO3 VBG 29 mmol/L; PCO2 VBG 46 mmHg (38-50); PO2 VBG 59 mmHg; pH VBG 7.42 (7.36-7.41)
[2022-04-11 17:14] LABS: Oxygen Saturation VBG < 60.0 %
[2022-04-11 17:18] LABS: Influenza A virus by PCR Negative (Neg); Influenza B virus by PCR Negative (Neg); RSV by PCR Negative (Neg); SARS CoV2 RNA(COVID-19) InHosp NEGATIVE (Negative)
[2022-04-11] MEDS ORDERED: FUROSEMIDE 40 MG/4 ML VIAL IV ONE (17:27)
[2022-04-11] MEDS ORDERED: NITROGLYCERIN SL 0.4 MG/TAB TAB SL STA (17:27)
[2022-04-11] MEDS ORDERED: MoRPHine SULFATE 2 MG/ML CARP IV STA (18:02)
[2022-04-11] MEDS ORDERED: fentaNYL citrate 100 MCG/2 ML VIAL IV ONE (18:05)
--- NOTE | 2022-04-11 19:12 | Emergency Department Note ---
History of Present Illness General Chief Complaint: Chest Pain Time Seen by Provider: 04/11/22 15:37 History of Present Illness Provider Complaint: chest pain Onset (ago): week(s) Onset (Weeks): 1 Duration: intermittent Onset: during rest Pain Location: substernal Pain Radiation: none Severity: moderate Maximum Pain Intensity: 8 Current Pain Intensity: 8 Quality: + aching, + sharp and + dull Relieved By: + nitroglycerin and + medication-other (husbands albuterol) Exacerbated By: + exertion Context: + recent illness (patient recently had pneumonia and feels similar to that); no recent surgery, no recent immobilization, no recent travel, no trauma/injury, no new medications or no history of DVT/PE Associated symptoms: + dyspnea; no nausea, no vomiting, no diaphoresis, no syncope, no palpitations, no fever, no cough or no leg swelling Home Medications Medication Instructions Recorded Confirmed Type albuterol sulfate 90 mcg/actuation See Rx Instructions INHALATION 05/30/19 03/24/22 History aerosol inhaler .COMPLEX PRN gm ascorbic acid (vitamin C) 1,000 mg 1 g PO DAILY 12/06/21 03/24/22 History tablet (Vitamin C) aspirin 81 mg tablet,delayed 81 mg PO DAILY 12/06/21 03/24/22 History release (Ecotrin Low Strength) latanoprost 0.005 % eye drops 1 drp OPB HS 12/06/21 03/24/22 History vitamin B complex 1 tab PO DAILY 12/06/21 03/24/22 History vitamin E 400 unit tablet 0 mg PO DAILY 12/06/21 03/24/22 History warfarin 5 mg tablet See Rx Instructions .ROUTE 12/08/21 03/24/22 Rx .COMPLEX #30 tab cholecalciferol (vitamin D3) 25 1,000 unit PO DAILY cap 12/14/21 03/24/22 History mcg (1,000 unit) capsule (Vitamin D3) zinc 10 mg tablet 10 mg PO DAILY tab 12/14/21 03/24/22 History ferrous sulfate 324 mg (65 mg 324 mg PO DAILY #30 tab 01/18/22 03/24/22 Rx iron) tablet,delayed release blood sugar diagnostic (OneTouch #100 ea 03/01/22 03/24/22 Rx Verio test strips) blood sugar diagnostic (OneTouch #200 ea 03/01/22 03/24/22 Rx Verio test strips) pantoprazole 40 mg tablet,delayed 40 mg PO DAILY 90 Days #90 tab 03/01/22 03/24/22 Rx release atorvastatin 40 mg tablet 40 mg PO DAILY #90 tab 03/23/22 03/24/22 Rx metformin 1,000 mg tablet 1,000 mg PO BID #180 tab 03/23/22 03/24/22 Rx doxycycline monohydrate 100 mg 100 mg PO BID #14 cap 03/25/22 Rx capsule prednisone 10 mg tablet 10 mg PO DAILY #135 tab 04/04/22 Rx furosemide 20 mg tablet 10 mg PO DAILY #5 tab 04/08/22 Rx Allergies Allergy/AdvReac Type Severity Reaction Status Date / Time chocolate flavor Allergy Unknown Headache Verified 04/11/22 19:10 Past Med/Surg History Medical History 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 Diabetes Diabetes Factor V Leiden mutation GI (gastrointestinal bleed) History of TIA (transient ischemic attack) HTN (hypertension) Pulmonary embolism TIA (transient ischemic attack) Surgical History H/O: hysterectomy Family History Mother Diabetes Stroke Father Myocardial infarction Stroke Denies family history of Ovarian cancer Prostate cancer Breast cancer Colorectal cancer Hypertension Social History Smoking Status: Unknown if ever smoked Second Hand Exposure: No; Hx Alcohol Use: No Hx Substance Use: No Preferred Language: Japanese Communication Ability: Effective Visual Impairment: No Limitations Justice Professor Required: No Beliefs That Will Affect Care: None marital status: Current Living Situation: Spouse current occupational status: retired How many Children do You have: 4 Feels Safe at Home: Yes Childhood Exposure to Second-Hand Smoke: No caffeine: Yes Dental Care, Regularly: No Physical Activity Frequency: Daily Seatbelt Use: always Sunscreen Use: Yes Assistive Devices: Glasses Review of Systems A total of 10 systems reviewed and were otherwise negative Physical Exam Vital Signs Vital Signs - 24 hr 04/11/22 15:39 04/11/22 16:16 04/11/22 17:26 Temperature 37.6 C H Temperature Source Oral Pulse Rate 121 H 112 H Pulse Rate [Apical] 112 H 109 H Pulse Rhythm [Apical] Regular Regular Pulse Strength [Apical] Respiratory Rate 28 H 23 Respiratory Effort / Characteristics Short of Breath Respiratory Depth Normal Respiratory Pattern Blood Pressure 154/106 H Blood Pressure [Left Arm] Blood Pressure Mean 122 Blood Pressure Mean [Left Arm] Pulse Oximetry 96 96 94 Oxygen Delivery Method Room Air Room Air Room Air Sepsis Recent Fever Within 48 Hours Yes Sepsis New/Unexplained Change in Mental Status No Sepsis Action Taken by Nursing No Action Required 04/11/22 18:03 04/11/22 18:15 Temperature Temperature Source Pulse Rate Pulse Rate [Apical] 108 H 115 H Pulse Rhythm [Apical] Regular Pulse Strength [Apical] Normal Respiratory Rate 24 20 Respiratory Effort / Characteristics Non-Labored Spontaneous Respiratory Depth Normal Normal Respiratory Pattern Regular Blood Pressure Blood Pressure [Left Arm] 88/69 L 116/74 Blood Pressure Mean Blood Pressure Mean [Left Arm] 75 88 Pulse Oximetry 92 92 Oxygen Delivery Method Room Air Room Air Sepsis Recent Fever Within 48 Hours Sepsis New/Unexplained Change in Mental Status Sepsis Action Taken by Nursing Physical Exam GENERAL: She is oriented to person, place, and time. She appears well-developed and well-nourished. She does not appear distressed. HENT: Exam performed. -Head: Normocephalic and atraumatic. -Right Ear: External ear normal. No mastoid tenderness. -Left Ear: External ear normal. No mastoid tenderness. -Mouth/Throat: The oropharynx is clear and moist. No trismus in the jaw. No dental abscesses or uvula swelling. No oropharyngeal exudate or tonsillar abscesses. EYES: Conjunctivae and EOM are normal. Pupils are equal, round, and reactive to light. Right eye exhibits no discharge. Left eye exhibits no discharge. No scleral icterus. NECK: Normal range of motion. Neck supple. No JVD present. No spinous process tenderness present. No carotid bruit present. No rigidity. No tracheal deviation and normal range of motion present. No Brudzinski's sign and no Kernig's sign n oted. CV: Tachycardic rate, regular rhythm, murmur present. Intact distal pulses. Palpable radial pulses bue. PULM/CHEST: Faint expiratory wheezes bilaterally with inspiratory rales at the bases. Rhonchi bilaterally. -Chest Wall: She exhibits no tenderness. ABD: The abdomen is soft. Bowel sounds are normal. She has no distension. No mass is present. There is no tenderness. There is no rebound, no guarding, no Hobson's sign and no tenderness at McBurney's point. Rovsig negative MUSC/SKEL: Normal range of motion. There is no tenderness or deformity. 3+ pitting edema of the bilateral lower extremities. LYMPH: No cervical adenopathy. NEURO: She is alert and oriented to person, place, and time. She has normal strength. No cranial nerve deficit or sensory deficit. Coordination and gait no rmal. GCS eye subscore is 4. GCS verbal subscore is 5. GCS motor subscore is 6. Cerebellar tests wnl. SKIN: Skin is warm and dry. She is not diaphoretic. PSYCH: She has a normal mood and affect. Behavior is normal. Judgment and thought content normal. Course Course 1536: The patient was evaluated in room B3. A complete history and physical exam was performed Cardiac monitoring: An order was placed for continuous cardiac monitoring. The monitor shows a rate of 110 with sinus tachycardia rhythm 1814: Vital signs stable. Labs show therapeutic INR of 2.3. BNP 842. COVID- negative. Troponin negative Chest x-ray shows interval improvement of the bilateral pleural effusion. [facility] have been [facility] by case managment. Patient treated with Lasix 40 mg given her chest x-ray and BNP elevation as well as her chief complaint of shortness of breath. Administered Medications Discontinued Medications Albuterol (Albut/Ipratrop 3mg/0.5mg Neb 3 Ml Vial) 3 ml NEB NOW STA; Protocol Stop: 04/11/22 16:02 Last Admin: 04/11/22 16:13 Dose: 3 ml Documented by: [id number] Aspirin (Aspirin Chew 324 Mg) 324 mg PO NOW STA Stop: 04/11/22 15:52 Last Admin: 04/11/22 15:57 Dose: Not Given Documented by: [id number] Fentanyl Citrate (Fentanyl Citrate 100 Mcg/2 Ml Vial) 25 mcg IV NOW ONE Stop: 04/11/22 18:06 Last Admin: 04/11/22 18:21 Dose: 25 mcg Documented by: [id number] Furosemide (Furosemide 40 Mg/4 Ml Vial) 40 mg IV ONE ONE Stop: 04/11/22 17:28 Last Admin: 04/11/22 17:46 Dose: 40 mg Documented by: [id number] Morphine Sulfate (Morphine Sulfate 2 Mg/Ml Carp) 2 mg IV NOW STA Stop: 04/11/22 18:03 Last Admin: 04/11/22 18:14 Dose: Not Given Documented by: [id number] Nitroglycerin (Nitroglycerin Sl 0.4 Mg/Tab Tab) 0.4 mg SL NOW STA Stop: 04/11/22 17:28 Last Admin: 04/11/22 17:47 Dose: 0.4 mg Documented by: [id number] Medical Decision Making Laboratory Data Result diagrams: 04/11/22 15:35 04/11/22 15:35 Labs: Lab Results 04/11/22 04/11/22 04/11/22 Range/Units 15:35 15:35 15:35 WBC 11.72 H (4.8-10.8) K/uL RBC 4.26 (4.2-5.4) M/uL Hgb 11.3 L (12.0-16.0) g/dL Hct 36.0 L (37-47) % MCV 84.5 (80-100) fL MCH 26.5 (25-34) pg MCHC 31.4 L (32-36) g/dL RDW Std Deviation 58.7 H (36.4-46.3) fL RDW Coeff of Manjula 18.8 H (11.5-14.5) % Plt Count 262 (130-400) K/uL MPV 9.6 (7.4-10.4) fL Immature Gran % (Auto) 0.3 % Neut % (Auto) 83.7 % Lymph % (Auto) 7.3 % Hyde % (Auto) 8.0 % Eos % (Auto) 0.3 % Baso % (Auto) 0.4 % Neut # (Auto) 9.81 H (1.4-6.5) K/uL Lymph # (Auto) 0.85 L (1.2-3.4) K/uL Hyde # (Auto) 0.94 H (0.11-0.59) K/uL Eos # (Auto) 0.03 (0-0.5) K/uL Baso # (Auto) 0.05 (0-0.2) K/uL Immature Gran # (Auto) 0.04 H (0.00-0.02) K/uL PT 23.6 H (9.0-12.0) Seconds INR 2.3 H (0.9-1.1) APTT 42.1 H (21.0-31.0) Seconds PTT Ratio 1.5 VBG pH (7.36-7.41) VBG pCO2 (38-50) mmHg VBG pO2 mmHg VBG HCO3 mmol/L VBG O2 Saturation % VBG Base Excess mEq/L Barometric Pressure mm/Hg Sodium 132 L (136-145) mmol/L Potassium 4.7 (3.5-5.1) mmol/L Chloride 99 (98-107) mmol/L Carbon Dioxide 25 (21-32) mmol/L Anion Gap 8 (3-11) BUN 9 (6-23) mg/dl Creatinine 0.48 L (0.6-1.2) mg/dl Est Cr Clr Drug Dosing 74.8 ml/min Est GFR ( Amer) 108.9 ml/min Est GFR (Non-Af Amer) 94.0 ml/min BUN/Creatinine Ratio 18.8 (10-20) Glucose 101 H (70-99(Fasting)) mg/dl Calcium 9.0 (8.5-10.1) mg/dl Troponin I High Sens 13.5 (0-14) pg/ml B-Natriuretic Peptide (0-100) pg/ml Lipase 27 (11-82) U/L SARS-CoV-2 (PCR) (Negative) Influenza Type A (PCR) (Neg) Influenza Type B (PCR) (Neg) RSV (RT-PCR) (Neg) 04/11/22 04/11/22 04/11/22 Range/Units 16:05 16:34 16:43 WBC (4.8-10.8) K/uL RBC (4.2-5.4) M/uL Hgb (12.0-16.0) g/dL Hct (37-47) % MCV (80-100) fL MCH (25-34) pg MCHC (32-36) g/dL RDW Std Deviation (36.4-46.3) fL RDW Coeff of Manjula (11.5-14.5) % Plt Count (130-400) K/uL MPV (7.4-10.4) fL Immature Gran % (Auto) % Neut % (Auto) % Lymph % (Auto) % Hyde % (Auto) % Eos % (Auto) % Baso % (Auto) % Neut # (Auto) (1.4-6.5) K/uL Lymph # (Auto) (1.2-3.4) K/uL Hyde # (Auto) (0.11-0.59) K/uL Eos # (Auto) (0-0.5) K/uL Baso # (Auto) (0-0.2) K/uL Immature Gran # (Auto) (0.00-0.02) K/uL PT (9.0-12.0) Seconds INR (0.9-1.1) APTT (21.0-31.0) Seconds PTT Ratio VBG pH 7.42 H (7.36-7.41) VBG pCO2 46 (38-50) mmHg VBG pO2 59 mmHg VBG HCO3 29 mmol/L VBG O2 Saturation < 60.0 % VBG Base Excess 4.2 mEq/L Barometric Pressure 732.8 mm/Hg Sodium (136-145) mmol/L Potassium (3.5-5.1) mmol/L Chloride (98-107) mmol/L Carbon Dioxide (21-32) mmol/L Anion Gap (3-11) BUN (6-23) mg/dl Creatinine (0.6-1.2) mg/dl Est Cr Clr Drug Dosing ml/min Est GFR ( Amer) ml/min Est GFR (Non-Af Amer) ml/min BUN/Creatinine Ratio (10-20) Glucose (70-99(Fasting)) mg/dl Calcium (8.5-10.1) mg/dl Troponin I High Sens (0-14) pg/ml B-Natriuretic Peptide 842 H (0-100) pg/ml Lipase (11-82) U/L SARS-CoV-2 (PCR) NEGATIVE (Negative) Influenza Type A (PCR) Negative (Neg) Influenza Type B (PCR) Negative (Neg) RSV (RT-PCR) Negative (Neg) Imaging Data Chest x-ray: Radiologist's impression: Chest X-Ray 04/11/22 15:51 XR chest 1V portable CLINICAL HISTORY: Atypical chest pain TECHNIQUE: Single frontal radiograph of the chest was obtained. Comparison: Comparison is made to chest radiographs 03/25/2022 FINDINGS: No lines and tubes are seen. The cardiomediastinal silhouette is normal. Reticular interstitial opacities are seen. Interval improvement in bilateral pleural effusions. IMPRESSION: 1. Interval improvement in bilateral pleural effusions. 2. Improvement in previously noted peribronchial cuffing. Reticular interstitial opacities are again seen which may represent fibrotic changes. ACT 112: Negative or not required by law. Electronically signed by: Catrachito Beltran M.D. 04/11/2022 4:29 PM ECG Data Indication: chest pain and SOB/dyspnea Rate (beats per minute): 117 Rhythm: normal sinus Findings: + RBBB; no ST depression, no ST elevation or no prolonged QT MDM Narrative Vital signs stable. Labs show therapeutic INR of 2.3. BNP 842. COVID- negative. Troponin negative Chest x-ray shows interval improvement of the bilateral pleural effusion. [facility]. They have been notified by case managment. Patient treated with Lasix 40 mg given her chest x-ray and BNP elevation as well as her chief complaint of shortness of breath. Impression & Plan Chest pain, CHF exacerbation Discharge Plan Visit Data Chief Complaint: Chest Pain Discharge Problem: Chest pain, CHF exacerbation Patient Disposition: Being Evaluated by Hospitalist Forms Stand Alone Forms: My [facility] Prescriptions Prescriptions: No Action (DME) OneTouch Verio test strips Strip See Rx Instructions .Route Qty: 200 RF: 3 pantoprazole 40 mg tablet,delayed release (DR/EC) 40 mg PO DAILY 90 Days Qty: 90 RF: 3 (DME) OneTouch Verio test strips Strip See Dose Instructions .ROUTE .MEDSUPPLY Qty: 100 RF: 3 metformin 1,000 mg tablet 1,000 mg PO BID Qty: 180 RF: 3 atorvastatin 40 mg tablet 40 mg PO DAILY Qty: 90 RF: 3 doxycycline monohydrate 100 mg capsule 100 mg PO BID Qty: 14 RF: 0 prednisone 10 mg tablet 10 mg PO DAILY Qty: 135 RF: 3 furosemide 20 mg tablet 10 mg PO DAILY Qty: 5 RF: 0 albuterol sulfate 90 mcg/actuation HFA aerosol inhaler See Rx Instructions inhalation .COMPLEX PRN (Reason: Shortness Of Breath Or Wheezing) RF: 0 ferrous sulfate 324 mg (65 mg iron) tablet,delayed release (DR/EC) 324 mg PO DAILY Qty: 30 RF: 4 latanoprost 0.005 % drops 1 drp OPB HS RF: 0 ascorbic acid (vitamin C) [Vitamin C] 1,000 mg Tablet 1 g PO DAILY RF: 0 vitamin E 400 unit Tablet 0 mg PO DAILY RF: 0 vitamin B complex Tablet 1 tab PO DAILY RF: 0 aspirin [Ecotrin Low Strength] 81 mg tablet,delayed release (DR/EC) 81 mg PO DAILY RF: 0 warfarin 5 mg tablet See Rx Instructions mg .ROUTE .COMPLEX Qty: 30 RF: 3 cholecalciferol (vitamin D3) [Vitamin D3] 25 mcg (1,000 unit) capsule 1,000 unit PO DAILY RF: 0 zinc 10 mg tablet 10 mg PO DAILY RF: 0 Referrals Referrals: Jessenia Dennis CRNP [Primary Care Provider] -
[2022-04-11] MEDS ORDERED: predniSONE 20 MG TAB PO STA (19:20)
--- NOTE | 2022-04-11 19:24 | History & Physical Report ---
Date of Service April 11, 2022 Assessment & Plan (1) Dyspnea: Plan: Patient presents with dyspnea that appears to have been on-going but now associated with chest pain DDX: PNA vs. Sarcoidosis flare vs. CHF exacerbation - or combination of these - As her chest pain is more with inspiration and pleuritic sounding in nature favor sarcoid flare - Prednisone will increase to 40mg po daily- 30mg now as she took her 10mg this morning - 40mg Of IV Lasix administered 1730 - will re-dose in AM - Will add on PCT, CRP, ESR- mild elevation WBC and NLR- Add Rocephin 1GM IV now and daily- continue with Doxy (2) Acute diastolic CHF (congestive heart failure): Plan: HFpEF with acute exacerbation likely secondary to stopping lasix - BNP eelvated - As above continue with IV Lasix in morning- Lasix just administered- goal would be 500-750 ml off tonight (3) Pleuritic chest pain: Plan: Worsens with inspiration and coughing - Initial HScTNI is negative - recheck- 18- will follow 6 hour HScTNI- currently elevated likely to HR elecvation secondary to dyspnea - ECG is tachycardic with likely related changes - follow - Treat as above (4) Sarcoidosis: Plan: On chronic prednisone therapy - 10mg/day (5) Aortic stenosis: Plan: As above - last ECHO 2018 mild to moderate- now severe - optimize fluid volume status follow symptoms consider cardiology consultation (6) DM (diabetes mellitus), type 2: Plan: Hold Metformin - Transition to insulin sliding scale (7) Obstructive sleep apnea: Plan: CPAP 4cm H20 nightly (8) Hypercholesterolemia: Plan: Continue Atorvastatin 40mg po daily (9) Factor V Leiden mutation: Plan: Continue Coumadin- daily INR (10) History of TIA (transient ischemic attack): (11) Hyponatremia: History of Present Illness Primary Care Provider: RASHI Stanford 76 YOF with medical history of: Aortic Stenosis, TIA, DM II, Factor V Leiden mutation(on Coumadin), Sarcoidosis, gastritis with UGIB, CHALO (CPAP 4). Patient comes to the EMD today for complaints of 2 day history of chest pain and dy spnea. Patient reports that she was diagnosed with "pneumonia" earlier in the month- she was started on Doxycycline had ECHO and CXR performed on [id number]. She also endorses that she had her lasix stopped at that time, and since then she has continued to feel short of breath and congested. Her ECHO at that time was notable for severe aortic stenosis and severe mitral annular calcification resulting in severe MR with stenosis. Her chest discomfort is at the center of her chest and feels worse when she breaths in and or coughs. She thinks it may worsen with position changes, but is not certain. She describes can't give a good descriptor of the pain type. In the EMD the patient had routine labs done to include HScTNI, BNP, CXR and ECG. For her complaints of chest discomfort she was given asa 324mg, nitroglycerine, morphine and fentanyl. Her initial HScTNI was 13.5. The patient remains therapeutic with her Warfarin and denies missing dose. She remains dyspneic with cough, and inspiratory expiratory wheezing. Patient will be observed for her chest pain and dyspnea. Will recheck her HScTNI >2 hour after initial, PCT, CRP, ESR. COVID/FLU/RSV: NEGATIVE on admission Allergies Allergy/AdvReac Type Severity Reaction Status Date / Time chocolate flavor Allergy Unknown Headache Verified 04/11/22 19:10 Home Medications Medication Instructions Recorded Confirmed Type albuterol sulfate 90 mcg/actuation 1 inh INHALATION Q4H PRN gm 05/30/19 04/11/22 History aerosol inhaler ascorbic acid (vitamin C) 1,000 mg 1 g PO DAILY 12/06/21 04/11/22 History tablet (Vitamin C) aspirin 81 mg tablet,delayed 81 mg PO DAILY 12/06/21 04/11/22 History release (Ecotrin Low Strength) latanoprost 0.005 % eye drops 1 drp OPB HS 12/06/21 04/11/22 History vitamin B complex 1 tab PO DAILY 12/06/21 04/11/22 History vitamin E 400 unit tablet 0 mg PO DAILY 12/06/21 04/11/22 History cholecalciferol (vitamin D3) 25 1,000 unit PO DAILY cap 12/14/21 04/11/22 History mcg (1,000 unit) capsule (Vitamin D3) zinc 10 mg tablet 10 mg PO DAILY tab 12/14/21 04/11/22 History ferrous sulfate 324 mg (65 mg 324 mg PO DAILY #30 tab 01/18/22 04/11/22 Rx iron) tablet,delayed release blood sugar diagnostic (OneTouch #100 ea 03/01/22 03/24/22 Rx Verio test strips) blood sugar diagnostic (OneTouch #200 ea 03/01/22 03/24/22 Rx Verio test strips) pantoprazole 40 mg tablet,delayed 40 mg PO DAILY 90 Days #90 tab 03/01/22 04/11/22 Rx release atorvastatin 40 mg tablet 40 mg PO DAILY #90 tab 03/23/22 04/11/22 Rx prednisone 10 mg tablet 10 mg PO DAILY #135 tab 04/04/22 04/11/22 Rx Past Med/Surg History Medical History 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 Diabetes Factor V Leiden mutation GI (gastrointestinal bleed) History of TIA (transient ischemic attack) HTN (hypertension) Pulmonary embolism TIA (transient ischemic attack) Surgical History H/O: hysterectomy Family History Mother Diabetes Stroke Father Myocardial infarction Stroke Denies family history of Ovarian cancer Prostate cancer Breast cancer Colorectal cancer Hypertension Social History Smoking Status: Smoker, status unknown Second Hand Exposure: No; Hx Alcohol Use: No Hx Substance Use: No Preferred Language: Palestinian Communication Ability: Effective Visual Impairment: No Limitations Plaster Die Maker Required: No Beliefs That Will Affect Care: None marital status: Current Living Situation: Spouse current occupational status: retired How many Children do You have: 4 Feels Safe at Home: Yes Childhood Exposure to Second-Hand Smoke: No caffeine: Yes Dental Care, Regularly: No Physical Activity Frequency: Daily Seatbelt Use: always Sunscreen Use: Yes Assistive Devices: None Review of Systems Review of Systems: REVIEW OF SYSTEMS: Constitutional: No fever, sweats or chills Eyes: No diplopia, no worsening or blurred vision ENT: normal hearing, no trouble swallowing Respiratory: (+) cough, sputum, dyspnea at rest or on exertion Cardiovascular: (+) chest pain, tightness Abdomen: No pain, nausea, vomiting, diarrhea or constipation Musculoskeletal: No joint pain, calf pain, swelling Neurologic: No weakness, numbness/tingling, or balance problems Psychiatric: No anxiety or depression Skin: No rash or itch Physical Exam Physical Exam: PHYSICAL EXAM: General: awake, alert, no apparent distress Head: Normocephalic, atraumatic ENT: PERRL, EOMI, no pharyngeal exudate, mucous membranes moist Neuro: AAO x 3, speech clear and appropriate, strength intact bilaterally 5/5, sensation intact and equal all extremities and dermatomes, no pronator drift Chest: equal rise and fall of the chest, no accessory muscle use, scattered crackles throughout, decreased in the bases, inspiratory and expiratory wheeze in upper airways. on RA Cardiac: Regular rate and rhythm, telemetry reviewed- ST, skin warm dry, cap refill <3 seconds, peripheral pulses +2, JVD, Grade IV systolic murmur- RSB and Left mid clavicular with radation to axialle, 2+ edema bilateral lower extremities up to knees. GI: NABS x 4 quadrants, soft, nontender to palpation, no rebound, guarding or tenderness : Spontaneously voiding, no pain, no CVA tenderness, Extremities: Normal inspection, no peripheral edema or erythema, calfs nontender to palpation Psych: Normal mood and affect Skin: no rash or erythema Results & Data Results & Data ([facility]) Vital Signs (Past 12 Hours) Vital Signs Temp Pulse Pulse Resp BP BP Pulse Ox 04/11/22 18:15 115 H 20 116/74 92 04/11/22 18:03 108 H 24 88/69 L 92 04/11/22 17:26 109 H 23 94 04/11/22 16:16 112 H 96 04/11/22 15:39 37.6 C H 121 H 112 H 28 H 154/106 H 96 Laboratory Results Abnormal lab results 04/11/22 04/11/22 04/11/22 Range/Units 15:35 15:35 15:35 WBC 11.72 H (4.8-10.8) K/uL Hgb 11.3 L (12.0-16.0) g/dL Hct 36.0 L (37-47) % MCHC 31.4 L (32-36) g/dL RDW Std Deviation 58.7 H (36.4-46.3) fL RDW Coeff of Manjula 18.8 H (11.5-14.5) % Neut # (Auto) 9.81 H (1.4-6.5) K/uL Lymph # (Auto) 0.85 L (1.2-3.4) K/uL [place] # (Auto) 0.94 H (0.11-0.59) K/uL Immature Gran # (Auto) 0.04 H (0.00-0.02) K/uL PT 23.6 H (9.0-12.0) Seconds INR 2.3 H (0.9-1.1) APTT 42.1 H (21.0-31.0) Seconds VBG pH (7.36-7.41) Sodium 132 L (136-145) mmol/L Creatinine 0.48 L (0.6-1.2) mg/dl Glucose 101 H (70-99(Fasting)) mg/dl B-Natriuretic Peptide (0-100) pg/ml 04/11/22 04/11/22 Range/Units 16:34 16:43 WBC (4.8-10.8) K/uL Hgb (12.0-16.0) g/dL Hct (37-47) % MCHC (32-36) g/dL RDW Std Deviation (36.4-46.3) fL RDW Coeff of Manjula (11.5-14.5) % Neut # (Auto) (1.4-6.5) K/uL Lymph # (Auto) (1.2-3.4) K/uL [place] # (Auto) (0.11-0.59) K/uL Immature Gran # (Auto) (0.00-0.02) K/uL PT (9.0-12.0) Seconds INR (0.9-1.1) APTT (21.0-31.0) Seconds VBG pH 7.42 H (7.36-7.41) Sodium (136-145) mmol/L Creatinine (0.6-1.2) mg/dl Glucose (70-99(Fasting)) mg/dl B-Natriuretic Peptide 842 H (0-100) pg/ml Diagnostic Findings Chest X-Ray 04/11/22 15:51 XR chest 1V portable CLINICAL HISTORY: Atypical chest pain TECHNIQUE: Single frontal radiograph of the chest was obtained. Comparison: Comparison is made to chest radiographs 03/25/2022 FINDINGS: No lines and tubes are seen. The cardiomediastinal silhouette is normal. Reticular interstitial opacities are seen. Interval improvement in bilateral pleural effusions. IMPRESSION: 1. Interval improvement in bilateral pleural effusions. 2. Improvement in previously noted peribronchial cuffing. Reticular interstitial opacities are again seen which may represent fibrotic changes. ACT 112: Negative or not required by law. Electronically signed by: Catrachito Beltran M.D. 04/11/2022 4:29 PM Medications Administered Discontinued Medications Albuterol (Albut/Ipratrop 3mg/0.5mg Neb 3 Ml Vial) 3 ml NEB NOW STA; Protocol Stop: 04/11/22 16:02 Last Admin: 04/11/22 16:13 Dose: 3 ml Documented by: [id number] Aspirin (Aspirin Chew 324 Mg) 324 mg PO NOW STA Stop: 04/11/22 15:52 Last Admin: 04/11/22 15:57 Dose: Not Given Documented by: [id number] Fentanyl Citrate (Fentanyl Citrate 100 Mcg/2 Ml Vial) 25 mcg IV NOW ONE Stop: 04/11/22 18:06 Last Admin: 04/11/22 18:21 Dose: 25 mcg Documented by: [id number] Furosemide (Furosemide 40 Mg/4 Ml Vial) 40 mg IV ONE ONE Stop: 04/11/22 17:28 Last Admin: 04/11/22 17:46 Dose: 40 mg Documented by: [id number] Morphine Sulfate (Morphine Sulfate 2 Mg/Ml Carp) 2 mg IV NOW STA Stop: 04/11/22 18:03 Last Admin: 04/11/22 18:14 Dose: Not Given Documented by: [id number] Nitroglycerin (Nitroglycerin Sl 0.4 Mg/Tab Tab) 0.4 mg SL NOW STA Stop: 04/11/22 17:28 Last Admin: 04/11/22 17:47 Dose: 0.4 mg Documented by: [id number] Prednisone (Prednisone 20 Mg Tab) 30 mg PO NOW STA Stop: 04/11/22 19:21 Last Admin: 04/11/22 19:44 Dose: 30 mg Documented by: [id number] Home Medications albuterol sulfate 90 mcg/actuation aerosol inhaler See Rx Instructions INHALATION .COMPLEX PRN gm 05/30/19 [History Confirmed 03/24/22] ascorbic acid (vitamin C) 1,000 mg tablet (Vitamin C) 1 g PO DAILY 12/06/21 [History Confirmed 03/24/22] aspirin 81 mg tablet,delayed release (Ecotrin Low Strength) 81 mg PO DAILY 12/06/21 [History Confirmed 03/24/22] latanoprost 0.005 % eye drops 1 drp OPB HS 12/06/21 [History Confirmed 03/24/22] vitamin B complex 1 tab PO DAILY 12/06/21 [History Confirmed 03/24/22] vitamin E 400 unit tablet 0 mg PO DAILY 12/06/21 [History Confirmed 03/24/22] cholecalciferol (vitamin D3) 25 mcg (1,000 unit) capsule (Vitamin D3) 1,000 unit PO DAILY cap 12/14/21 [History Confirmed 03/24/22] zinc 10 mg tablet 10 mg PO DAILY tab 12/14/21 [History Confirmed 03/24/22] ferrous sulfate 324 mg (65 mg iron) tablet,delayed release 324 mg PO DAILY #30 tab 01/18/22 [Rx Confirmed 03/24/22] blood sugar diagnostic (OneTouch Verio test strips) #100 ea 03/01/22 [Rx Confirmed 03/24/22] blood sugar diagnostic (OneTouch Verio test strips) #200 ea 03/01/22 [Rx Confirmed 03/24/22] pantoprazole 40 mg tablet,delayed release 40 mg PO DAILY 90 Days #90 tab 03/01/22 [Rx Confirmed 03/24/22] atorvastatin 40 mg tablet 40 mg PO DAILY #90 tab 03/23/22 [Rx Confirmed 03/24/22] metformin 1,000 mg tablet 1,000 mg PO BID #180 tab 03/23/22 [Rx Confirmed 03/24/22] doxycycline monohydrate 100 mg capsule 100 mg PO BID #14 cap 03/25/22 [Rx] prednisone 10 mg tablet 10 mg PO DAILY #135 tab 04/04/22 [Rx] warfarin 5 mg tablet 5 mg PO QPM 04/11/22 [History Confirmed 04/11/22] Active Medications Ceftriaxone Sodium (Rocephin) 1,000 mg in 50 mls @ 100 mls/hr IV NOW STA Stop: 04/11/22 20:20 ECG Additional Comments: Sinus tachycardia Possible Left atrial enlargement Rightward axis Anteroseptal infarct , age undetermined Abnormal ECG When compared with ECG of 06-DEC-2021 02:12, Anteroseptal infarct is now Present Nonspecific T wave abnormality no longer evident in Lateral leads Code Status & VTE Plan Code Status CODE: FULL VTE: SCDs, Warfarin Supervising Physician Co-Signing Physician Notes Attending Attestation & Admission Note: Pt seen/examined, chart reviewed, care plan d/w RASHI Kolb. I agree w/ the padilla components of his admission documentation. 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 Latter is central in location. Recently treated with 7-day course of doxycycline for possible community-acquired pneumonia. Sarcoid has been controlled for a long time. PMH/PSH/allergies/meds/sochx/famhx - reviewed Vitals - temp 37.6, tachypneic, tachycardic, O2 sats in RA 90s gen - pleasant, looks tired & ill, tachypneic neck - JVD 2/3 way up neck heart - tachy, s1s2, 3/6 systolic murmur RUSB; 2/6 systolic murmur LLSB-->axillae lungs - b/l basilar rales with tachypnea abd - soft NT BS+ ext - 1+ edema b/l, pulses 2+ b/l labs reviewed imaging reviewed EKG - sinus tach, IRBBB, no ST changes A/P: Acute respiratory distress along with pleuritic chest pain. Severe aortic stenosis (MATT 0.3). Extensive b/l infiltrates on chest x-ray -- scar tissue/fibrosis from sarcoid +/- pneumonia +/- pulmonary edema. Plan - serial troponins, diurese, steroid burst, antibiotics, supportive care. Pulmonary consultation - ?active sarcoid - await their recs. Strongly consider cardiology consultation - given the severity of the - TAVR needed sooner rather than later given the decompensated CHF? Suspect pleuritic CP is due to the pulmonary process. Of note - suspect hyponatremia will improve with diuresis. Cruz Lopes MD PG Care Time/CCT Total # of Minutes Spent Total Time Spent with Patient: Total time spent is greater than 50% in coordination of care (as documented) at patient's floor/unit and/or counseling patient: Coding Level of Care Code 45842 Initial Inpt Care Lvl 3 Diagnoses Dyspnea R06.00 Aortic stenosis I35.0 DM (diabetes mellitus), type 2 E11.9 Obstructive sleep apnea G47.33 Hypercholesterolemia E78.00 Factor V Leiden mutation D68.51 Acute diastolic CHF (congestive heart failure) I50.31 Pleuritic chest pain R07.81 Sarcoidosis D86.9 History of TIA (transient ischemic attack) Z86.73 Hyponatremia E87.1
[2022-04-11] MEDS ORDERED: cefTRIAXone SODIUM 1,000 MG/50 ML BAG IV STA (19:51)
[2022-04-11] MEDS ORDERED: ACETAMINOPHEN 500 MG TAB PO STA (20:18)
[2022-04-11] MEDS ORDERED: DEXTROSE 50% 50 ML SYRINGE IV PRN (22:08)
[2022-04-11] MEDS ORDERED: POLYETHYLENE (MIRALAX) 17 GM PACK PO PRN (22:08)
[2022-04-11] MEDS ORDERED: GLUCOSE 10 TABS/TUBE PO PRN (22:08)
[2022-04-11] MEDS ORDERED: ACETAMINOPHEN 325 MG TAB PO PRN (22:08)
[2022-04-11] MEDS ORDERED: CARBOHYDRATES FOR HYPOGLYCEMIA PO PRN (22:08)
[2022-04-11] MEDS ORDERED: GLUCOSE 40% GEL 15 GM TUBE PO PRN (22:08)
[2022-04-11] MEDS ORDERED: GLUCAGON FOR INJ 1 MG VIAL SQ PRN (22:08)
[2022-04-11] MEDS ORDERED: ONDANSETRON INJ 2 MG/ML 2 ML VIAL IV PRN (22:08)
[2022-04-11] MEDS ORDERED: ALBUTEROL 0.083% NEBU SOLN 3 ML VIAL NEB PRN (22:08)
[2022-04-11] MEDS: PANTOprazole 40 MG TAB PO SCH (23:00)
[2022-04-11] MEDS: DOXYCYCLINE HYCLATE 100 MG CAP PO SCH (23:00)
[2022-04-11] MEDS: INSULIN ASPART PER UNIT SC SCH (23:04)
[2022-04-12] MEDS: ALBUTEROL HFA 8 GM INHALER INH SCH ×5 (00:18→19:51)
[2022-04-12] MEDS: FUROSEMIDE 40 MG/4 ML VIAL IV ONE ×2 (04:00→04:32)
[2022-04-12 04:15] LABS: Basophils # (auto) 0.01 K/uL (0-0.2); Basophils % (auto) 0.1 %; Hematocrit (blood only) 34.1 % (37-47); Hemoglobin 11.1 g/dL (12.0-16.0); Immature Granulocytes # (auto) 0.03 K/uL (0.00-0.02); Immature Granulocytes % (auto) 0.3 %; Lymphocytes # (auto) 0.57 K/uL (1.2-3.4); Lymphocytes % (auto) 4.8 %; Mean Corpuscular Hemoglobin 27.5 pg (25-34); Mean Corpuscular Hgb Conc 32.6 g/dL (32-36); Mean Corpuscular Volume 84.6 fL (80-100); Monocytes # (auto) 0.93 K/uL (0.11-0.59); Monocytes % (auto) 7.8 %; Neutrophils # (auto) 10.32 K/uL (1.4-6.5); Platelet Count 228 K/uL (130-400); RDW Coefficient of Variation 18.6 % (11.5-14.5); RDW Standard Deviation 58.6 fL (36.4-46.3); Red Blood Count 4.03 M/uL (4.2-5.4); White Blood Count 11.86 K/uL (4.8-10.8)
[2022-04-12 04:34] LABS: BUN Creatinine Ratio 22.6 (10-20); Calcium 8.9 mg/dl (8.5-10.1); Creatinine Clr Calc Pharmacy 67.8 ml/min; Est GFR (African American) 105.4 ml/min; Est GFR (Non-African American) 90.9 ml/min; Potassium 4.3 mmol/L (3.5-5.1)
[2022-04-12 04:35] LABS: INR 2.1 (0.9-1.1); Prothrombin Time 21.9 Seconds (9.0-12.0)
--- NOTE | 2022-04-12 08:24 | Electrocardiogram Report ---
Test Reason : Blood Pressure : / mmHG Vent. Rate : 117 BPM Atrial Rate : 117 BPM P-R Int : 138 ms QRS Dur : 080 ms QT Int : 312 ms P-R-T Axes : 050 097 029 degrees QTc Int : 435 ms Sinus tachycardia Left atrial enlargement Incomplete right bundle branch block Rightward axis Abnormal ECG When compared with ECG of 06-DEC-2021 02:12, HR has increased by 28 bpm Otherwise no significant change Confirmed by Young Souza ([id number]) on 04/12/2022 8:24:18 AM Referred By: Confirmed By:Young Souza
[2022-04-12] MEDS: ASPIRIN 81 MG ECTAB PO SCH (09:16)
[2022-04-12] MEDS: ATORVASTATIN 40 MG TAB PO SCH (09:17)
[2022-04-12] MEDS: FERROUS SULFATE 325 MG TAB PO SCH (09:18)
[2022-04-12] MEDS: DOXYCYCLINE HYCLATE 100 MG CAP PO SCH ×2 (09:18→20:18)
[2022-04-12] MEDS: PANTOprazole 40 MG TAB PO SCH ×2 (09:19→20:18)
[2022-04-12] MEDS: predniSONE 20 MG TAB PO SCH (09:19)
[2022-04-12] MEDS: INSULIN ASPART PER UNIT SC SCH ×4 (09:34→20:17)
[2022-04-12] MEDS ORDERED: FUROSEMIDE 40 MG/4 ML VIAL IV ONE (15:10)
--- NOTE | 2022-04-12 15:21 | CT Scan Report ---
CT chest diagnostic wo con CLINICAL HISTORY: h/o sarcoid; resp failure; pneumonia VS CHF TECHNIQUE: Multidetector row helical CT of the chest was performed. Coronal and sagittal reformations were obtained. Automated dose lowering techniques and/or adjustment according to patient size were u tilized for this exam. CT DOSE: 217.98 mGycm Comparison: Comparison is made to CTA neck 11/25/2018 FINDINGS: Lungs and pleura: Bilateral pleural effusions are seen. Reticular appearing linear interstitial opaci ties are seen in the mid lungs. Heart and pericardium: Cardiomegaly is seen with biatrial enlargement. Aortic valvular calcification is seen. Aortic calcifications are seen. Vessels: Unremarkable. Mediastinum and carolee: Scattered partially calcified lymph nodes are seen. Chest wall and lower neck: Thyroid tissue is seen in the upper mediastinum, unchanged from prior exam . Abdomen: Unremarkable. Bones: Degenerative changes in the thoracic spine. The bilateral glenohumeral joints are markedly deg enerative in appearance. IMPRESSION: 1. Reticular opacities in the lungs compatible with history of sarcoidosis. 2. Partially calcified mediastinal lymph nodes compatible with sarcoidosis. 3. Bilateral small pleural effusions. 4. Thyroid tissue in the superior mediastinum, unchanged from prior exam. ACT 112: Negative or not required by law. Electronically signed by: Catrachito Beltran M.D. 04/12/2022 3:20 PM
[2022-04-12] MEDS: WARFARIN SOD 5 MG TAB PO SCH (16:57)
[2022-04-12] MEDS: cefTRIAXone SODIUM 1,000 MG in DEXTROSE 5% 50 ML IV SCH (21:59)
--- NOTE | 2022-04-12 23:40 | Hospitalist Progress Note ---
Date of Service April 12, 2022 Assessment & Plan (1) Acute diastolic CHF (congestive heart failure): Plan: 2nd to severe . Recent echo with MATT of 0.3. That echo did show preserved EF. s/p lasix yesterday with improved symptoms. Will give lasix 40mg IV x 1 again today. During the stay she would benefit from low-dose metoprolol or coreg. Hold off at this time. (2) Aortic stenosis: Plan: MATT 0.3 on recent outpatient echo (03/25/22). Has been referred to [facility] clinic for the severe to explore candidacy for TAVR. 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 While here consider [facility] consultation. Now with decompensated CHF - see #1 above. Avoid afterload reduction. (3) Pleuritic chest pain: Plan: Likely 2nd to volume overload / #1. Improved today. Can't rule out infectious pneumonitis contributing. Can't rule out active sarcoid contributing. Diuresis for #1. Rocephin/doxy if any infectious component. Steroids for sarcoid. Recent echo with no pericardial effusion. Pain not ischemic by history. Doubt pericarditis but can't rule it out 100%. (4) Sarcoidosis: Plan: Long-standing history. On chronic prednisone 10mg daily. Due to ?active sarcoid I have increased to 40mg/day. CRP noted to be mildly elevated. CT chest obtained today - numerous findings c/w sarcoid. Will ask [facility] to eval for their opinion re: whether she has active sarcoid or not. (5) DM (diabetes mellitus), type 2: Plan: Hold Metformin Novolog SSI HbA1C 5.2% in 11/2021 (6) Obstructive sleep apnea: Plan: CPAP 4cm H20 nightly (7) Hypercholesterolemia: Plan: Continue Atorvastatin 40mg po daily (8) Factor V Leiden mutation: Plan: Continue Coumadin 5mg daily with daily INR INR today therapeutic (9) History of TIA (transient ischemic attack): Plan: noted cont coumadin cont asa 81mg daily (10) Hyponatremia: Plan: 2nd to volume overload should improve with diuresis bmp in am (11) Mitral regurgitation: Plan: mod-severe on recent echo 03/25/22 Plan: change observation to full admission Admission and Anticipated Discharge Date Admission Date: April 11, 2022 Subjective pt continues with dyspnea on exertion but it IS improved in comparison to ER presentation was able to sleep better last night - no PND or orthopnea mild cough no sputum eating ok ambulating to bathroom tele overnight wnl Review of Systems Review of Systems: gen - documented low grade fever but patient didn't realize such; no chills cv - pleuritic chest pain IS improved today pulm - ongoing dyspnea GI - no abd pain, nausea or emesis Physical Exam Physical Exam: gen - NAD, still with mild tachypnea neck - mild JVD still present even sitting at 90 degrees upright mouth - MMM heart - RRR, s1 s2; 2 separate murmurs - first is RUSB, 3/6, holosystolic; second is LLSB --> axillae, 3/6, holosystolic lungs - b/l basilar rales with decreased BS, apices clear; mild tachypnea, no retractions; no wheezing abd - soft NT ND BS+; large reducible umbilical hernia ext - 1+ edema b/l, pulses 2+ b/l psych - a/o x 3 Results & Data Results & Data ([facility]) Vital Signs (Past 12 Hours) Vital Signs Temp Pulse Pulse Pulse Resp BP BP 04/12/22 22:20 37.2 C 89 20 115/69 04/12/22 19:51 95 H 18 04/12/22 18:33 37.3 C 92 H 20 112/76 04/12/22 16:04 101 H 04/12/22 14:56 37.2 C 99 H 18 124/74 04/12/22 13:39 96 H 20 116/73 04/12/22 12:47 99 H 18 Pulse Ox 04/12/22 22:20 93 04/12/22 19:51 96 04/12/22 18:33 96 04/12/22 16:04 04/12/22 14:56 96 04/12/22 13:39 94 04/12/22 12:47 95 Laboratory Results Laboratory Results - last 24 hr 04/12/22 04/12/22 04/12/22 04:02 04:02 04:02 WBC 11.86 H RBC 4.03 L Hgb 11.1 L Hct 34.1 L MCV 84.6 MCH 27.5 MCHC 32.6 RDW Std Deviation 58.6 H RDW Coeff of Manjula 18.6 H Plt Count 228 MPV 9.0 Immature Gran % (Auto) 0.3 Neut % (Auto) 87.0 Lymph % (Auto) 4.8 [place] % (Auto) 7.8 Eos % (Auto) 0.0 Baso % (Auto) 0.1 Neut # (Auto) 10.32 H Lymph # (Auto) 0.57 L [place] # (Auto) 0.93 H Eos # (Auto) 0.00 Baso # (Auto) 0.01 Immature Gran # (Auto) 0.03 H PT 21.9 H INR 2.1 H Sodium Potassium Chloride Carbon Dioxide Anion Gap BUN Creatinine Est Cr Clr Drug Dosing Est GFR ( Amer) Est GFR (Non-Af Amer) BUN/Creatinine Ratio Glucose POC Glucose Calcium Magnesium Troponin I High Sens 14.3 H D 04/12/22 04/12/22 04/12/22 04:02 07:51 11:38 WBC RBC Hgb Hct MCV MCH MCHC RDW Std Deviation RDW Coeff of Manjula Plt Count MPV Immature Gran % (Auto) Neut % (Auto) Lymph % (Auto) [place] % (Auto) Eos % (Auto) Baso % (Auto) Neut # (Auto) Lymph # (Auto) [place] # (Auto) Eos # (Auto) Baso # (Auto) Immature Gran # (Auto) PT INR Sodium 131 L Potassium 4.3 Chloride 95 L Carbon Dioxide 27 Anion Gap 9 BUN 12 Creatinine 0.53 L Est Cr Clr Drug Dosing 67.8 Est GFR ( Amer) 105.4 Est GFR (Non-Af Amer) 90.9 BUN/Creatinine Ratio 22.6 H Glucose 132 H POC Glucose 127 H Calcium 8.9 Magnesium 2.0 Troponin I High Sens 14.0 04/12/22 04/12/22 04/12/22 12:59 16:50 20:10 WBC RBC Hgb Hct MCV MCH MCHC RDW Std Deviation RDW Coeff of Manjula Plt Count MPV Immature Gran % (Auto) Neut % (Auto) Lymph % (Auto) [place] % (Auto) Eos % (Auto) Baso % (Auto) Neut # (Auto) Lymph # (Auto) [place] # (Auto) Eos # (Auto) Baso # (Auto) Immature Gran # (Auto) PT INR Sodium Potassium Chloride Carbon Dioxide Anion Gap BUN Creatinine Est Cr Clr Drug Dosing Est GFR ( Amer) Est GFR (Non-Af Amer) BUN/Creatinine Ratio Glucose POC Glucose 131 H 184 H 114 H Calcium Magnesium Troponin I High Sens Diagnostic Findings Chest CT 04/12/22 07:30 CT chest diagnostic wo con CLINICAL HISTORY: h/o sarcoid; resp failure; pneumonia VS CHF TECHNIQUE: Multidetector row helical CT of the chest was performed. Coronal and sagittal reformations were obtained. Automated dose lowering techniques and/or adjustment according to patient size were utilized for this exam. CT DOSE: 217.98 mGycm Comparison: Comparison is made to CTA neck 11/25/2018 FINDINGS: Lungs and pleura: Bilateral pleural effusions are seen. Reticular appearing linear interstitial opacities are seen in the mid lungs. Heart and pericardium: Cardiomegaly is seen with biatrial enlargement. Aortic valvular calcification is seen. Aortic calcifications are seen. Vessels: Unremarkable. Mediastinum and carolee: Scattered partially calcified lymph nodes are seen. Chest wall and lower neck: Thyroid tissue is seen in the upper mediastinum, unchanged from prior exam. Abdomen: Unremarkable. Bones: Degenerative changes in the thoracic spine. The bilateral glenohumeral joints are markedly degenerative in appearance. IMPRESSION: 1. Reticular opacities in the lungs compatible with history of sarcoidosis. 2. Partially calcified mediastinal lymph nodes compatible with sarcoidosis. 3. Bilateral small pleural effusions. 4. Thyroid tissue in the superior mediastinum, unchanged from prior exam. ACT 112: Negative or not required by law. Electronically signed by: Catrachito Beltran M.D. 04/12/2022 3:20 PM PG Care Time/CCT Total # of Minutes Spent Total Time Spent with Patient: Total time spent is greater than 50% in coordination of care (as documented) at patient's floor/unit and/or counseling patient: Coding Level of Care Code 27453 Subseq Hosp Care Lvl 3 Diagnoses Aortic stenosis I35.0 DM (diabetes mellitus), type 2 E11.9 Obstructive sleep apnea G47.33 Hypercholesterolemia E78.00 Factor V Leiden mutation D68.51 Acute diastolic CHF (congestive heart failure) I50.31 Pleuritic chest pain R07.81 Sarcoidosis D86.9 History of TIA (transient ischemic attack) Z86.73 Hyponatremia E87.1 Mitral regurgitation I34.0
[2022-04-13] MEDS: ALBUTEROL HFA 8 GM INHALER INH SCH ×5 (01:00→23:25)
[2022-04-13] MEDS: ATORVASTATIN 40 MG TAB PO SCH (08:55)
[2022-04-13] MEDS: DOXYCYCLINE HYCLATE 100 MG CAP PO SCH ×2 (08:55→20:16)
[2022-04-13] MEDS: PANTOprazole 40 MG TAB PO SCH ×2 (08:55→20:15)
[2022-04-13] MEDS: FERROUS SULFATE 325 MG TAB PO SCH (08:55)
[2022-04-13] MEDS: predniSONE 20 MG TAB PO SCH (08:55)
[2022-04-13] MEDS: INSULIN ASPART PER UNIT SC SCH ×4 (08:56→20:32)
[2022-04-13 08:57] LABS: INR 1.5 (0.9-1.1); Prothrombin Time 15.8 Seconds (9.0-12.0)
[2022-04-13 09:06] LABS: BUN Creatinine Ratio 28.8 (10-20); Calcium 8.9 mg/dl (8.5-10.1); Creatinine Clr Calc Pharmacy 59.8 ml/min; Est GFR (African American) 101.7 ml/min; Est GFR (Non-African American) 87.8 ml/min; Magnesium 2.1 mg/dl (1.7-2.4); Potassium 3.6 mmol/L (3.5-5.1)
--- NOTE | 2022-04-13 09:11 | Pulmonary Consultation ---
Date of Consultation April 13, 2022 Assessment & Plan (1) Sarcoidosis: (2) Obstructive sleep apnea: (3) Shortness of breath: (4) Pulmonary hypertension: (5) Acute respiratory failure with hypoxia: CT chest 04/12/2022 personally reviewed: Bilateral upper lobe scarring with volume loss Bilateral pleural effusion more on the right side Left lower lobe granuloma Cardiomegaly Calcified mediastinal lymph nodes -- Acute respiratory failure with hypoxia Likely secondary to cardiac etiology BNP 842 Procalcitonin negative 2D echo 03/25/2022: Mild concentric LVH, severely dilated LA, severe valvular aortic stenosis, mild to moderate MS, moderate to severe MR, right ventricle normal in size and function -- History of sarcoidosis Stage IV with fibrosis of the lung Sarcoidosis it is usually not associated with pleural effusion I highly doubt patient has active sarcoidosis, she likely has burnt out sarcoidosis Patient has been on chronic prednisone 10 mg. As I stated I am not sure if she truly needs to be on prednisone Given that she has been on prednisone for a long time would continue with 10 mg --Increase pulmonary artery diameter Looking at the dimension of main pulmonary artery on the CT chest --CHALO Continue with CPAP --History of active 5 Leiden deficiency On warfarin Plan: Continue with diuresis to keep the patient negative balance Continue with CPAP/BiPAP Patient severe as well as moderate to severe MR is likely the underlying cause of patient's bilateral pleural effusion as well as worsening shortness of breath I would recommend the patient to be transferred to a tertiary care center where she could be evaluated for possible TAVR and/or a mitral clip Continue with O2 supplementation to keep oxygen between 90-92% Will decrease the prednisone back to 10 mg given that she has been on chronic prednisone for very long time. Case was discussed with Dr. Lainez Please note the above document was generated using voice recognition software. It may contain grammatical, syntax or spelling errors.Any formal questions or concerns about the content, text or information contained within the body of this dictation should be directly addressed to the provider for clarification. History of Present Illness Attending Physician: Yrn Lainez MD History of Present Illness 76-year-old female present to the hospital because of shortness of breath Past medical history: Factor V Leiden mutation on Coumadin, TIA, diabetes, gastritis, sarcoidosis on chronic 10 mg prednisone Pulmonary consulted for abnormal chest CT At the time of examination patient was in mild respiratory distress using accessory muscles while talking to me She was on 2 L nasal cannula. Saturating 96-97% As per the patient she has been having issues with breathing which has been going on for months progressively getting worse Is usually worse when she is exerting herself. At rest she does not complain of significant shortness of breath Denies any cough. No fever or chills associated with it. No dysuria, or diarrhea. No headache, no blurry vision. No nausea or vomiting. Patient has history of sarcoidosis and she was started on prednisone 20 mg when she was initially diagnosed. It was titrated down to 10 mg and she has been on 10 mg for years. Social history: Lifetime non-smoker Allergies Allergy/AdvReac Type Severity Reaction Status Date / Time chocolate flavor Allergy Unknown Headache Verified 04/11/22 19:10 Home Medications Medication Instructions Recorded Confirmed Type albuterol sulfate 90 mcg/actuation 1 inh INHALATION Q4H PRN gm 05/30/19 04/11/22 History aerosol inhaler ascorbic acid (vitamin C) 1,000 mg 1 g PO DAILY 12/06/21 04/11/22 History tablet (Vitamin C) aspirin 81 mg tablet,delayed 81 mg PO DAILY 12/06/21 04/11/22 History release (Ecotrin Low Strength) latanoprost 0.005 % eye drops 1 drp OPB HS 12/06/21 04/11/22 History vitamin B complex 1 tab PO DAILY 12/06/21 04/11/22 History vitamin E 400 unit tablet 0 mg PO DAILY 12/06/21 04/11/22 History cholecalciferol (vitamin D3) 25 1,000 unit PO DAILY cap 12/14/21 04/11/22 History mcg (1,000 unit) capsule (Vitamin D3) zinc 10 mg tablet 10 mg PO DAILY tab 12/14/21 04/11/22 History ferrous sulfate 324 mg (65 mg 324 mg PO DAILY #30 tab 01/18/22 04/11/22 Rx iron) tablet,delayed release blood sugar diagnostic (OneTouch #100 ea 03/01/22 03/24/22 Rx Verio test strips) blood sugar diagnostic (OneTouch #200 ea 03/01/22 03/24/22 Rx Verio test strips) pantoprazole 40 mg tablet,delayed 40 mg PO DAILY 90 Days #90 tab 03/01/22 04/11/22 Rx release atorvastatin 40 mg tablet 40 mg PO DAILY #90 tab 03/23/22 04/11/22 Rx metformin 1,000 mg tablet 1,000 mg PO BID #180 tab 03/23/22 04/11/22 Rx doxycycline monohydrate 100 mg 100 mg PO BID #14 cap 03/25/22 04/11/22 Rx capsule prednisone 10 mg tablet 10 mg PO DAILY #135 tab 04/04/22 04/11/22 Rx warfarin 5 mg tablet 5 mg PO QPM 04/11/22 04/11/22 History Patient History Medical History (Updated 04/13/22 @ 14:48 by Mahesh Britton MD) 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 Diabetes Factor V Leiden mutation GI (gastrointestinal bleed) History of TIA (transient ischemic attack) HTN (hypertension) Pulmonary embolism TIA (transient ischemic attack) Surgical History H/O: hysterectomy Family History Mother Diabetes Stroke Father Myocardial infarction Stroke Denies family history of Ovarian cancer Prostate cancer Breast cancer Colorectal cancer Hypertension Social History Smoking Status: Smoker, status unknown Second Hand Exposure: No; Hx Alcohol Use: No Hx Substance Use: No Preferred Language: Serbian Communication Ability: Effective Visual Impairment: No Limitations Stakeholder Manager Required: No Beliefs That Will Affect Care: None marital status: Current Living Situation: Spouse current occupational status: retired How many Children do You have: 4 Other Information That Helps Us Care for You: No Feels Safe at Home: Yes Safety Concerns: Feels Safe At This Time Childhood Exposure to Second-Hand Smoke: No caffeine: Yes Dental Care, Regularly: No Physical Activity Frequency: Daily Seatbelt Use: always Sunscreen Use: Yes Assistive Devices: None Review of Systems Review of Systems: All systems reviewed & are unremarkable except as noted in HPI & below Physical Exam Physical Exam: Constitutional: Mild respiratory distress HEENT: EOMI, PERRLA, positive JVD Respiratory system: Decreased air entry bilaterally, no wheeze, no rhonchi, mild crackles bilateral lower lobes CVS: S1-S2 positive, positive 3 out of 6 holosystolic murmur appreciated best at the apex Abdomen: Soft, nontender, nondistended, positive bowel sounds x4 Extremities: +2 pulses bilaterally radialis/ dorsalis pedis, no cyanosis, minimal pitting edema bilateral lower extremity Neuro: Awake alert oriented x3 Psych: Normal mood and affect G/U: No Irizarry Skin: no rashes, warm and dry Lymphatic: no cervical or axillary lymphadenopathy Results & Data Results & Data ([facility]) Vital Signs (Past 12 Hours) Vital Signs Temp Pulse Pulse Resp BP Pulse Ox 04/13/22 07:51 92 H 04/13/22 07:25 36.7 C 92 H 18 118/71 93 04/13/22 06:53 78 20 99 04/13/22 03:00 37.5 C 89 20 116/75 94 04/13/22 00:00 95 H 04/12/22 22:20 37.2 C 89 20 115/69 93 Laboratory Results 04/12/22 04:02 04/13/22 07:24 PG Care Time/CCT Total # of Minutes Spent Total Time Spent with Patient: Total time spent is greater than 50% in coordination of care (as documented) at patient's floor/unit and/or counseling patient: Coding Level of Care Code 94388 Initial Inpt Care Lvl 3 Diagnoses Sarcoidosis D86.9 Obstructive sleep apnea G47.33 Shortness of breath R06.02 Pulmonary hypertension I27.20 Acute respiratory failure with hypoxia J96.01
[2022-04-13] MEDS: ASPIRIN 81 MG ECTAB PO SCH (10:05)
--- NOTE | 2022-04-13 10:07 | Hospitalist Progress Note ---
Date of Service April 13, 2022 Assessment & Plan (1) Acute diastolic CHF (congestive heart failure): Plan: 2nd to severe . Recent echo with MATT of 0.3. That echo did show preserved EF. Moderate to severe MR Has been referred to [facility]ve clinic for the severe to explore candidacy for TAVR. 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 [facility] consultation, I spoke personally spoke to Manoj Ramirez will help to determine if appropriate for valve repair s/p lasix 40mg 04/11& consider low dose b Simon (2) Pleuritic chest pain: Plan: Rocephin/doxy if any infectious component. Steroids for sarcoid. dose increased to 40 mg Recent echo with no pericardial effusion. (3) Sarcoidosis: Plan: Long-standing history, typically on chronic prednisone 10mg daily. previous attending has increased to 40mg/day, CRP noted to be mildly elevated. CT chest obtained c/w sarcoid, consult [facility] Pulmonary-doubt patient has active sarcoidosis, she likely has burnt out sarcoidosis but does not need any treatment (4) DM (diabetes mellitus), type 2: Plan: Hold Metformin Novolog [facility] HbA1C 5.2% in 11/2021 (5) Obstructive sleep apnea: Plan: CPAP 4cm H20 nightly (6) Hypercholesterolemia: Plan: Continue Atorvastatin 40mg po daily (7) Factor V Leiden mutation: Plan: Continue Coumadin 5mg daily with daily INR INR today therapeutic (8) History of TIA (transient ischemic attack): Plan: cont asa 81mg daily atorvastatin (9) Hyponatremia: Plan: persists, could be from diuretics Admission and Anticipated Discharge Date Admission Date: April 11, 2022 Subjective Patient with severe dyspnea with ambulating short distances even across the room. She is also dyspneic with conversation. Patient does not feel she is improved enough to go home but has improved from when she arrived. She has had no chest pain with her dyspnea or dizziness she has no lower extremity edema Review of Systems Review of Systems: 10 body systems reviewed in review of systems and are negative unless listed above Physical Exam Physical Exam: The patient appeared well nourished and normally developed. Vital signs as documented. Head exam is normocephalic atraumatic Neck is without JVD, thyromegaly, or carotid bruits. Lungs are diminished breath sounds and mild rales at the base Cardiac exam, Rhythm is regular.. Significant systolic murmur consistent with her aortic stenosis Abdominal exam reveals normal bowel sounds, soft non tender, no masses Extremities are nonedematous and both pedal pulses are present Neurologic exam is alert and oriented, no focal loss of strength or sensation Skin is without bruises or rashes Psychologically is without concerns for anxiety or depression.. Results & Data Results & Data ([facility]) Vital Signs (Past 12 Hours) Vital Signs Temp Pulse Pulse Resp BP Pulse Ox 04/13/22 07:51 92 H 04/13/22 07:25 98.1 F 92 H 18 118/71 93 04/13/22 06:53 78 20 99 04/13/22 03:00 99.5 F 89 20 116/75 94 04/13/22 00:00 95 H 04/12/22 22:20 99.0 F 89 20 115/69 93 PG Care Time/CCT Total # of Minutes Spent Total Time Spent with Patient: Total time spent is greater than 50% in coordination of care (as documented) at patient's floor/unit and/or counseling patient: Coding Level of Care Code 75770 Subseq Hosp Care Lvl 3 Diagnoses Acute diastolic CHF (congestive heart failure) I50.31 Pleuritic chest pain R07.81 Sarcoidosis D86.9 DM (diabetes mellitus), type 2 E11.9 Obstructive sleep apnea G47.33 Hypercholesterolemia E78.00 Factor V Leiden mutation D68.51 History of TIA (transient ischemic attack) Z86.73 Hyponatremia E87.1
[2022-04-13] MEDS: WARFARIN SOD 5 MG TAB PO SCH (17:33)
[2022-04-13] MEDS ORDERED: FUROSEMIDE INJ 20 MG/2 ML VIAL IV ONE (18:30)
--- NOTE | 2022-04-13 20:09 | Cardiology Consultation ---
Date of Consultation April 13, 2022 Assessment & Plan (1) Acute diastolic CHF (congestive heart failure): (2) Aortic stenosis: (3) Mitral regurgitation: 76-year-old frail female with longstanding history of pulmonary sarcoidosis for which she is on chronic prednisone, factor V Leiden mutation with past venous thromboembolic event, multiple stroke events in the past, and is maintained on chronic Coumadin INR today, 1.5 presents with several weeks of progressive dyspnea culminating in chest tightness prompting hospitalization 04/11/2022. Patient received 20 mg of IV furosemide this morning and feels a little bit better. Echocardiogram recently performed as an outpatient 2 weeks ago on 03/25/2022 revealed significant mixed valvular heart disease, with mild concentric left ventricular hypertrophy, normal to hyperdynamic left ventricular systolic function, severe left atrial enlargement with severe calcification of the mitral valve annulus and mitral valve apparatus, at least some degree of mitral stenosis, mitral valve diastolic gradient 5.5 mmHg, moderate to severe MR, and critically severe calcific aortic stenosis, CW velocity 5.1 m/s, mean gradient 60 mmHg, MATT 0.35 cm. As noted, patient has underlying respiratory insufficiency related to history of longstanding sarcoidosis, and is already been seen by pulmonary medicine. Although her INR is subtherapeutic today, recent INR measurements otherwise have been therapeutic, and I think the risk of her having a venous thromboembolic event is low. Patient has not previously followed with cardiology, but is tentatively scheduled for an outpatient consultation with Dr. Joyner of cardiothoracic surgery at [facility] [place] 04/21/[place]22. Based on her presentation, recommend transfer to [facility] for expedited work-up. Her comorbidities make her poor candidate for open heart surgery. Images of recent echocardiogram reviewed independently. Based on the severe calcification of the mitral valve and mitral valve apparatus, and therefore surgical or percutaneous treatment likely not feasible with regards to the mitral valve stenosis/regurgitation, and I would speculate that if her aortic valve stenosis could be addressed via transcatheter approach, this would also improve her mitral regurgitation. Case discussed with Dr Jordin Cabral of cardiology at [facility] who accept pt in transfer pending bed availability. Pt stable for transfer via ACLS ground. In meantime, continue cautious diuretic therapy, furosemide 20 mg IV daily. She remains on warfarin, INR is subtherapeutic, will hold off on bridge therapy for now given her frailty, and past history of gastrointestinal bleeding. An EGD had been performed for evaluation of melena in November, with findings of normal esophagus, small hiatal hernia, gastritis. Case discussed by phone with angie Hernandez for [place] hospitalist service. History of Present Illness Attending Physician: Yrn Lainez MD History of Present Illness Katherine Navarro is a 76 year old female seen in cardiology consultation per the request of Dr Lainez for the evaluation of severe aortic stenosis. Patient has not previously followed with cardiology. She notes worsening shortness of breath with exertion over the last 1 month time. It is progressed to orthopnea and she is unable to lie flat in a recliner. Ultimately, 2 days ago on 04/11/2022 she noted waxing and waning midline chest discomfort that was worse with trying to take a deep breath prompting her to come to the hospital. At the time of my assessment, severe dyspnea with minimal exertion, just walking a few feet back to her bed from the restroom was observed by the undersigned. She had previously had an echocardiogram in November, as part of a str jade/TIA work-up. The report describes mild to moderate aortic stenosis at that time, with peak aortic valve velocity of 2.9 m/s. A repeat transthoracic echocardiogram has been performed as per the request of her primary care provider at the [facility] outpatient center on 03/25/2022 with results of critically severe aortic stenosis including peak CW velocity of 5.1 m/s, mean gradient 60 mmHg, calculated aortic valve area 0.35 cm. Mild concentric left ventricular hypertrophy noted with hyperdynamic LVEF, greater than 70%, severe left atrial dilatation with severe calcification of the mitral valve and mitral valve annulus with mild to moderate mitral stenosis and moderate to severe mitral regurgitation. Mild tricuspid regurgitation noted, however the tricuspid valve regurgitation envelope was insufficient to allow measurement of the pulmonary systolic pressure. Small bilateral pleural effusions noted on echocardiogram. Past Medical History: Factor V Leiden Mutation, for which patient has been on chronic anticoagulation with Coumadin for years Past pulmonary embolism Multiple TIA/stroke events (4 events per patient) Type 2 diabetes mellitus State IV Sacoidosis , on chronic prednisone therapy 10 mg daily Dyslipidemia Allergies Allergy/AdvReac Type Severity Reaction Status Date / Time chocolate flavor Allergy Unknown Headache Verified 04/11/22 19:10 Home Medications Medication Instructions Recorded Confirmed Type albuterol sulfate 90 mcg/actuation 1 inh INHALATION Q4H PRN gm 05/30/19 04/11/22 History aerosol inhaler ascorbic acid (vitamin C) 1,000 mg 1 g PO DAILY 12/06/21 04/11/22 History tablet (Vitamin C) aspirin 81 mg tablet,delayed 81 mg PO DAILY 12/06/21 04/11/22 History release (Ecotrin Low Strength) latanoprost 0.005 % eye drops 1 drp OPB HS 12/06/21 04/11/22 History vitamin B complex 1 tab PO DAILY 12/06/21 04/11/22 History vitamin E 400 unit tablet 0 mg PO DAILY 12/06/21 04/11/22 History cholecalciferol (vitamin D3) 25 1,000 unit PO DAILY cap 12/14/21 04/11/22 History mcg (1,000 unit) capsule (Vitamin D3) zinc 10 mg tablet 10 mg PO DAILY tab 12/14/21 04/11/22 History ferrous sulfate 324 mg (65 mg 324 mg PO DAILY #30 tab 01/18/22 04/11/22 Rx iron) tablet,delayed release blood sugar diagnostic (OneTouch #100 ea 03/01/22 03/24/22 Rx Verio test strips) blood sugar diagnostic (OneTouch #200 ea 03/01/22 03/24/22 Rx Verio test strips) pantoprazole 40 mg tablet,delayed 40 mg PO DAILY 90 Days #90 tab 03/01/22 04/11/22 Rx release atorvastatin 40 mg tablet 40 mg PO DAILY #90 tab 03/23/22 04/11/22 Rx metformin 1,000 mg tablet 1,000 mg PO BID #180 tab 03/23/22 04/11/22 Rx doxycycline monohydrate 100 mg 100 mg PO BID #14 cap 03/25/22 04/11/22 Rx capsule prednisone 10 mg tablet 10 mg PO DAILY #135 tab 04/04/22 04/11/22 Rx warfarin 5 mg tablet 5 mg PO QPM 04/11/22 04/11/22 History Patient History Medical History 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 Diabetes Factor V Leiden mutation GI (gastrointestinal bleed) History of TIA (transient ischemic attack) HTN (hypertension) Pulmonary embolism TIA (transient ischemic attack) Surgical History H/O: hysterectomy Family History Mother Diabetes Stroke Father Myocardial infarction Stroke Denies family history of Ovarian cancer Prostate cancer Breast cancer Colorectal cancer Hypertension Social History Smoking Status: Smoker, status unknown Second Hand Exposure: No; Hx Alcohol Use: No Hx Substance Use: No Preferred Language: Yoruba Communication Ability: Effective Visual Impairment: No Limitations Fibreglass Laminator Required: No Beliefs That Will Affect Care: None marital status: Current Living Situation: Spouse current occupational status: retired How many Children do You have: 4 Other Information That Helps Us Care for You: No Feels Safe at Home: Yes Safety Concerns: Feels Safe At This Time Childhood Exposure to Second-Hand Smoke: No caffeine: Yes Dental Care, Regularly: No Physical Activity Frequency: Daily Seatbelt Use: always Sunscreen Use: Yes Assistive Devices: None Review of Systems Review of Systems: All systems reviewed & are unremarkable except as noted in HPI & below Physical Exam Physical Exam: Temp Pulse Resp BP Pulse Ox 37 C 90 20 123/79 94 04/13/22 19:00 04/13/22 19:00 04/13/22 19:00 04/13/22 19:00 04/13/22 19:00 Constitutional: + ill appearing and + thin Respiratory: Mildly decreased breath sounds in the bases Cardiovascular: Rate/Rhythm: regular rate Heart Sounds: + murmur (2/6 systolic murmur with diminishment of the second heart sound) Extremities: no edema Gastrointestinal (Abdomen): normal bowel sounds, soft, nontender, no hepatosplenomegaly Neurologic: PERRL, EOMI, accommodation nl, no face palsy, no dysarthria Results & Data ([facility]) Vital Signs (Past 12 Hours) Vital Signs Temp Pulse Pulse Resp BP Pulse Ox 04/13/22 19:00 37 C 90 20 123/79 94 04/13/22 15:55 90 04/13/22 15:23 36.9 C 92 H 20 137/80 96 04/13/22 12:28 82 20 98 04/13/22 10:50 37.1 C 93 H 20 129/81 96 Laboratory Results Coagulation HS Troponin serial measurements performed 04/11/2022 until 04/11/2022 of 13.5, 18.6, 14.3, and 14 pg/ ml-most recent measurement 04/12/2022 11:38 AM proBNP screen 04/11/2022: 842 PG per mL, minimally elevated C-reactive protein 04/11/2022 2.76 mg/dL 04/13/22 Range/Units 07:24 PT 15.8 H (9.0-12.0) Seconds Comprehensive Metabolic Panel 04/13/22 Range/Units 07:24 Sodium 130 L (136-145) mmol/L Potassium 3.6 (3.5-5.1) mmol/L Chloride 94 L (98-107) mmol/L Carbon Dioxide 29 (21-32) mmol/L BUN 17 (6-23) mg/dl Creatinine 0.59 L (0.6-1.2) mg/dl Glucose 102 H (70-99(Fasting)) mg/dl Calcium 8.9 (8.5-10.1) mg/dl Intake and Output 04/13/22 04/13/22 04/13/22 06:59 14:59 22:59 Intake Total 100 / 310 715 / 715 Output Total 150 / 1575 Balance -50 / -1265 715 / 715 Intake: Oral 100 / 250 715 / 715 Output: Urine 150 / 1575 Other: # Unmeasured Voids 2 Weight 55.8 kg 55.8 kg Patient Weight 04/14/22 06:59 Weight 55.8 kg Diagnostic Findings Summary of CT of the chest, 04/12/2022: Summary of radiology report IMPRESSION: 1. Reticular opacities in the lungs compatible with history of sarcoidosis. 2. Partially calcified mediastinal lymph nodes compatible with sarcoidosis. 3. Bilateral small pleural effusions. 4. Thyroid tissue in the superior mediastinum, unchanged from prior exam. EKG performed 04/11/2022 and reviewed in [place] sinus tachycardia 117 bpm incomplete right bundle branch block, no significant repolarization changes Telemetry, sinus rhythm at 90 bpm, occasional PVCs.
[2022-04-13] MEDS: cefTRIAXone SODIUM 1,000 MG in DEXTROSE 5% 50 ML IV SCH (20:15)
--- NOTE | 2022-04-13 20:43 | Communication Note ---
Date of Service: April 13, 2022 When I initially interviewed the patient, I discussed her the options of hospital hospital transfer for expedited aortic valve work-up and she was in favor of this and willing to proceed with transfer. In follow-up, I called her , Nicola, by phone, updated him, he was also in favor of transfer and expedited evaluation and agrees that her shortness of breath has progressed to the point that intervention appears warranted.
[2022-04-14] MEDS: ALBUTEROL HFA 8 GM INHALER INH SCH ×4 (07:43→19:26)
--- NOTE | 2022-04-14 07:51 | Pulmonology Progress Note ---
Date of Service April 14, 2022 Assessment & Plan (1) Sarcoidosis: (2) Obstructive sleep apnea: (3) Shortness of breath: (4) Pulmonary hypertension: (5) Acute respiratory failure with hypoxia: Plan: CT chest 04/12/2022 personally reviewed: Bilateral upper lobe scarring with volume loss Bilateral pleural effusion more on the right side Left lower lobe granuloma Cardiomegaly Calcified mediastinal lymph nodes -- Acute respiratory failure with hypoxia Likely secondary to cardiac etiology BNP 842 Procalcitonin negative 2D echo 03/25/2022: Mild concentric LVH, severely dilated LA, severe valvular aortic stenosis, mild to moderate MS, moderate to severe MR, right ventricle normal in size and function -- History of sarcoidosis Stage IV with fibrosis of the lung Sarcoidosis it is usually not associated with pleural effusion I highly doubt patient has active sarcoidosis, she likely has burnt out sarcoidosis Patient has been on chronic prednisone 10 mg. As I stated I am not sure if she truly needs to be on prednisone Given that she has been on prednisone for a long time would continue with 10 mg --Increase pulmonary artery diameter Looking at the dimension of main pulmonary artery on the CT chest --CHALO Continue with BiPAP while in the hospital --History of active 5 Leiden deficiency On warfarin Plan: Clinically patient is doing better Continue with diuresis BiPAP nightly and as needed shortness of breath Okay to discontinue Rocephin, complete the course of doxycycline for 5 days No further recommendation from pulmonary perspective. We will sign off Please call directly with any questions Please note the above document was generated using voice recognition software. It may contain grammatical, syntax or spelling errors.Any formal questions or concerns about the content, text or information contained within the body of this dictation should be directly addressed to the provider for clarification. Admission and Anticipated Discharge Date Admission Date: April 13, 2022 Subjective Patient seen and examined at bedside. No acute distress, no adverse events overnight. Patient was looking more comfortable compared to when I saw her yesterday She states that shortness of breath is improved. She is urinating well. No chest pain, no headache, no nausea, no vomiting Fair appetite. Saturating 93-94% on room air Review of Systems Review of Systems: All systems reviewed & are unremarkable except as noted in Subjective Physical Exam Physical Exam: Constitutional: Mild respiratory distress HEENT: EOMI, PERRLA, positive JVD Respiratory system: Decreased air entry bilaterally, no wheeze, no rhonchi, mild crackles bilateral lower lobes CVS: S1-S2 positive, positive 3 out of 6 holosystolic murmur appreciated best at the apex Abdomen: Soft, nontender, nondistended, positive bowel sounds x4 Extremities: +2 pulses bilaterally radialis/ dorsalis pedis, no cyanosis, minimal pitting edema bilateral lower extremity Neuro: Awake alert oriented x3 Psych: Normal mood and affect G/U: No Irizarry Skin: no rashes, warm and dry Lymphatic: no cervical or axillary lymphadenopathy Results & Data Results & Data ([facility]) Vital Signs (Past 12 Hours) Vital Signs Temp Pulse Pulse Resp BP Pulse Ox 04/14/22 07:41 36.8 C 89 20 135/83 95 04/14/22 07:17 88 04/14/22 03:52 84 04/14/22 03:00 36.8 C 80 20 121/71 94 04/13/22 22:00 37 C 94 H 20 116/72 94 04/13/22 21:00 94 H 26 H 94 04/13/22 20:22 90 18 94 Laboratory Results 04/12/22 04:02 04/13/22 07:24 PG Care Time/CCT Total # of Minutes Spent Total Time Spent with Patient: Total time spent is greater than 50% in coordination of care (as documented) at patient's floor/unit and/or counseling patient: Coding Level of Care Code 13293 Subseq Hosp Care Lvl 2 Diagnoses Sarcoidosis D86.9 Obstructive sleep apnea G47.33 Shortness of breath R06.02 Pulmonary hypertension I27.20 Acute respiratory failure with hypoxia J96.01
--- NOTE | 2022-04-14 07:52 | Hospitalist Progress Note ---
Date of Service April 14, 2022 Assessment & Plan (1) Acute diastolic CHF (congestive heart failure): Plan: 2nd to severe . Recent echo with MATT of 0.3. That echo did show preserved EF. Moderate to severe MR Has been referred to [facility] Valve clinic for the severe to explore candidacy for TAVR. She does not follow regularly with any local shop [facility]. [facility] Cardiology consultation, I spoke personally spoke to Manoj Ramirez will help to determine if appropriate for valve repair s/p lasix 40mg 04/11& now on 20 mg a day consider low dose b Simon (2) Pleuritic chest pain: Plan: Rocephin/doxy if any infectious component. Steroids for sarcoid. pulmonary medicine does not feel sarcoid is active in her symptoms and reduced prednisone to 10 mg Recent echo with no pericardial effusion. (3) Sarcoidosis: Plan: Long-standing history, typically on chronic prednisone 10mg daily. previous attending has increased to 40mg/day, CRP noted to be mildly elevated. CT chest obtained c/w sarcoid, consult [facility] Pulmonary-doubt patient has active sarcoidosis, she likely has burnt out sarcoidosis but does not need any treatment (4) DM (diabetes mellitus), type 2: Plan: Hold Metformin Novolog SSI HbA1C 5.2% in 11/2021 (5) Obstructive sleep apnea: Plan: CPAP 4cm H20 nightly (6) Hypercholesterolemia: Plan: Continue Atorvastatin 40mg po daily (7) Factor V Leiden mutation: Plan: INr is subtherapeutic, will hold and place on heparin sc in case procedure will be warranted (8) History of TIA (transient ischemic attack): Plan: cont asa 81mg daily atorvastatin (9) Hyponatremia: Plan: persists, could be from diuretics Admission and Anticipated Discharge Date Admission Date: April 13, 2022 Results & Data Results & Data ([facility]) Vital Signs (Past 12 Hours) Vital Signs Temp Pulse Pulse Resp BP Pulse Ox 04/14/22 07:41 98.2 F 89 20 135/83 95 04/14/22 07:17 88 04/14/22 03:52 84 04/14/22 03:00 98.2 F 80 20 121/71 94 04/13/22 22:00 98.6 F 94 H 20 116/72 94 04/13/22 21:00 94 H 26 H 94 04/13/22 20:22 90 18 94 PG Care Time/CCT Total # of Minutes Spent Total Time Spent with Patient: Total time spent is greater than 50% in coordination of care (as documented) at patient's floor/unit and/or counseling patient: Coding Diagnoses Acute diastolic CHF (congestive heart failure) I50.31 Pleuritic chest pain R07.81 Sarcoidosis D86.9 DM (diabetes mellitus), type 2 E11.9 Obstructive sleep apnea G47.33 Hypercholesterolemia E78.00 Factor V Leiden mutation D68.51 History of TIA (transient ischemic attack) Z86.73 Hyponatremia E87.1
[2022-04-14 08:19] LABS: INR 1.5 (0.9-1.1); Prothrombin Time 15.9 Seconds (9.0-12.0)
[2022-04-14 08:31] LABS: BUN Creatinine Ratio 25.5 (10-20); Calcium 8.9 mg/dl (8.5-10.1); Creatinine Clr Calc Pharmacy 68.5 ml/min; Est GFR (African American) 106.7 ml/min; Est GFR (Non-African American) 92.1 ml/min; Magnesium 2.1 mg/dl (1.7-2.4); Potassium 3.6 mmol/L (3.5-5.1)
[2022-04-14] MEDS: INSULIN ASPART PER UNIT SC SCH ×3 (08:37→17:12)
[2022-04-14] MEDS: DOXYCYCLINE HYCLATE 100 MG CAP PO SCH (08:41)
[2022-04-14] MEDS: ASPIRIN 81 MG ECTAB PO SCH (08:41)
[2022-04-14] MEDS: FERROUS SULFATE 325 MG TAB PO SCH (08:41)
[2022-04-14] MEDS: PANTOprazole 40 MG TAB PO SCH (08:42)
[2022-04-14] MEDS: ATORVASTATIN 40 MG TAB PO SCH (08:42)
[2022-04-14] MEDS ORDERED: FUROSEMIDE INJ 20 MG/2 ML VIAL IV SCH (09:00)
[2022-04-14] MEDS ORDERED: FUROSEMIDE 40 MG TAB PO SCH (09:00)
[2022-04-14] MEDS ORDERED: predniSONE 10 MG TABLET PO SCH (09:00)
--- NOTE | 2022-04-14 10:51 | Cardiology Progress Note ---
Date of Service April 14, 2022 Assessment & Plan (1) Acute diastolic CHF (congestive heart failure): (2) Aortic stenosis: (3) Mitral regurgitation: Plan: 76-year-old frail female with longstanding history of pulmonary sarcoidosis for which she is on chronic prednisone, Factor V Leiden mutation with past venous thromboembolic event, multiple stroke events in the past, and is maintained on chronic Coumadin INR today, 1.5 presents with several weeks of progressive dyspnea culminating in chest tightness prompting hospitalization 04/11/2022. Images of recent echocardiogram reviewed independently. Based on the severe calcification of the mitral valve and mitral valve apparatus, and therefore surgical or percutaneous treatment likely not feasible with regards to the mitral valve stenosis/regurgitation, and I would speculate that if her aortic valve stenosis could be addressed via transcatheter approach, this would also improve her mitral regurgitation. INR below goal, 1.5. Will start UF heparin bridge, no bolus, with anticipated need for invasive procedure such as diagnostic cardiac catheterization. Continue cautious furosemide, 20 mg IV daily for now, given BMI 24 , frailty, critically severe . [place] accepted in [place] [facility] [place] pending availabiliy of bed. To be transferred via ACLS ground. Pt to follow up with me post hospital stay. Will arrange visit. Admission and Anticipated Discharge Date Admission Date: April 13, 2022 Subjective Mrs Navarro is seen in cardiology follow up. Remains dyspneic with minimal exertion, used her bronchodilator inhaler after making a short trip back from the bathroom to her bed this morning. She is supposed to be on 2 L nasal cannula oxygen at present, but the time my assessment, she was not wearing it. She does not wear oxygen at home on a chronic basis. Telemetry reveals sinus rhythm for the most part in the range of 80 to 90 bpm, with occasional PVCs. A 4 beat run of nonsustained ventricular tachycardia noted earlier this morning as well as a 5.8-second run of supraventricular tachycardia. Review of Systems Review of Systems: All systems reviewed & are unremarkable except as noted in HPI & below Physical Exam Physical Exam: Temp Pulse Resp BP Pulse Ox 36.8 C 90 18 135/83 94 04/14/22 07:41 04/14/22 07:45 04/14/22 07:45 04/14/22 07:41 04/14/22 07:45 Constitutional: + ill appearing and + thin Respiratory: mildly decreased BS at the bases Cardiovascular: Rate/Rhythm: regular rate Heart Sounds: + murmur (2/6 systolic murmur with diminishment of the second heart sound) Extremities: no edema Gastrointestinal (Abdomen): normal bowel sounds, soft, nontender, no hepatosplenomegaly Neurologic: PERRL, EOMI, accommodation nl, no face palsy, no dysarthria Results & Data ([facility]) Vital Signs (Past 12 Hours) Vital Signs Temp Pulse Pulse Resp BP Pulse Ox 04/14/22 07:45 90 18 94 04/14/22 07:41 36.8 C 89 20 135/83 95 04/14/22 07:17 88 04/14/22 03:52 84 04/14/22 03:00 36.8 C 80 20 121/71 94 Laboratory Results Coagulation 04/14/22 Range/Units 07:38 PT 15.9 H (9.0-12.0) Seconds Comprehensive Metabolic Panel 04/14/22 Range/Units 07:38 Sodium 133 L (136-145) mmol/L Potassium 3.6 (3.5-5.1) mmol/L Chloride 98 (98-107) mmol/L Carbon Dioxide 28 (21-32) mmol/L BUN 13 (6-23) mg/dl Creatinine 0.51 L (0.6-1.2) mg/dl Glucose 105 H (70-99(Fasting)) mg/dl Calcium 8.9 (8.5-10.1) mg/dl Intake and Output 04/13/22 04/14/22 04/14/22 22:59 06:59 14:59 Intake Total 340 / 1255 200 / 1255 Balance 340 / 1255 200 / 1255 Intake: IV 60 / 60 cefTRIAXone SODIUM 1,000 mg In 60 / 60 Dextrose 5% 50 ml @ 100 mls/hr IV Q24H REPLACED BY [facility] Rx#:[id number] Oral 280 / 1195 200 / 1195 Other: Weight 54.5 kg
[2022-04-14] MEDS ORDERED: HEPARIN SODIUM/DEXTROSE 25,000 UNITS/500 ML BAG IV SCH (11:00)
[2022-04-14] MEDS: Heparin IV Adult Wt-Based Standard *NO* Bolus Protocol IV SCH (11:26)
[2022-04-14 12:16] LABS: Basophils # (auto) 0.03 K/uL (0-0.2); Basophils % (auto) 0.2 %; Eosinophils # (auto) 0.02 K/uL (0-0.5); Eosinophils % (auto) 0.2 %; Hematocrit (blood only) 35.8 % (37-47); Hemoglobin 11.4 g/dL (12.0-16.0); Immature Granulocytes # (auto) 0.03 K/uL (0.00-0.02); Immature Granulocytes % (auto) 0.2 %; Lymphocytes # (auto) 0.53 K/uL (1.2-3.4); Lymphocytes % (auto) 4.1 %; Mean Corpuscular Hemoglobin 26.8 pg (25-34); Mean Platelet Volume 9.3 fL (7.4-10.4); Monocytes # (auto) 0.95 K/uL (0.11-0.59); Monocytes % (auto) 7.4 %; Neutrophils # (auto) 11.27 K/uL (1.4-6.5); Neutrophils % (auto) 87.9 %; Platelet Count 287 K/uL (130-400); RDW Coefficient of Variation 18.5 % (11.5-14.5); RDW Standard Deviation 57.7 fL (36.4-46.3); Red Blood Count 4.26 M/uL (4.2-5.4); White Blood Count 12.83 K/uL (4.8-10.8)
[2022-04-14 12:22] LABS: INR 1.6 (0.9-1.1); Partial Thromboplastin Ratio 1.3; Prothrombin Time 16.2 Seconds (9.0-12.0)
[2022-04-14 12:35] LABS: Mean Corpuscular Hgb Conc 31.8 g/dL (32-36)
--- NOTE | 2022-04-14 17:10 | Discharge Summary ---
Date of Service April 14, 2022 Admission HPI Per Admitting Provider 76 YOF with medical history of: Aortic Stenosis, TIA, DM II, Factor V Leiden mutation(on Coumadin), Sarcoidosis, gastritis with UGIB, CHALO (CPAP 4). Patient comes to the EMD today for complaints of 2 day history of chest pain and dyspnea. Patient reports that she was diagnosed with "pneumonia" earlier in the month- she was started on Doxycycline had ECHO and CXR performed on [id number]. She also endorses that she had her lasix stopped at that time, and since then she has continued to feel short of breath and congested. Her ECHO at that time was notable for severe aortic stenosis and severe mitral annular calcification resulting in severe MR with stenosis. Her chest discomfort is at the center of her chest and feels worse when she breaths in and or coughs. She thinks it may worsen with position changes, but is not certain. She describes can't give a good descriptor of the pain type. In the EMD the patient had routine labs done to include HScTNI, BNP, CXR and ECG. For her complaints of chest discomfort she was given asa 324mg, nitroglycerine, morphine and fentanyl. Her initial HScTNI was 13.5. The patient remains therapeutic with her Warfarin and denies missing dose. She remains dyspneic with cough, and inspiratory expiratory wheezing. Patient will be observed for her chest pain and dyspnea. Will recheck her HScTNI >2 hour after initial, PCT, CRP, ESR. COVID/FLU/RSV: NEGATIVE on admission Principal Diagnosis critical Aortic stenosis acute on chronic diastolic heart failure h/o sarcoid Discharge Exam The patient is dyspneic in conversation Vital signs as documented. Lungs are clear to auscultation and appear unlabored Cardiac exam, Rhythm is regular.. JEN is heard at rusb Abdominal exam reveals normal bowel sounds, soft non tender, no masses Extremities are nonedematous and both pedal pulses are normal. Neurologic exam is alert and oriented, no focal loss of strength or sensation Skin is without bruises or rashes Psychologically is without concerns for anxiety or depression. Discharge Data Allergies Allergy/AdvReac Type Severity Reaction Status Date / Time chocolate flavor Allergy Unknown Headache Verified 04/11/22 19:10 Consultations 04/11/22 17:51 ED Decision to Admit Stat 04/12/22 20:47 Consult Pulmonology Routine 04/13/22 15:31 Consult Cardiology Routine 04/13/22 19:59 Burn CD for patient Routine Ordered Studies 04/12/22 07:30 CT chest diagnostic wo con Routine Hospital Course (1) Acute diastolic CHF (congestive heart failure): 2nd to severe . Recent echo with MATT of 0.3. That echo did show preserved EF. Moderate to severe MR Has been referred to [facility] clinic for the severe to explore candidacy for TAVR. She does not follow regularly with any local licensed occupational therapy assistant. [facility] consultation, I spoke personally spoke to Manoj Ramirez who discussed with Dr Jordin Cabral of cardiology at [facility] who accept pt in transfer. Pt stable for transfer via [facility]. s/p lasix 40mg 04/11& now on 20 mg a day consider low dose b Simon (2) Pleuritic chest pain: antibiotics are complete Steroids for sarcoid. pulmonary medicine does not feel sarcoid is active in her symptoms and reduced prednisone to 10 mg Recent echo with no pericardial effusion. (3) Sarcoidosis: Long-standing history, typically on chronic prednisone 10mg daily. previous attending has increased to 40mg/day, CRP noted to be mildly elevated. CT chest obtained c/w sarcoid, consult [facility]-doubt patient has active sarcoidosis, she likely has burnt out sarcoidosis but does not need any treatment (4) DM (diabetes mellitus), type 2: Hold Metformin Novolog SSI HbA1C 5.2% in 11/2021 (5) Obstructive sleep apnea: CPAP 4cm H20 nightly (6) Hypercholesterolemia: Continue Atorvastatin 40mg po daily (7) Factor V Leiden mutation: INr is subtherapeutic, 1.6, will hold and place on heparin sc in case procedure will be warranted (8) History of TIA (transient ischemic attack): cont asa 81mg daily atorvastatin (9) Hyponatremia: persists, could be from diuretics Total Time Total Time Spent Total Time Spent (In Minutes): It required greater than 30 minutes to prepare this patient for discharge Discharge Plan Discharge Items Patient Disposition: Transfer Acute Care Hospital Reason For Visit: CHEST PAIN,DYSPNEA Discharge Diagnosis: critical aortic stenosis Activity: Per Instructions section Non-emergency contact: Primary Care Provider and Department Coordinator Call non-emergency contact if: your symptoms worsen Follow-up/Referrals: Jessenia Dennis CRNP [Primary Care Provider] - Diet: Low Sodium (2gm) Addtl Attending Provider Instructions: as per final disposition from [facility] Pending Studies at Discharge: No Stand-Alone Forms: My [facility] Skilled Items Patient informed of condition?: Yes DNR: No Discharge Level of Care: Other Communicable Disease: No Discharge Prognosis: Stable Lines: Peripheral IV Urinary Catheter: No Medications and DC Order Prescriptions: Continued (DME) OneTouch Verio test strips Strip See Rx Instructions .Route Qty: 200 RF: 3 pantoprazole 40 mg tablet,delayed release (DR/EC) 40 mg PO DAILY 90 Days Qty: 90 RF: 3 (DME) OneTouch Verio test strips Strip See Dose Instructions .ROUTE .MEDSUPPLY Qty: 100 RF: 3 atorvastatin 40 mg tablet 40 mg PO DAILY Qty: 90 RF: 3 prednisone 10 mg tablet 10 mg PO DAILY Qty: 135 RF: 3 albuterol sulfate 90 mcg/actuation HFA aerosol inhaler 1 inh inhalation Q4H PRN (Reason: Shortness Of Breath Or Wheezing) RF: 0 ferrous sulfate 324 mg (65 mg iron) tablet,delayed release (DR/EC) 324 mg PO DAILY Qty: 30 RF: 4 latanoprost 0.005 % drops 1 drp OPB HS RF: 0 ascorbic acid (vitamin C) [Vitamin C] 1,000 mg Tablet 1 g PO DAILY RF: 0 vitamin E 400 unit Tablet 0 mg PO DAILY RF: 0 vitamin B complex Tablet 1 tab PO DAILY RF: 0 aspirin [Ecotrin Low Strength] 81 mg tablet,delayed release (DR/EC) 81 mg PO DAILY RF: 0 cholecalciferol (vitamin D3) [Vitamin D3] 25 mcg (1,000 unit) capsule 1,000 unit PO DAILY RF: 0 zinc 10 mg tablet 10 mg PO DAILY RF: 0 Discontinued metformin 1,000 mg tablet 1,000 mg PO BID Qty: 180 RF: 3 doxycycline monohydrate 100 mg capsule 100 mg PO BID Qty: 14 RF: 0 warfarin 5 mg tablet 5 mg PO QPM RF: 0 Discharge Orders: Discharge Order (Routine); Ordered 04/14/22 Ordered By: Yrn Lainez Admission Data Admit Date/Time: 04/13/22 08:48 Attending Provider: Yrn Lainez Admit Provider: Cruz Lopes Primary Care Provider: Jessenia Dennis Other Providers: Cruz Lopes ; Mahesh Britton ; Familia Mina Coding Level of Care Code D/C DAY MANAGEMENT >30 MINS Diagnoses Acute diastolic CHF (congestive heart failure) I50.31 Pleuritic chest pain R07.81 Sarcoidosis D86.9 DM (diabetes mellitus), type 2 E11.9 Obstructive sleep apnea G47.33 Hypercholesterolemia E78.00 Factor V Leiden mutation D68.51 History of TIA (transient ischemic attack) Z86.73 Hyponatremia E87.1
[2022-04-14 18:32] LABS: Partial Thromboplastin Ratio 1.9
[2022-04-14 18:34] LABS: Partial Thromboplastin Time 53.5 Seconds (21.0-31.0)
== END 2022-04-14 21:20 | disposition short-term general hospital (02) | DRG 291 ==
LOC: ED 15:28 → EDINP 15:28 → SUATTDRO 19:20 → 2W 04-12 14:10